=== PATIENT | female | born 1970 | race Caucasian/White ===

== ENCOUNTER 2017-05-28 16:12 | Emergency (ER) | payer OTHER, BC ==
[2017-05-28 16:44] VITALS: BP 118/65
--- NOTE | 2017-05-28 16:51 | EDM.PDOC ---
ED HPI GENERAL MEDICAL PROBLEM - General Chief Complaint: Back Pain or Injury Stated Complaint: INJURED BACK Time Seen by Provider: 05/28/17 16:50 Source of Information: Reports: Patient - History of Present Illness INITIAL COMMENTS - FREE TEXT/NARRATIVE: Patient is here for evaluation for pain to her right middle back. She states that yesterday around 2:50 PM she was at work at [employer] throwing things into the dumpster, she states that she did back up and hit her right middle back on a metal piece that was sticking out of another dumpster. Patient states that she had immediate pain but thought it would get better. She states that when she awoke this morning her pain persisted. As she was at work today pulling carts and lifting things the pain to her right middle back worsened. It is very localized pain and does not radiate. She states that she does have chronic lower back and hip pain, she is under pain management contract and was quick to point this out as she does not want to violate this. Middle Back Pain Score (Numeric/FACES): 7 - Related Data Allergies Allergy/AdvReac Type Severity Reaction Status Date / Time Iodinated Contrast- Oral and AdvReac Shaking Verified 05/28/17 16:45 IV Dye iopamidol [From Isovue-M] AdvReac Shaking Verified 05/28/17 16:45 Home Meds: Home Meds Albuterol Sulfate [Proair Hfa] 2 puff INH BID PRN 04/20/15 [History] Lisinopril/Hydrochlorothiazide [Zestoretic 10-12.5 mg Tablet] 1 each PO DAILY [History] Omeprazole [Prilosec] 1 tab PO DAILY 04/20/15 [History] atorvaSTATin [Lipitor] 1 tab PO DAILY 04/20/15 [History] Acetaminophen with Codeine [Acetamin-Codein 300-30 mg/12.5] 12.5 ml PO Q6H PRN # 120 ml 01/23/16 [Rx] Hydrocodone/Acetaminophen [Hydrocodon-Acetaminophn 10-325] 1 - 2 tab PO Q6H PRN 01/23/16 [History] Ondansetron [Zofran ODT] 4 mg PO Q4H PRN 01/23/16 [History] Amitriptyline [Elavil] 50 mg PO BEDTIME 05/28/17 [History] LORazepam 1 mg PO DAILY 05/28/17 [History] Ranitidine HCl [Ranitidine] 150 mg PO BID 05/28/17 [History] Past Medical History HEENT History: Reports: Impaired Vision Other HEENT History: Glasses Cardiovascular History: Reports: SOB on Exertion Respiratory History: Reports: SOB Gastrointestinal History: Reports: Other (See Below) Other Gastrointestinal History: Precancerous colon Genitourinary History: Reports: Retention, 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: , Other (See Below) Other OB/BYN History: ovarian sx Musculoskeletal History: Reports: Fracture Neurological History: Reports: Concussion - Infectious Disease History Infectious Disease History: Reports: Chicken Pox - Past Surgical History GI Surgical History: Reports: Appendectomy, Cholecystectomy, Hernia, Inguinal Female Surgical History: Reports: Hysterectomy, Tubal Ligation Musculoskeletal Surgical History: Reports: Other (See Below) Social & Family History - Family History Family Medical History: Noncontributory - Tobacco Use Smoking Status *Q: Never Smoker Years of Tobacco use: 1 Used Tobacco, but Quit: Yes Month Tobacco Last Used: 2008 Second Hand Smoke Exposure: No - Caffeine Use Caffeine Use: Reports: Coffee - Alcohol Use Days Per Week of Alcohol Use: 0 Number of Drinks Per Day: 0 Total Drinks Per Week: 0 - Recreational Drug Use Recreational Drug Use: No Drug Use in Last 12 Months: No - Living Situation & Occupation Occupation: Employed ED ROS GENERAL - Review of Systems Review Of Systems: See Below Constitutional: Reports: No Symptoms Respiratory: Reports: No Symptoms Cardiovascular: Reports: No Symptoms Musculoskeletal: Reports: Back Pain, Other (Right middle back pain.) Skin: Reports: No Symptoms Neurological: Reports: No Symptoms ED EXAM,LOWER BACK PAIN/INJURY - Physical Exam Exam: See Below Exam Limited By: No Limitations General Appearance: Alert, WD/WN, No Apparent Distress Respiratory/Chest: No Respiratory Distress, Lungs Clear, Normal Breath Sounds Cardiovascular: Regular Rate, Rhythm, No Murmur, No Rub Back Exam: Other (1"contusion to her right middle back at approximately the level of T12. Localized tenderness to this and mild surrounding tenderness. No tenderness to thoracic or lumbar spinous process. No muscle spasms noted. Patient has limited overall flexibility of her back but this appears chronic and not related to injury.) Neurological: Alert, Normal Mood/Affect, Oriented x 3 Psychiatric: Normal Affect, Normal Mood Skin Exam: Warm, Dry, Intact, Ecchymosis (1 inch area of ecchymosis to her right middle back.) Course - Vital Signs Last Recorded V/S: Last Vital Signs Temp 97.6 F 05/28/17 16:41 Pulse 62 05/28/17 16:41 Resp 18 05/28/17 16:41 BP 118/65 05/28/17 16:41 Pulse Ox 98 05/28/17 16:41 - Orders/Labs/Meds Orders: Active Orders 24 hr Category Date Time Status Ribs 2V w Chest Rt [CR] Stat Exams 05/28/17 17:04 Taken Meds: Medications Discontinued Medications Generic Name Dose Route Start Last Admin Trade Name Rolly PRN Reason Stop Dose Admin Ketorolac Tromethamine 30 mg 05/28/17 16:59 05/28/17 17:03 Toradol IM 05/28/17 17:00 30 mg ONETIME ONE Administration - Re-Assessments/Exams Free Text/Narrative Re-Assessment/Exam: Localized contusion and associated tenderness. With her amount of pain question if possible rib injury. Will get rib x-ray. Toradol injection for pain. 05/28/17 17:[address] Hayden, no rib fracture noted. Contusion of right mid- back. Recommend rest, ice, NSAIDs. She has hydrocodone for breakthrough pain. No lifting/pushing/pulling >20lbs. She is to FU with PCP in 1 week or return to ER if needed. 05/28/17 18:29 Departure - Departure Time of Disposition: 18:11 Disposition: Home, Self-Care 01 Condition: Good Clinical Impression: Contusion Qualifiers: Encounter type: initial encounter Laterality: right - Discharge Information Instructions: Contusion Referrals: Rupal Helms [facility] [employer] [Primary Care Provider] - Forms: ED Department Discharge, ED Return to Work/School Form Additional Instructions: You were evaluated today in the Emergency room for back pain, xray did not demonstrate any fracture. You have a contusion (bruise) to your back. I recommend you rest, ice 15 minutes every few hours as needed for pain. No lifting/pushing/pulling over 20lbs for 1 week. Ibuprofen 800mg 3x daily as needed for pain, you also have your hydrocodone for breakthrough pain. Follow-up with your PCP in 1 week or sooner if needed, you may return to ER if any worsening. - My Orders Last 24 Hours: My Active Orders 05/28/17 17:04 Ribs 2V w Chest Rt [CR] Stat - Assessment/Plan Last 24 Hours: My Active Orders 05/28/17 17:04 Ribs 2V w Chest Rt [CR] Stat
[2017-05-28] MEDS ORDERED: Ketorolac 30 MG/ML SDV IM ONE (16:59)
--- NOTE | 2017-05-29 06:55 | CR ---
Chest and right ribs: Frontal view of the chest was obtained as well as three views of the right ribs. Comparison: Prior chest x-ray of 01/23/16. Heart size and mediastinum are within normal limits. Lungs are clear. Surgical clips are noted within the upper right abdomen from previous cholecystectomy. No discrete right sided rib abnormality is seen. Impression: 1. No discrete right-sided rib abnormality is appreciated. Nothing acute is seen on accompanying chest x-ray. Diagnostic code #2
== END 2017-05-28 18:20 | disposition home or self-care (01) ==
LOC: JD.ED 16:12
DX: S20.221A Contusion of right back wall of thorax, initial encounter (principal); Z91.041 Radiographic dye allergy status; Z79.899 Other long term (current) drug therapy; Z87.891 Personal history of nicotine dependence; W22.8XXA Striking against or struck by other objects, initial encounter
CPT/HCPCS: 71101; 96372; 99283; J1885; 99282

== ENCOUNTER 2017-10-09 14:40 | Emergency (ER) | payer BC, OTHER ==
--- NOTE | 2017-10-09 15:53 | EDM.PDOC ---
<Linda Christie - Last Filed: 10/09/17 15:48> ED HPI GENERAL MEDICAL PROBLEM - General Chief Complaint: Abdominal Pain Stated Complaint: ABD PAIN Time Seen by Provider: 10/09/17 15:30 Source of Information: Reports: Patient History Limitations: Reports: No Limitations - History of Present Illness INITIAL COMMENTS - FREE TEXT/NARRATIVE: 47 yo female presents for worsening abdominal pain over the past 5 days. She states she has chronic abdominal for the past few years with intermittent diarrhea and nausea. She feels her symptoms today are similar but have become much worse than they have been in a long time. She returned from [facility] today after visiting her for the past 10 days. She believes her symptoms started long before her travel and does not associate her loose stool with travel or dietary changes. Her main complaint today is RUQ abdominal pain that is always there and waxes and wanes throughout the day. She believes nothing has made it better, no position improves pain. She took a Zofran this morning for nausea but vomited anyways. Her last bowel movement was last night. She said she has had blood in her stool on occasion, but has had a previous workup for this and colonoscopy with no diagnosis. She has been able to keep fluids down today. She has an appt to see here PCP on 10/16/17 and a GI specialist in [place] on 10/24/17. Onset: Gradual Duration: Chronic (years, but worse over the past 5 days), Getting Worse Location: Reports: Abdomen Quality: Reports: Sharp, Stabbing, Other (with cramping) Severity: Moderate Improves with: Reports: None Worsens with: Reports: None Associated Symptoms: Reports: Nausea/Vomiting, Other (diarrhea) RUQ Pain Score (Numeric/FACES): 5 - Related Data Allergies Allergy/AdvReac Type Severity Reaction Status Date / Time Iodinated Contrast- Oral and AdvReac Shaking Verified 10/09/17 14:52 IV Dye iopamidol [From Isovue-M] AdvReac Shaking Verified 10/09/17 14:52 Home Meds: Home Meds Albuterol Sulfate [Proair Hfa] 2 puff INH BID PRN 04/20/15 [History] Lisinopril/Hydrochlorothiazide [Zestoretic 10-12.5 mg Tablet] 1 each PO DAILY [History] Omeprazole [Prilosec] 1 tab PO DAILY 04/20/15 [History] atorvaSTATin [Lipitor] 1 tab PO DAILY 04/20/15 [History] Hydrocodone/Acetaminophen [Hydrocodon-Acetaminophn 10-325] 1 - 2 tab PO Q6H [History] Ondansetron [Zofran ODT] 4 mg PO Q4H PRN 01/23/16 [History] LORazepam 1 mg PO DAILY 05/28/17 [History] Doxepin HCl [Doxepin] 50 mg PO DAILY 10/09/17 [History] Doxycycline [Doxycycline Monohydrate] 100 mg PO BID 10/09/17 [History] Past Medical History HEENT History: Reports: Impaired Vision Other HEENT History: Glasses Cardiovascular History: Reports: SOB on Exertion Respiratory History: Reports: SOB Gastrointestinal History: Reports: Gastritis, GERD, Other (See Below) Other Gastrointestinal History: Precancerous colon, chronic abdominal pain Genitourinary History: Reports: Retention, 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: , Other (See Below) Other OB/BYN History: ovarian sx Musculoskeletal History: Reports: Fracture Neurological History: Reports: Concussion Psychiatric History: Reports: Anxiety - Infectious Disease History Infectious Disease History: Reports: Chicken Pox Other Infectious Disease History: recent trip to [facility], [place] - Past Surgical History GI Surgical History: Reports: Appendectomy, Cholecystectomy, Colonoscopy, Hernia , Inguinal Female Surgical History: Reports: Hysterectomy, Tubal Ligation Musculoskeletal Surgical History: Reports: Other (See Below) Social & Family History - Family History Family Medical History: Noncontributory - Tobacco Use Smoking Status *Q: Never Smoker Second Hand Smoke Exposure: No - Caffeine Use Caffeine Use: Reports: Coffee - Recreational Drug Use Recreational Drug Use: No - Living Situation & Occupation Occupation: Employed ED ROS GENERAL - Review of Systems Review Of Systems: See Below Constitutional: Reports: Fever (not measured) HEENT: Reports: No Symptoms Respiratory: Reports: No Symptoms Cardiovascular: Reports: No Symptoms Endocrine: Reports: No Symptoms GI/Abdominal: Reports: Abdominal Pain (Right side, RUQ the worst ), Bloody Stool , Diarrhea (with urgency and frequent ), Nausea, Vomiting : Reports: No Symptoms Neurological: Reports: Other (mild lightheadedness ). Denies: Headache, Numbness, Paresthesia, Weakness ED EXAM, GI/ABD - Physical Exam Exam: See Below Exam Limited By: No Limitations General Appearance: Alert, WD/WN, Mild Distress Ears: Normal External Exam, Hearing Grossly Normal Head: Atraumatic, Normocephalic Neck: Normal Inspection, Supple, Full Range of Motion Respiratory/Chest: No Respiratory Distress, Lungs Clear, Normal Breath Sounds, No Accessory Muscle Use Cardiovascular: Normal Peripheral Pulses, Regular Rate, Rhythm, No Edema, No Murmur, No Rub GI/Abdominal Exam: Normal Bowel Sounds, Soft, No Distention, Tender (RUQ with light palpation, minimal guarding of the right side) Extremities: Normal Inspection, Non-Tender, No Pedal Edema Neurological: Alert, Oriented, Normal Cognition, No Motor/Sensory Deficits Psychiatric: Normal Affect, Normal Mood Skin Exam: Warm, Dry, Intact, Normal Color Course - Vital Signs Last Recorded V/S: Last Vital Signs Temp 97.3 F 10/09/17 14:46 Pulse 64 10/09/17 19:10 Resp 17 10/09/17 19:10 BP 98/46 L 10/09/17 19:10 Pulse Ox 95 10/09/17 19:10 - Orders/Labs/Meds Labs: Laboratory Tests 10/09/17 10/09/17 Range/Units 16:16 16:16 WBC 7.81 (3.98-10.04) K/mm3 RBC 4.17 (3.98-5.22) M/mm3 Hgb 12.8 (11.2-15.7) gm/L Hct 36.9 (34.1-44.9) % MCV 88.5 (79.4-94.8) fl MCH 30.7 (25.6-32.2) pg MCHC 34.7 (32.2-35.5) g/dl RDW Std Deviation 39.9 (36.4-46.3) fL Plt Count 308 (182-369) K/mm3 MPV 10.3 (9.4-12.3) fl Neut % (Auto) 55.2 (34.0-71.1) % Lymph % (Auto) 33.0 (19.3-51.7) % Thomas % (Auto) 9.3 (4.7-12.5) % Eos % (Auto) 1.8 (0.7-5.8) Baso % (Auto) 0.4 (0.1-1.2) % Neut # (Auto) 4.31 (1.56-6.13) K/mm3 Lymph # (Auto) 2.58 (1.18-3.74) K/mm3 Thomas # (Auto) 0.73 H (0.24-0.36) K/mm3 Eos # (Auto) 0.14 (0.04-0.36) K/mm3 Baso # (Auto) 0.03 (0.01-0.08) K/mm3 Sodium 144 (136-145) mEq/L Potassium 2.9 L (3.5-5.1) mEq/L Chloride 107 (98-107) mEq/L Carbon Dioxide 26 (21-32) mEq/L Anion Gap 13.9 (5-15) BUN 16 (7-18) mg/dL Creatinine 1.1 H (0.55-1.02) mg/dL Est Cr Clr Drug Dosing 44.93 mL/min Estimated GFR (MDRD) 53 (>60) mL/min BUN/Creatinine Ratio 14.5 (14-18) Glucose 104 (74-106) mg/dL Calcium 9.0 (8.5-10.1) mg/dL Total Bilirubin 0.6 (0.2-1.0) mg/dL AST 22 (15-37) U/L ALT 46 (14-59) U/L Alkaline Phosphatase 76 (46-116) U/L Total Protein 6.7 (6.4-8.2) g/dl Albumin 3.6 (3.4-5.0) g/dl Globulin 3.1 gm/dL Albumin/Globulin Ratio 1.2 (1-2) Lipase 183 (73-393) U/L Meds: Medications Discontinued Medications Generic Name Dose Route Start Last Admin Trade Name Freq PRN Reason Stop Dose Admin Dicyclomine HCl 20 mg 10/09/17 16:29 10/09/17 17:07 Bentyl IM 10/09/17 16:30 20 mg ONETIME ONE Administration Diphenhydramine HCl 50 mg 10/09/17 16:32 10/09/17 17:00 Benadryl IVPUSH 10/09/17 16:33 50 mg ONETIME ONE Administration Hydromorphone HCl 1 mg 10/09/17 16:29 10/09/17 17:03 Dilaudid IVPUSH 10/09/17 16:30 1 mg ONETIME ONE Administration Sodium Chloride 1,000 mls @ 999 mls/hr 10/09/17 16:29 10/09/17 16:57 Normal Saline IV 10/09/17 17:29 999 mls/hr ONETIME ONE Administration Metoclopramide HCl 7.5 mg 10/09/17 16:31 10/09/17 16:58 Reglan IVPUSH 10/09/17 16:32 7.5 mg ONETIME ONE Administration Potassium Chloride 20 meq 10/09/17 19:10 10/09/17 19:12 Klor-Con M20 PO 10/09/17 19:11 20 meq ONETIME STA Administration Sodium Chloride 10 ml 10/09/17 16:29 10/09/17 16:57 Saline Flush FLUSH 10 ml ASDIRECTED PRN Administration Keep Vein Open Departure - Departure Disposition: Home, Self-Care 01 Clinical Impression: Abdominal pain - Discharge Information Instructions: Abdominal Pain, Adult Referrals: Rupal Helms, [employer] [Primary Care Provider] - Forms: ED Department Discharge Additional Instructions: Your given medication the other can affect your ability to drive and operate machinery. Do not drive or operate machinery within 12 hours of taking prescription narcotic pain medication. take you pain medication that you have at home as needed for additional discomfort. Recommend clear fluids the next day. May advance to bland diet as tolerated. Continue with your current plan of care. Follow-up with GI as planned. Follow- up with your PCP as planned. Recommend starting a probiotic if you are not already on one. These are available [id number]. Please return to the ER for symptoms change or worsen. <Haleigh Sheth - Last Filed: 10/11/17 15:50> ED HPI GENERAL MEDICAL PROBLEM - History of Present Illness INITIAL COMMENTS - FREE TEXT/NARRATIVE: I have seen the patient and agree with the HPI as documented by Linda Christie. WENDY. Patient reports to me the vomiting started today. She had 2 episodes of billious emesis today. No fevers or chills. She reports the abdominal pain in the epigastric and RUQ has been worsening over the last 2 months. Patient has seen GI in the past. She was referred to [facility] but has not gone. Patient is currently in a pain contrast from chronic pelvic and hip pain. Last pain medication was earlier today. ED EXAM, GI/ABD - Physical Exam GI/Abdominal Exam: No: Rigid, Rebound Course - Radiology Interpretation Free Text/Narrative:: CT abdomen and pelvis Technique: Multiple axial sections were obtained from above the dome of the diaphragm inferiorly to the pubic symphysis. Intravenous and oral contrast not utilized which diminishes details of the exam. Findings: Visualized lung bases shows nothing acute. Noncontrast appearance of the liver and spleen shows no discrete abnormality. Low-density lesion noted within the upper left kidney measuring about 3.6 cm compatible with a cyst. Small nonobstructing calculi measuring several millimeters are seen within the mid and upper left kidney. No ureteral dilatation or ureteral calculi are seen. Adrenal glands show no nodule. Pancreas is within normal limits. Aorta shows atherosclerotic calcification. No aneurysm is seen. No retroperitoneal adenopathy or mesenteric abnormalities are seen. No pelvic mass or adenopathy is seen. Diverticuli are seen within the sigmoid colon without diverticulitis. No bowel dilatation is seen. No bowel wall thickening is identified. Appendix is not visualized with certainty. Bone window settings were reviewed which appears within normal limits for the patient's age. Impression: 1. Incidental findings. Nothing acute is identified on noncontrast CT study of the abdomen and pelvis. Abdomen: Supine and upright views of the abdomen were obtained. Several air-fluid levels are seen within nondilated small bowel which are felt to be incidental. Surgical clips are seen from prior cholecystectomy. Bony structures appear within normal limits for the patient's age. No free air is identified. Impression: 1. Several air-fluid levels within nondilated bowel believed to be normal variant. 2. Nothing acute is seen. - Re-Assessments/Exams Free Text/Narrative Re-Assessment/Exam: 10/09/17 17:16 Reviewed the xray and the labs with the patient. Discussed CT. She has an allergy to IV and oral contrast. If the few air fluids lines are from a bowel obstruction, which I have a low suspicion for, it would likely only be a partial bowel obstruction in which case the treatment plan of bowel rest would be the same. Informed the patient that the CT would not change the treatment plan. She would like to proceed with the CT anyways. 10/11/17 18:[address] results with the patient. Recommend bowel rest clear fluids and a bland diet as tolerated starting tomorrow. Discharge instructions as documented . 10/11/17 19:29 Patient requested more pain medication after discharge. Offered toradol for pain relief, she declined. Still continue with current plan. Departure - Departure Time of Disposition: 18:47 Condition: Fair
[2017-10-09] MEDS ORDERED: Sodium Chloride 0.9% 1,000 ML IV ONE (16:29)
[2017-10-09] MEDS ORDERED: HYDROmorphone 0.5 MG/0.5 ML SYRINGE IVPUSH ONE (16:29)
[2017-10-09] MEDS ORDERED: Dicyclomine 20 MG/2 ML SDV IM ONE (16:29)
[2017-10-09] MEDS ORDERED: Sodium Chloride 0.9% 10 ML Syringe FLUSH PRN (16:29)
[2017-10-09] MEDS ORDERED: Metoclopramide 10 MG/2 ML SDV IVPUSH ONE (16:31)
[2017-10-09] MEDS ORDERED: diphenhydrAMINE 50 MG/ML SDV IVPUSH ONE (16:32)
--- NOTE | 2017-10-09 18:15 | CT ---
CT abdomen and pelvis Technique: Multiple axial sections were obtained from above the dome of the diaphragm inferiorly to the pubic symphysis. Intravenous and oral contrast not utilized which diminishes details of the exam. Findings: Visualized lung bases shows nothing acute. Noncontrast appearance of the liver and spleen shows no discrete abnormality. Low-density lesion noted within the upper left kidney measuring about 3.6 cm compatible with a cyst. Small nonobstructing calculi measuring several millimeters are seen within the mid and upper left kidney. No ureteral dilatation or ureteral calculi are seen. Adrenal glands show no nodule. Pancreas is within normal limits. Aorta shows atherosclerotic calcification. No aneurysm is seen. No retroperitoneal adenopathy or mesenteric abnormalities are seen. No pelvic mass or adenopathy is seen. Diverticuli are seen within the sigmoid colon without diverticulitis. No bowel dilatation is seen. No bowel wall thickening is identified. Appendix is not visualized with certainty. Bone window settings were reviewed which appears within normal limits for the patient's age. Impression: 1. Incidental findings. Nothing acute is identified on noncontrast CT study of the abdomen and pelvis. Diagnostic code #2
[2017-10-09] MEDS ORDERED: Potassium Chloride 20 MEQ Tab.ER PO STA (19:10)
[2017-10-09 19:45] VITALS: BP 98/46
--- NOTE | 2017-10-10 07:44 | CR ---
Abdomen: Supine and upright views of the abdomen were obtained. Several air-fluid levels are seen within nondilated small bowel which are felt to be incidental. Surgical clips are seen from prior cholecystectomy. Bony structures appear within normal limits for the patient's age. No free air is identified. Impression: 1. Several air-fluid levels within nondilated bowel believed to be normal variant. 2. Nothing acute is seen. Diagnostic code #2
== END 2017-10-09 19:15 | disposition home or self-care (01) ==
LOC: JD.ED 14:40
DX: R10.11 Right upper quadrant pain (principal); Z91.041 Radiographic dye allergy status; Z79.899 Other long term (current) drug therapy
CPT/HCPCS: 36415; 74019; 74176; 80053; 83690; 85025; 96361; 96372; 96374; 96375; 99285; A9270; J0500; J1170; J1200; J2765; J7040; J7050; 99284

== ENCOUNTER 2017-12-18 12:00 | Emergency (ER) | payer BC ==
[2017-12-18 12:12] VITALS: BP 126/88
[2017-12-18] MEDS ORDERED: Sodium Chloride 0.9% 10 ML Syringe FLUSH PRN (12:57)
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
[2017-12-18] MEDS ORDERED: Sodium Chloride 0.9% 1,000 ML IV SCH (13:00)
--- NOTE | 2017-12-18 13:25 | CT ---
Head CT Technique: Multiple axial sections through the brain were obtained. Intravenous contrast was not utilized. Comparison: Prior head CT study of 03/24/15. Findings: Ventricles along with basal cisterns and sulci over convexities are within normal limits for the patient's age. No abnormal parenchymal densities are seen. No evidence of intracranial hemorrhage. No midline shift or mass effect is seen. Bone window settings were reviewed which shows no discrete calvarial abnormality. Visualized sinuses are clear. Impression: 1. Nothing acute is appreciated on noncontrast head CT study. No significant change is seen from prior head CT exam. Diagnostic code #1
--- NOTE | 2017-12-18 13:59 | CR ---
Chest: Portable view of the chest was obtained. Comparison: Previous chest x-ray 01/23/16. Heart size and mediastinum are normal. Lungs are clear. Bony structures are grossly intact. Impression: 1. Nothing acute is seen on portable chest x-ray. Diagnostic code #1
[2017-12-18] MEDS ORDERED: Acetaminophen 325 MG Tab PO ONE (15:10)
== END 2017-12-18 15:40 | disposition home or self-care (01) ==
LOC: JD.ED 12:00
DX: R41.0 Disorientation, unspecified (principal); T42.6X5A Adverse effect of other antiepileptic and sedative-hypnotic drugs, initial encounter; I10 Essential (primary) hypertension; J45.909 Unspecified asthma, uncomplicated; F41.9 Anxiety disorder, unspecified; F32.9 Major depressive disorder, single episode, unspecified; Z79.899 Other long term (current) drug therapy
CPT/HCPCS: 36415; 70450; 71045; 80053; 80306; 81001; 84443; 84484; 85007; 85027; 93005; 96360; 96361; 99285; A9270; G0480; J7040; J7050; 99284

== ENCOUNTER 2018-05-21 11:01 | Emergency (ER) | payer BC ==
[2018-05-21 11:37] VITALS: BP 111/81
[2018-05-21] MEDS ORDERED: Sodium Chloride 0.9% 10 ML Syringe FLUSH PRN (11:59)
[2018-05-21] MEDS ORDERED: HYDROmorphone 1 MG/ML Syringe IVPUSH ONE (12:00)
[2018-05-21] MEDS ORDERED: Ondansetron 4 MG/2 ML SDV IVPUSH ONE (14:23)
--- NOTE | 2018-05-21 14:24 | EDM.PDOC ---
ED HPI GENERAL MEDICAL PROBLEM - General Chief Complaint: Respiratory Problem Stated Complaint: FEVER, CHEST PAIN Time Seen by Provider: 05/21/18 11:39 Source of Information: Reports: Patient, Family History Limitations: Reports: No Limitations - History of Present Illness INITIAL COMMENTS - FREE TEXT/NARRATIVE: The patient presents with left sided chest pain, fever, cough and body aches. The chest pain started about 3 weeks ago. The pain is in the left side. She had no shortness of breath with it until last night. She developed a cough, fever and chills. She saw her doctor for the chest pain and everything was okay. She traveled to [place] recently to pickle pumper her grandson. She just got custody of him. She has no nausea or vomiting. She does have some abdominal pain. She did get a flu shot. Onset: Gradual Duration: Day(s): (Yesterday) Location: Reports: Generalized Quality: Reports: Ache Severity: Moderate Improves with: Reports: None Worsens with: Reports: None Associated Symptoms: Reports: Cough, Fever/Chills, Shortness of Breath. Denies : Chest Pain, Headaches, Nausea/Vomiting Flank Pain Score (Numeric/FACES): 7 - Related Data Allergies Allergy/AdvReac Type Severity Reaction Status Date / Time tramadol Allergy Respiratory Verified 05/21/18 11:30 Distress Iodinated Contrast- Oral and AdvReac Shaking Verified 05/21/18 11:29 IV Dye iopamidol [From Isovue-M] AdvReac Shaking Verified 05/21/18 11:29 Home Meds: Home Meds Albuterol Sulfate [Proair Hfa] 2 puff INH BID PRN 04/20/15 [History] Lisinopril/Hydrochlorothiazide [Zestoretic 10-12.5 mg Tablet] 1 each PO DAILY [History] Omeprazole [Prilosec] 1 tab PO DAILY 04/20/15 [History] atorvaSTATin [Lipitor] 1 tab PO DAILY 04/20/15 [History] Hydrocodone/Acetaminophen [Hydrocodon-Acetaminophn 10-325] 1 - 2 tab PO Q6H [History] Ondansetron [Zofran ODT] 4 mg PO Q4H PRN 01/23/16 [History] Doxepin HCl [Doxepin] 50 mg PO DAILY 10/09/17 [History] Methocarbamol 500 mg PO Q6H PRN 12/18/17 [History] PARoxetine [Paxil CR] 12.5 mg PO DAILY 12/18/17 [History] Phenazopyridine HCl [Pyridium] 100 mg PO TID PRN #9 tablet 02/23/18 [Rx] Oseltamivir [Tamiflu] 75 mg PO BID #10 cap 05/21/18 [Rx] Past Medical History HEENT History: Reports: Impaired Vision Other HEENT History: Glasses Cardiovascular History: Reports: Hypertension, SOB on Exertion Respiratory History: Reports: Asthma, SOB Gastrointestinal History: Reports: Gastritis, GERD, Other (See Below) Other Gastrointestinal History: Precancerous colon, chronic abdominal pain Genitourinary History: Reports: Retention, Urinary, UTI, Recurrent, Other (See Below) Other Genitourinary History: states has a cyst on right kidney states it is usually her left kidney that bothers her but right now it is both of them 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: , Other (See Below) Other HEALTH AND FITNESS PROFESSOR History: ovarian sx Musculoskeletal History: Reports: Fracture Neurological History: Reports: Concussion, Migraines Psychiatric History: Reports: Anxiety, Depression - Infectious Disease History Infectious Disease History: Reports: Chicken Pox Other Infectious Disease History: recent trip to [facility], [place] - Past Surgical History HEENT Surgical History: Reports: Oral Surgery GI Surgical History: Reports: Appendectomy, Cholecystectomy, Colonoscopy, Hernia , Inguinal Female Surgical History: Reports: Hysterectomy, Tubal Ligation Social & Family History - Family History Family Medical History: Noncontributory - Tobacco Use Smoking Status *Q: Never Smoker - Caffeine Use Caffeine Use: Reports: Coffee, Tea - Recreational Drug Use Recreational Drug Use: No - Living Situation & Occupation Occupation: Employed ED ROS GENERAL - Review of Systems Review Of Systems: See Below Constitutional: Reports: Fever, Chills, Malaise, Weakness, Fatigue HEENT: Reports: No Symptoms Respiratory: Reports: Shortness of Breath, Cough Cardiovascular: Reports: Chest Pain Endocrine: Reports: Fatigue GI/Abdominal: Reports: Abdominal Pain. Denies: Diarrhea, Nausea, Vomiting : Reports: No Symptoms Musculoskeletal: Reports: Muscle Pain ED EXAM, GENERAL - Physical Exam Exam: See Below Exam Limited By: No Limitations General Appearance: Alert, No Apparent Distress Ears: Normal External Exam Nose: Normal Inspection Head: Atraumatic, Normocephalic Neck: Normal Inspection Respiratory/Chest: No Respiratory Distress, Lungs Clear, Normal Breath Sounds Cardiovascular: Regular Rate, Rhythm, No Edema, No Murmur GI/Abdominal: Soft, Non-Tender, No Organomegaly, No Mass Back Exam: Normal Inspection Extremities: Normal Inspection EKG INTERPRETATION EKG Date: 05/21/18 Time: 12:25 Rhythm: NSR Rate (Beats/Min): 95 [place]: Normal P-Wave: Present QRS: Normal ST-T: Normal QT: Normal Course - Vital Signs Last Recorded V/S: Last Vital Signs Temp 97.2 F 05/21/18 11:34 Pulse 104 H 05/21/18 11:34 Resp 16 05/21/18 11:34 BP 111/81 05/21/18 11:34 Pulse Ox 95 05/21/18 11:34 - Orders/Labs/Meds Orders: Active Orders 24 hr Category Date Time Status Cardiac Monitoring [RC] . DIRECTED Care 05/21/18 12:00 Active EKG Documentation Completion [RC] STAT Care 05/21/18 12:00 Active Peripheral IV Care [RC] . DIRECTED Care 05/21/18 12:00 Active Chest 2V [CR] Stat Exams 05/21/18 12:00 Taken Sodium Chloride 0.9% [Saline Flush] Med 05/21/18 11:59 Active 10 ml FLUSH ASDIRECTED PRN Peripheral IV Insertion Adult [OM.PC] Stat Oth 05/21/18 11:59 Ordered Medication Orders Sodium Chloride (Saline Flush) 10 ml FLUSH ASDIRECTED PRN PRN Reason: Keep Vein Open Last Admin: 05/21/18 12:20 Dose: 10 ml Labs: Laboratory Tests 05/21/18 05/21/18 05/21/18 Range/Units 11:35 11:35 11:35 WBC 8.97 (3.98-10.04) K/mm3 RBC 4.68 (3.98-5.22) M/mm3 Hgb 14.4 (11.2-15.7) gm/L Hct 41.3 (34.1-44.9) % MCV 88.2 (79.4-94.8) fl MCH 30.8 (25.6-32.2) pg MCHC 34.9 (32.2-35.5) g/dl RDW Std Deviation 40.3 (36.4-46.3) fL Plt Count 288 (182-369) K/mm3 MPV 10.3 (9.4-12.3) fl Neut % (Auto) 86.5 H (34.0-71.1) % Lymph % (Auto) 5.1 L (19.3-51.7) % [place] % (Auto) 7.4 (4.7-12.5) % Eos % (Auto) 0.6 L (0.7-5.8) Baso % (Auto) 0.2 (0.1-1.2) % Neut # (Auto) 7.76 H (1.56-6.13) K/mm3 Lymph # (Auto) 0.46 L (1.18-3.74) K/mm3 [place] # (Auto) 0.66 H (0.24-0.36) K/mm3 Eos # (Auto) 0.05 (0.04-0.36) K/mm3 Baso # (Auto) 0.02 (0.01-0.08) K/mm3 Manual Slide Review Abnormal smear Sodium 142 (136-145) mEq/L Potassium 3.4 L (3.5-5.1) mEq/L Chloride 105 (98-107) mEq/L Carbon Dioxide 23 (21-32) mEq/L Anion Gap 17.4 H (5-15) BUN 21 H (7-18) mg/dL Creatinine 1.0 (0.55-1.02) mg/dL Est Cr Clr Drug Dosing 48.88 mL/min Estimated GFR (MDRD) 59 (>60) mL/min BUN/Creatinine Ratio 21.0 H (14-18) Glucose 102 (74-106) mg/dL Calcium 9.6 (8.5-10.1) mg/dL Total Bilirubin 1.0 (0.2-1.0) mg/dL AST 65 H (15-37) U/L ALT 76 H (14-59) U/L Alkaline Phosphatase 145 H (46-116) U/L Troponin I < 0.017 (0.00-0.056) ng/mL Total Protein 7.7 (6.4-8.2) g/dl Albumin 4.0 (3.4-5.0) g/dl Globulin 3.7 gm/dL Albumin/Globulin Ratio 1.1 (1-2) Monoscreen Negative (NEGATIVE) Meds: Medications Generic Name Dose Route Start Last Admin Trade Name Rolly PRN Reason Stop Dose Admin Sodium Chloride 10 ml 05/21/18 11:59 05/21/18 12:20 Saline Flush FLUSH 10 ml ASDIRECTED PRN Administration Keep Vein Open Discontinued Medications Generic Name Dose Route Start Last Admin Trade Name Rolly PRN Reason Stop Dose Admin Hydromorphone HCl 0.5 mg 05/21/18 12:00 05/21/18 12:19 Dilaudid IVPUSH 05/21/18 12:01 0.5 mg ONETIME ONE Administration - Re-Assessments/Exams Free Text/Narrative Re-Assessment/Exam: 05/21/18 14:25 I ordered an IV saline lock, dilaudid 0.5mg IV, EKG, CXR and labs. Her EKG shows a NSR with no acute changes. Her CBC looks good. Her anion gap was elevated at 17.4. Her AST was elevated at 65. Her ALT was elevated at 76. Her alk phos was elevated. Her troponin was normal. Her mono screen was negative. Her influenza A was positive. Departure - Departure Time of Disposition: 14:30 Disposition: Home, Self-Care 01 Condition: Good Clinical Impression: Influenza A Chest pain Qualifiers: Chest pain type: unspecified Qualified Code(s): R07.9 - Chest pain, unspecified - Discharge Information *PRESCRIPTION DRUG MONITORING PROGRAM REVIEWED*: No *COPY OF PRESCRIPTION DRUG MONITORING REPORT IN PATIENT MAGGIE: No Prescriptions: Oseltamivir [Tamiflu] 75 mg PO BID #10 cap Referrals: Brionna Mak, ENGINEHOUSE BRAKEMAN [Primary Care Provider] - Additional Instructions: Take the tamiflu 2 times per day for 5 days. Take tylenol or motrin for pain or fever. Drink plenty of fluids. Make sure you are washing your hands to avoid spreading the virus. Please return if you are worse. - My Orders Last 24 Hours: My Active Orders 05/21/18 11:59 Sodium Chloride 0.9% [Saline Flush] 10 ml FLUSH ASDIRECTED PRN Peripheral IV Insertion Adult [OM.PC] Stat 05/21/18 12:00 Cardiac Monitoring [RC] . DIRECTED EKG Documentation Completion [RC] STAT Peripheral IV Care [RC] . DIRECTED Chest 2V [CR] Stat - Assessment/Plan Last 24 Hours: My Active Orders 05/21/18 11:59 Sodium Chloride 0.9% [Saline Flush] 10 ml FLUSH ASDIRECTED PRN Peripheral IV Insertion Adult [OM.PC] Stat 05/21/18 12:00 Cardiac Monitoring [RC] . DIRECTED EKG Documentation Completion [RC] STAT Peripheral IV Care [RC] . DIRECTED Chest 2V [CR] Stat
--- NOTE | 2018-05-21 14:43 | CR ---
Chest: Two views of the chest were obtained. Comparison: Previous chest x-ray of 12/18/17. Heart size and mediastinum are normal. Lungs are clear. Bony structures appear within normal limits for the patient's age. Impression: 1. Nothing acute is appreciated on two-view chest x-ray. Diagnostic code #1
== END 2018-05-21 14:44 | disposition home or self-care (01) ==
LOC: JD.ED 11:01
DX: J10.1 Influenza due to other identified influenza virus with other respiratory manifestations (principal); R07.9 Chest pain, unspecified; I10 Essential (primary) hypertension; F41.9 Anxiety disorder, unspecified; F32.9 Major depressive disorder, single episode, unspecified; Z91.041 Radiographic dye allergy status
CPT/HCPCS: 36415; 71046; 80053; 84484; 85025; 86308; 87804; 93005; 96374; 96375; 99284; J1170; J2405; 93010

== ENCOUNTER 2018-09-25 07:52 | Day surgery (SDC) | payer BC ==
[~2018-09-25 07:52] MED LIST: Lactated Ringers 1,000 ML IV SCH; Lidocaine 1%/Sod Bicarbonate in NS 8.4% 1 ML Syringe IDERM PRN; Scopolamine 1.5 MG Transdermal Patch TOP PRN; Sodium Chloride 0.9% 10 ML Syringe FLUSH PRN
[2018-09-25] MEDS ORDERED: Propofol 200 MG/20 ML SDV ONE (09:21)
[2018-09-25] MEDS ORDERED: Midazolam 1 MG/ML 2 ML SDV ONE (09:21)
[2018-09-25] MEDS ORDERED: fentaNYL 100 MCG/2 ML SDV ONE (09:21)
[2018-09-25] MEDS ORDERED: Ondansetron 4 MG/2 ML SDV ONE (09:21)
[2018-09-25] MEDS ORDERED: Lidocaine 1% 6 ML ONE (09:21)
[2018-09-25] MEDS ORDERED: Lidocaine 1% 30 ML SDV ONE (09:29)
[2018-09-25] MEDS ORDERED: Bupivacaine 0.25%/EPINEPHrine 1:200,000 30 ML SDV ONE ×2 (09:29→09:30)
[2018-09-25] MEDS ORDERED: Triamcinolone Acetonide 40 MG/ML 1 ML MDV ONE (09:29)
--- NOTE | 2018-09-25 09:37 | PCM.PREANE ---
Preanesthetic Assessment - Anesthesia/Transfusion/Family Hx Anesthesia History: Prior Anesthesia Reaction Type of Anesthesia Reaction: Excessive Nausea/Vomiting Family History of Anesthesia Reaction: No Transfusion History: No Prior Transfusion(s) Intubation History: Unknown - Review of Systems Pulmonary: No Symptoms (Asthma no inhaler needed for months. JC with CPAP at night. quit smoking in 2008), Shortness of Breath Cardiovascular: No Symptoms (HTN), Palpitations, Dyspnea on Exertion, Orthopnea Gastrointestinal: No Symptoms (GERD) Neurological: No Symptoms (History of lumbar radiculopathy/Lower back pain/ Patient states epidural injections noted for lower extremity pain), Numbness ( Noted in all four extremities) Other: Reports: None, Easy Bleeding, Easy Bruising - Physical Assessment NPO Status Date: 09/24/18 NPO Status Time: 21:00 Pulse: 68 O2 Sat by Pulse Oximetry: 96 Respiratory Rate: 16 Blood Pressure: 108/58 Temperature: 36.6 C Vital Signs: Last Vital Signs Temp 36.6 C 09/25/18 08:00 Pulse 68 09/25/18 08:00 Resp 16 09/25/18 08:00 BP 108/58 L 09/25/18 08:00 Pulse Ox 96 09/25/18 08:00 Height: 1.52 m Weight: 91.172 kg ASA Class: 2 Mental Status: Alert & Oriented x3 Airway Class: Mallampati = 3 Dentition: Reports: Dentures Thyro-Mental Finger Breadths: 3 Mouth Opening Finger Breadths: 3 ROM/Head Extension: Full Lungs: Clear to Auscultation, Normal Respiratory Effort Cardiovascular: Regular Rate, Regular Rhythm, No Murmurs - Lab Values: Laboratory Last Values MRSA (PCR) Negative 09/17/18 17:12 All labs reviewed and noted and within acceptable ranges to proceed with scheduled procedure. - Imaging/EKG Impressions: EKG: SR rate=62 CXR: unremarkable - Allergies Allergies/Adverse Reactions: Allergies Allergy/AdvReac Type Severity Reaction Status Date / Time topiramate [From Topamax] Allergy Confusion Verified 09/25/18 08:19 Iodinated Contrast- Oral and AdvReac Shaking Verified 05/21/18 11:29 IV Dye iopamidol [From Isovue-M] AdvReac Shaking Verified 05/21/18 11:29 - Anesthesia Plan Pre-Op Medication Ordered: None - Acknowledgements Anesthesia Type Planned: MAC Pt an Appropriate Candidate for the Planned Anesthesia: Yes Alternatives and Risks of Anesthesia Discussed w Pt/Guardian: Yes Pt/Guardian Understands and Agrees with Anesthesia Plan: Yes PreAnesthesia Questionnaire HEENT History: Reports: Impaired Vision Other HEENT History: Glasses Cardiovascular History: Reports: Hypertension, SOB on Exertion Respiratory History: Reports: Asthma, SOB Gastrointestinal History: Reports: Gastritis, GERD, Other (See Below) Other Gastrointestinal History: Precancerous colon, chronic abdominal pain Genitourinary History: Reports: Retention, Urinary, UTI, Recurrent, Other (See Below) Other Genitourinary History: states has a cyst on right kidney states it is usually her left kidney that bothers her but right now it is both of them 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: , Other (See Below) Other OB/BYN History: ovarian sx Musculoskeletal History: Reports: Fracture Neurological History: Reports: Concussion, Migraines Psychiatric History: Reports: Anxiety, Depression - Infectious Disease History Infectious Disease History: Reports: Chicken Pox Other Infectious Disease History: recent trip to [facility] - Past Surgical History HEENT Surgical History: Reports: Oral Surgery GI Surgical History: Reports: Appendectomy, Cholecystectomy, Colonoscopy, Hernia , Inguinal Female Surgical History: Reports: Hysterectomy, Tubal Ligation - HOME MEDS Home Medications: Home Meds Albuterol Sulfate [Proair Hfa] 2 puff INH BID PRN 04/20/15 [History] Lisinopril/Hydrochlorothiazide [Zestoretic 10-12.5 mg Tablet] 1 tab PO DAILY [History] Omeprazole [Prilosec] 1 tab PO DAILY 04/20/15 [History] atorvaSTATin [Lipitor] 1 tab PO DAILY 04/20/15 [History] Hydrocodone/Acetaminophen [Hydrocodon-Acetaminophn 10-325] 1 - 2 tab PO Q6H [History] Ondansetron [Zofran ODT] 4 mg PO Q4H PRN 01/23/16 [History] - CURRENT (IN HOUSE) MEDS Current Meds: Current Medications Lactated Ringer's (Ringers, Lactated) 1,000 mls @ 125 mls/hr IV ASDIRECTED NICHELLE Stop: 09/25/18 23:00 Last Admin: 09/25/18 08:25 Dose: 125 mls/hr Lidocaine/Sodium Bicarbonate (Buffered Lidocaine 1% In Ns 8.4%) 0.25 ml IDERM ONETIME PRN PRN Reason: Prior to IV Start Stop: 09/25/18 18:00 Last Admin: 09/25/18 08:25 Dose: 0.25 ml Scopolamine (Transderm-Scop) 1.5 mg TOP ONETIME PRN PRN Reason: Nausea/Vomiting Stop: 09/25/18 18:00 Sodium Chloride (Saline Flush) 10 ml FLUSH ASDIRECTED PRN PRN Reason: Keep Vein Open Stop: 09/25/18 18:00 Discontinued Medications Fentanyl (Sublimaze) Confirm Administered Dose 100 mcg .ROUTE .STK-MED ONE Stop: 09/25/18 09:22 Lidocaine HCl (Xylocaine-Mpf 1%) Confirm Administered Dose 6 mls @ as directed .ROUTE .STK-MED ONE Stop: 09/25/18 09:22 Midazolam HCl (Versed 1 Mg/Ml) Confirm Administered Dose 2 mg .ROUTE .STK-MED ONE Stop: 09/25/18 09:22 Ondansetron HCl (Zofran) Confirm Administered Dose 4 mg .ROUTE .STK-MED ONE Stop: 09/25/18 09:22 Propofol (Diprivan 20 Ml) Confirm Administered Dose 200 mg .ROUTE .STK-MED ONE Stop: 09/25/18 09:22
[2018-09-25] MEDS ORDERED: Ondansetron 4 MG/2 ML SDV IVPUSH PRN (09:56)
[2018-09-25] MEDS ORDERED: diphenhydrAMINE 50 MG/ML SDV IVPUSH PRN (09:56)
[2018-09-25] MEDS ORDERED: HYDROmorphone 0.5 MG/0.5 ML Syringe IVPUSH PRN (09:56)
[2018-09-25] MEDS ORDERED: fentaNYL 100 MCG/2 ML SDV IVPUSH PRN (09:56)
[2018-09-25] MEDS: Bupivacaine 0.25% 10 ML SDV ONE ×2 (10:03→10:12)
--- NOTE | 2018-09-25 10:27 | PCM48HPAN ---
Post Anesthesia Note - EVALUATION WITHIN 48HRS OF ANESTHETIC Vital Signs in Normal Range: Yes Patient Participated in Evaluation: Yes Respiratory Function Stable: Yes Airway Patent: Yes Cardiovascular Function Stable: Yes Hydration Status Stable: Yes Pain Control Satisfactory: Yes Nausea and Vomiting Control Satisfactory: Yes Mental Status Recovered: Yes Pulse Rate: 4 SaO2: 93 Resp Rate: 10 Temperature: 36.6 C Blood Pressure: 88/58
[2018-09-25 10:33] VITALS: BP 119/61
--- NOTE | 2018-09-25 10:53 | PCM.OPNOTE ---
- General Post-Op/Procedure Note Date of Surgery/Procedure: 09/25/18 Operative Procedure(s): right carpal tunnel release with left carpal tunnel injection Pre Op Diagnosis: bilateral median nerve compression neuropathy Post-Op Diagnosis: Same Anesthesia Technique: Local, MAC Primary Surgeon: Billy Scott Anesthesia Provider: Kinga Srinivasan Medical Office Receptionist Assistant: Hanna Becker in mLs: 5 Complications: None Condition: Good
--- NOTE | 2018-09-25 11:26 | OR ---
DATE OF OPERATION: 09/25/2018 SURGEON: Blily Scott MD OPERATION PERFORMED: Right carpal tunnel release with left carpal tunnel injection. PREOPERATIVE DIAGNOSIS: Bilateral median nerve compression neuropathy. POSTOPERATIVE DIAGNOSIS: Bilateral median nerve compression neuropathy. ANESTHESIA: Local MAC. PRIMARY SURGEON: Dr. Billy Scott MD ANESTHESIA PROVIDER: Kinga Srinivasan CRNA SHIP CLEANER: Hanna Becker PA-C. ESTIMATED BLOOD LOSS: Less than 5 mL. COMPLICATIONS: None. CONDITION: Stable. DESCRIPTION OF PROCEDURE: The patient was identified in the preop holding area. Proper site was marked and identified by the surgeon. The patient was taken back to the operating theater where after adequate anesthesia, the patient's right upper extremity was sterilely prepped and draped in the usual sterile fashion. OR time-out was performed. The patient did not receive antibiotics and it is not indicated for soft tissue hand procedure. At this time, the right upper extremity was exsanguinated and an Esmarch was used as a tourniquet on the forearm. At this time, using 1% lidocaine without epinephrine and 0.25% Marcaine without epinephrine, the palmar cutaneous branch of the median nerve was anesthetized and then the incisional site was anesthetized using Sim cardinal line and ulnar border of the fourth digit as reference. Once this had set up, an incision was made. Blunt dissection was taken down to the palmar cutaneous fascia. Palmar cutaneous fascia was incised with a Darke blade. At this time, the transverse carpal ligament was identified. A small rent was made in the transverse carpal ligament with a Darke blade under direct visualization. Resection of the transverse carpal ligament was done distally using tenotomy scissors making sure to stop short of the palmar arch. At this time, attention was turned proximally after it was found to be adequately released. Using the tenotomy scissors keeping the tips ulnar to protect the palmar cutaneous branch of the median nerve, the superficial forearm fascia as well as the transverse carpal ligament were resected proximally. It was found to be adequate release both proximally and distally. At this time, adequate saline was irrigated through the wound. A 4-0 nylon sutures were used closure of the skin. After this was completed under sterile technique, 1 mL of 40 mg Kenalog and 2 mL of 0.25% Marcaine were injected to the left carpal tunnel. The patient was placed in a sterile soft dressing. The patient tolerated both procedures well and sent to PACU in stable condition. HENRIETTA /[id number]
== END 2018-09-25 11:02 | disposition home or self-care (01) ==
LOC: JD.SDS 07:52
PROVIDERS: ATTEND Orthopaedic Surgery
DX: G56.03 Carpal tunnel syndrome, bilateral upper limbs (principal); I10 Essential (primary) hypertension; E78.00 Pure hypercholesterolemia, unspecified; J45.909 Unspecified asthma, uncomplicated; F33.9 Major depressive disorder, recurrent, unspecified; K21.0 Gastro-esophageal reflux disease with esophagitis; G47.33 Obstructive sleep apnea (adult) (pediatric); M54.16 Radiculopathy, lumbar region; E66.01 Morbid (severe) obesity due to excess calories; Z68.38 Body mass index [BMI] 38.0-38.9, adult; Z88.8 Allergy status to other drugs, medicaments and biological substances; Z91.041 Radiographic dye allergy status; Z99.89 Dependence on other enabling machines and devices; Z87.891 Personal history of nicotine dependence; Z79.891 Long term (current) use of opiate analgesic; Z79.899 Other long term (current) drug therapy
CPT/HCPCS: 20605; 64721; 87641; J2001; J2250; J2405; J2704; J3010; J3301; J3490; J7120; 01810

== ENCOUNTER 2019-04-16 17:11 | Emergency (ER) | payer BC ==
[2019-04-16] MEDS ORDERED: Sodium Chloride 0.9% 10 ML Syringe FLUSH PRN (17:36)
[2019-04-16] MEDS ORDERED: HYDROmorphone 1 MG/ML Syringe IVPUSH ONE (17:37)
[2019-04-16] MEDS ORDERED: Ondansetron 4 MG/2 ML SDV IVPUSH ONE (17:37)
[2019-04-16] MEDS ORDERED: Acetaminophen 325 MG Tab PO ONE (17:38)
[2019-04-16] MEDS ORDERED: Sodium Chloride 0.9% 1,000 ML IV SCH (17:45)
[2019-04-16 18:39] VITALS: BP 133/81; PULSE 92
--- NOTE | 2019-04-16 18:43 | EDM.PDOC ---
ED HPI GENERAL MEDICAL PROBLEM - General Chief Complaint: Fever Stated Complaint: FLU LIKE SYMPTOMS Time Seen by Provider: 04/16/19 17:19 Source of Information: Reports: Patient History Limitations: Reports: No Limitations - History of Present Illness INITIAL COMMENTS - FREE TEXT/NARRATIVE: The patient presents with a fever and chills. She had surgery on her left shoulder about 4 weeks ago. She is not progressing as fast as she should. She has limited motion and she has some warmth in her shoulder. She saw her therapist yesterday and Dr Mercedes. They both noticed some warmth in her shoulder and they wanted her to tell her surgeon today when she had a follow up. She saw Gianni and she was not able to tell her. She came home and she started to not feel well. She then felt chilled and had the shakes. She came and had a temp of 103. She also had some nausea and vomiting. She has a slight cough. She has no sore throat or ear pain. She has no chest pain or shortness of breath. She has no abdominal pain, dysuria or diarrhea. She did get the flu shot this year. She also has some body aches. Onset: Gradual Duration: Hour(s): Location: Reports: Generalized Quality: Reports: Ache Severity: Severe Improves with: Reports: None Worsens with: Reports: None Associated Symptoms: Reports: Cough, Fever/Chills. Denies: Chest Pain, Headaches, Nausea/Vomiting, Shortness of Breath Left Shoulder Pain Score (Numeric/FACES): 7 - Related Data Allergies Allergy/AdvReac Type Severity Reaction Status Date / Time Iodinated Contrast Media AdvReac Shaking Verified 05/21/18 11:29 iopamidol [From Isovue-M] AdvReac Shaking Verified 05/21/18 11:29 topiramate [From Topamax] AdvReac Confusion Verified 12/17/18 08:20 Home Meds: Home Meds Albuterol Sulfate [Proair Hfa] 2 puff INH BID PRN 04/20/15 [History] Lisinopril/Hydrochlorothiazide [Zestoretic 10-12.5 mg Tablet] 1 tab PO DAILY [History] Omeprazole [Prilosec] 1 tab PO DAILY 04/20/15 [History] atorvaSTATin [Lipitor] 1 tab PO DAILY 04/20/15 [History] Hydrocodone/Acetaminophen [Hydrocodon-Acetaminophn 10-325] 1 - 2 tab PO Q6H [History] Ondansetron [Zofran ODT] 4 mg PO Q4H PRN 01/23/16 [History] Oseltamivir [Tamiflu] 75 mg PO BID #10 cap 04/16/19 [Rx] Past Medical History HEENT History: Reports: Impaired Vision Other HEENT History: Glasses Cardiovascular History: Reports: Hypertension, SOB on Exertion Respiratory History: Reports: Asthma, SOB Gastrointestinal History: Reports: Gastritis, GERD, Other (See Below) Other Gastrointestinal History: Precancerous colon, chronic abdominal pain Genitourinary History: Reports: Retention, Urinary, UTI, Recurrent, Other (See Below) Other Genitourinary History: states has a cyst on right kidney states it is usually her left kidney that bothers her but right now it is both of them [employer] History: Reports: , Other (See Below) Other [employer] History: ovarian sx Musculoskeletal History: Reports: Fracture Neurological History: Reports: Concussion, Migraines Psychiatric History: Reports: Anxiety, Depression Oncologic (Cancer) History: Reports: Other (See Below) Other Oncologic History: pre-cancer of colon, Dx'd during colonoscopy. - Infectious Disease History Infectious Disease History: Reports: Chicken Pox Other Infectious Disease History: recent trip to [facility] - Past Surgical History HEENT Surgical History: Reports: Oral Surgery GI Surgical History: Reports: Appendectomy, Cholecystectomy, Colonoscopy, Hernia , Inguinal Female Surgical History: Reports: Hysterectomy, Tubal Ligation Social & Family History - Family History Family Medical History: Noncontributory - Tobacco Use Smoking Status *Q: Never Smoker Second Hand Smoke Exposure: No - Caffeine Use Caffeine Use: Reports: Coffee - Recreational Drug Use Recreational Drug Use: No - Living Situation & Occupation Occupation: Employed ED ROS GENERAL - Review of Systems Review Of Systems: See Below Constitutional: Reports: Fever, Chills, Malaise, Weakness, Fatigue HEENT: Reports: No Symptoms Respiratory: Reports: Cough. Denies: Shortness of Breath Cardiovascular: Reports: No Symptoms Endocrine: Reports: No Symptoms GI/Abdominal: Reports: Nausea, Vomiting. Denies: Abdominal Pain : Reports: No Symptoms Musculoskeletal: Reports: No Symptoms Skin: Reports: No Symptoms Neurological: Reports: No Symptoms ED EXAM, SEPSIS - Physical Exam Exam: See Below Exam Limited By: No Limitations General Appearance: Alert, No Apparent Distress Ears: Normal External Exam Nose: Normal Inspection Head: Atraumatic, Normocephalic Neck: Normal Inspection, Supple, Non-Tender Respiratory/Chest: No Respiratory Distress, Lungs Clear, Normal Breath Sounds Cardiovascular: Regular Rate, Rhythm, No Edema, No Murmur GI/Abdominal Exam: Soft, Non-Tender, No Organomegaly, No Mass Back: Normal Inspection Extremities: Other (Pain upon palpation to the left shoulder. He whole body feels warm with a temp of 103.) Neurological: Alert, Oriented, No Motor/Sensory Deficits Course - Vital Signs Last Recorded V/S: Last Vital Signs Temp 100.6 F 04/16/19 18:39 Pulse 92 04/16/19 18:38 Resp 12 04/16/19 18:38 BP 133/81 04/16/19 18:38 Pulse Ox 94 L 04/16/19 18:38 - Orders/Labs/Meds Orders: Active Orders 24 hr Category Date Time Status Cardiac Monitoring [RC] . DIRECTED Care 04/16/19 17:37 Active Peripheral IV Care [RC] . DIRECTED Care 04/16/19 17:37 Active Chest 2V [CR] Stat Exams 04/16/19 17:37 Taken SEDIMENTATION RATE AUTO [HEME] Stat Lab 04/16/19 17:55 Received Sodium Chloride 0.9% [Normal Saline] 1,000 ml Med 04/16/19 17:45 Active IV .BOLUS Sodium Chloride 0.9% [Saline Flush] Med 04/16/19 17:36 Active 10 ml FLUSH ASDIRECTED PRN Peripheral IV Insertion Adult [OM.PC] Stat Oth 04/16/19 17:36 Ordered Medication Orders Sodium Chloride (Normal Saline) 1,000 mls @ 1,000 mls/hr IV .BOLUS NICHELLE Last Admin: 04/16/19 18:27 Dose: 1,000 mls/hr Sodium Chloride (Saline Flush) 10 ml FLUSH ASDIRECTED PRN PRN Reason: Keep Vein Open Last Admin: 04/16/19 17:55 Dose: 10 ml Labs: Laboratory Tests 04/16/19 04/16/19 Range/Units 17:55 17:55 WBC 11.01 H (3.98-10.04) K/mm3 RBC 4.60 (3.98-5.22) M/mm3 Hgb 14.1 (11.2-15.7) gm/dl Hct 41.0 (34.1-44.9) % MCV 89.1 (79.4-94.8) fl MCH 30.7 (25.6-32.2) pg MCHC 34.4 (32.2-35.5) g/dl RDW Std Deviation 40.1 (36.4-46.3) fL Plt Count 297 (182-369) K/mm3 MPV 9.5 (9.4-12.3) fl Neut % (Auto) 80.6 H (34.0-71.1) % Lymph % (Auto) 9.3 L (19.3-51.7) % Cherry % (Auto) 8.8 (4.7-12.5) % Eos % (Auto) 0.6 L (0.7-5.8) Baso % (Auto) 0.3 (0.1-1.2) % Neut # (Auto) 8.88 H (1.56-6.13) K/mm3 Lymph # (Auto) 1.02 L (1.18-3.74) K/mm3 Cherry # (Auto) 0.97 H (0.24-0.36) K/mm3 Eos # (Auto) 0.07 (0.04-0.36) K/mm3 Baso # (Auto) 0.03 (0.01-0.08) K/mm3 Manual Slide Review Normal smear Sodium 137 (136-145) mEq/L Potassium 3.7 (3.5-5.1) mEq/L Chloride 100 (98-107) mEq/L Carbon Dioxide 27 (21-32) mEq/L Anion Gap 13.7 (5-15) BUN 20 H (7-18) mg/dL Creatinine 0.9 (0.55-1.02) mg/dL Est Cr Clr Drug Dosing 53.71 mL/min Estimated GFR (MDRD) > 60 (>60) mL/min BUN/Creatinine Ratio 22.2 H (14-18) Glucose 108 H (74-106) mg/dL Calcium 9.3 (8.5-10.1) mg/dL Total Bilirubin 1.0 (0.2-1.0) mg/dL AST 26 (15-37) U/L ALT 55 (14-59) U/L Alkaline Phosphatase 104 (46-116) U/L C-Reactive Protein 3.0 H* (<1.0) mg/dL Total Protein 7.7 (6.4-8.2) g/dl Albumin 4.0 (3.4-5.0) g/dl Globulin 3.7 gm/dL Albumin/Globulin Ratio 1.1 (1-2) Meds: Medications Generic Name Dose Route Start Last Admin Trade Name Freq PRN Reason Stop Dose Admin Sodium Chloride 1,000 mls @ 1,000 mls/hr 04/16/19 17:45 04/16/19 18:27 Normal Saline IV 1,000 mls/hr .BOLUS NICHELLE Administration Sodium Chloride 10 ml 04/16/19 17:36 04/16/19 17:55 Saline Flush FLUSH 10 ml ASDIRECTED PRN Administration Keep Vein Open Discontinued Medications Generic Name Dose Route Start Last Admin Trade Name Freq PRN Reason Stop Dose Admin Acetaminophen 975 mg 04/16/19 17:38 04/16/19 18:39 Tylenol PO 04/16/19 17:39 975 mg NOW ONE Administration Hydromorphone HCl 1 mg 04/16/19 17:37 04/16/19 18:24 Dilaudid IVPUSH 04/16/19 17:38 1 mg ONETIME ONE Administration Ondansetron HCl 4 mg 04/16/19 17:37 04/16/19 18:22 Zofran IVPUSH 04/16/19 17:38 4 mg ONETIME ONE Administration - Re-Assessments/Exams Free Text/Narrative Re-Assessment/Exam: 04/16/19 18:46 I ordered an IV NS 1L bolus, dilaudid 1mg IV, labs and CXR. 04/16/19 18:47 I also gave zofran 4mg IV and acetaminophen 975mg PO. 04/16/19 19:07 Her CXR looks good. Her WBC was up slightly at 11.01. Her BUN was up slightly at 20. Her CRP was elevated at 3. She feels better. I am waiting on a sed rate. 04/16/19 19:27 I called [facility] in [place] and talked with Dr Ray the orthopedic surgeon zoning assistant and he felt this was less likely her shoulder. He read the note from her visit today and she had good motion and you would not have that with an infection. The fever also did come on rapidly. He wanted her to call Dr Agee's office if she got worse. I feel this is a viral URI. I feel this is the flu. It was negative but I feel this was a false negative and I would like to treat her. I will get her on some tamiflu. Departure - Departure Time of Disposition: 19:30 Disposition: Home, Self-Care 01 Condition: Good Clinical Impression: Influenza, Viral URI - Discharge Information *PRESCRIPTION DRUG MONITORING PROGRAM REVIEWED*: Not Applicable *COPY OF PRESCRIPTION DRUG MONITORING REPORT IN PATIENT MAGGIE: Not Applicable Prescriptions: Oseltamivir [Tamiflu] 75 mg PO BID #10 cap Referrals: Brionna Mak, [employer] PATHOLOGIST [Primary Care Provider] - 1 Week Forms: ED Department Discharge Additional Instructions: Take the tamiflu 2 times per day for 5 days. Drink plenty of fluids. Take motrin or tylenol for pain. Please return if you are worse. Call Dr Agee' s office if you have more shoulder pain. Sepsis Event Note - Evaluation Sepsis Screening Result: No Definite Risk - Focused Exam Vital Signs: Vital Signs Temp Temp Pulse Resp BP Pulse Ox 04/16/19 18:39 100.6 F 04/16/19 18:38 100.6 F 92 12 133/81 94 L 04/16/19 17:16 103 F H 124 H 20 149/78 H 97 Date Exam was Performed: 04/16/19 Time Exam was Performed: 19:27 - My Orders Last 24 Hours: My Active Orders 04/16/19 17:36 Sodium Chloride 0.9% [Saline Flush] 10 ml FLUSH ASDIRECTED PRN Peripheral IV Insertion Adult [OM.PC] Stat 04/16/19 17:37 Cardiac Monitoring [RC] . DIRECTED Peripheral IV Care [RC] . DIRECTED Chest 2V [CR] Stat 04/16/19 17:45 Sodium Chloride 0.9% [Normal Saline] 1,000 ml IV .BOLUS 04/16/19 17:55 SEDIMENTATION RATE AUTO [HEME] Stat - Assessment/Plan Last 24 Hours: My Active Orders 04/16/19 17:36 Sodium Chloride 0.9% [Saline Flush] 10 ml FLUSH ASDIRECTED PRN Peripheral IV Insertion Adult [OM.PC] Stat 04/16/19 17:37 Cardiac Monitoring [RC] . DIRECTED Peripheral IV Care [RC] . DIRECTED Chest 2V [CR] Stat 04/16/19 17:45 Sodium Chloride 0.9% [Normal Saline] 1,000 ml IV .BOLUS 04/16/19 17:55 SEDIMENTATION RATE AUTO [HEME] Stat
[2019-04-16] MEDS ORDERED: diphenhydrAMINE 50 MG/ML SDV IVPUSH ONE (19:57)
--- NOTE | 2019-04-17 06:40 | CR ---
Chest: Two views of the chest were obtained. Comparison: Prior chest x-ray of 05/21/18. Heart size is within normal limits. Tortuous thoracic aorta is seen. Lungs are clear with no acute parenchymal change. Bony structures appear within normal limits for the patient's age. Impression: 1. Nothing acute is seen on two-view chest x-ray. Diagnostic code #1 This report was dictated in [place] Standard Time
== END 2019-04-16 20:34 | disposition home or self-care (01) ==
LOC: JD.ED 17:11 → SUPCPDRO 17:11 → JD.ED 20:34
DX: J11.1 Influenza due to unidentified influenza virus with other respiratory manifestations (principal); I10 Essential (primary) hypertension; K21.9 Gastro-esophageal reflux disease without esophagitis; F41.9 Anxiety disorder, unspecified; F32.9 Major depressive disorder, single episode, unspecified; Z79.899 Other long term (current) drug therapy; Z88.8 Allergy status to other drugs, medicaments and biological substances
CPT/HCPCS: 36415; 71046; 80053; 85025; 85652; 86140; 87804; 96361; 96374; 96375; 99284; A9270; J1170; J1200; J2405; J7030; 99283

== ENCOUNTER 2019-04-17 22:54 | Inpatient (IN) | payer BC ==
[2019-04-17] MEDS ORDERED: Lactated Ringers 1,000 ML IV ONE (23:56)
[2019-04-17] MEDS ORDERED: Ondansetron 4 MG/2 ML SDV IVPUSH ONE (23:57)
[2019-04-17] MEDS ORDERED: HYDROmorphone 0.5 MG/0.5 ML Syringe IVPUSH ONE (23:57)
[2019-04-17] MEDS ORDERED: Ketorolac 30 MG/ML SDV IVPUSH STA (23:57)
--- NOTE | 2019-04-17 23:59 | EDM.PDOC ---
ED HPI GENERAL MEDICAL PROBLEM - General Chief Complaint: Fever Stated Complaint: FEVER Time Seen by Provider: 04/17/19 23:13 Source of Information: Reports: Patient, Family (Daughter), Old Records (ED ) History Limitations: Reports: No Limitations - History of Present Illness INITIAL COMMENTS - FREE TEXT/NARRATIVE: Ms. Pepe is a pleasant 49-year-old woman with a past medical history significant for hypertension, dyslipidemia, possible asthma, gastritis, GERD, and morbid obesity, who was seen in this ED on 04/16/2019, with a complaint at that time of a fever up to 103, nausea, vomiting, slight cough, and body aches. She denied having a sore throat or ear pain. No chest pain or dyspnea. No abdominal pain or urinary symptoms. No watery diarrhea. She was found to have a temperature of 100.6. CBC found her WBC count to be elevated at 11.01, but was otherwise unremarkable. Her CMP was unremarkable. Her CRP was mildly elevated at 3.0. Chest x-ray was unremarkable, and an influenza swab returned negative. Nevertheless, the patient was clinically felt to have influenza, and was prescribed Tamiflu. The patient now returns to the ED, stating that she has had continued fever, up to 104.4, as measured by an electronic oral thermometer, just prior to coming to the ED, along with vomiting, including vomiting some blood, and a headache since this morning. She states that she developed a cough shortly after leaving the ED on 04/16/2019. She denies having sinus congestion, rhinorrhea, or a sore throat. She states that she has been taking the Tamiflu as prescribed, and Tylenol, with her most recent dose at 14:00 this afternoon. She does not take ibuprofen, as it causes her to have stomach cramps. The patient reports that she was in [place] from 03/07/2019 through 03/18/2019. She states that she received a yellow fever vaccine prior to going, and that she was prescribed a malaria prophylaxis - she thinks it was doxycycline - that she took once a day while there. She states that she promptly discontinued it upon returning home, however, because she had to have left shoulder surgery on 03/20/2019. The patient's PCP is Brionna Mak NP. The patient did receive an influenza vaccine this season. - Related Data Allergies Allergy/AdvReac Type Severity Reaction Status Date / Time Iodinated Contrast Media AdvReac Shaking Verified 04/16/19 20:59 iopamidol [From Isovue-M] AdvReac Shaking Verified 04/16/19 20:59 topiramate [From Topamax] AdvReac Confusion Verified 04/16/19 20:59 Home Meds: Home Meds Albuterol Sulfate [Proair Hfa] 2 puff INH BID PRN 04/20/15 [History] Lisinopril/Hydrochlorothiazide [Zestoretic 10-12.5 mg Tablet] 1 tab PO DAILY [History] Omeprazole [Prilosec] 1 tab PO DAILY 04/20/15 [History] atorvaSTATin [Lipitor] 1 tab PO DAILY 04/20/15 [History] Hydrocodone/Acetaminophen [Hydrocodon-Acetaminophn 10-325] 1 - 2 tab PO Q6H [History] Ondansetron [Zofran ODT] 4 mg PO Q4H PRN 01/23/16 [History] Oseltamivir [Tamiflu] 75 mg PO BID #10 cap 04/16/19 [Rx] Past Medical History HEENT History: Reports: Impaired Vision Other HEENT History: wears glasses Cardiovascular History: Reports: High Cholesterol, Hypertension Respiratory History: Reports: Asthma (suspected, not confirmed) Gastrointestinal History: Reports: Colon Polyp, Gastritis, GERD 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: , Other (See Below) Musculoskeletal History: Reports: Fracture (left thumb) Psychiatric History: Reports: Anxiety, Depression Endocrine/Metabolic History: Reports: Obesity/BMI 30+ - Infectious Disease History Infectious Disease History: Reports: Chicken Pox Other Infectious Disease History: recent trip to [facility], [place] - Past Surgical History HEENT Surgical History: Reports: Oral Surgery (dental extractions) GI Surgical History: Reports: Appendectomy, Cholecystectomy (2012), Colonoscopy (x 3 or 4), EGD (x 5 or 10), Hernia, Abdominal (x 2) Female Surgical History: Reports: Hysterectomy (complete), Tubal Ligation Social & Family History - Family History Family Medical History: Noncontributory - Tobacco Use Smoking Status *Q: Former Smoker Years of Tobacco use: 12 Packs/Tins Daily: 0.1 Month/Year Tobacco Last Used: Quit around 1999 Second Hand Smoke Exposure: No - Caffeine Use Caffeine Use: Reports: Coffee - Alcohol Use Alcohol Use History: Yes Alcohol Use Frequency: Rarely - Recreational Drug Use Recreational Drug Use: No - Living Situation & Occupation Living situation: Reports: (), with Family (Grandson) Occupation: Employed ([employer]) ED ROS GENERAL - Review of Systems Review Of Systems: Comprehensive ROS is negative, except as noted in HPI. ED EXAM, GENERAL - Physical Exam Exam: See Below Exam Limited By: No Limitations General Appearance: Alert, WD/WN Eye Exam: Bilateral Eye: EOMI, Normal Inspection Ears: Normal External Exam, Normal Canal, Hearing Grossly Normal, Normal TMs Nose: Normal Inspection, No Blood, Other (Right nasal mucosa edema. Left normal. ) Throat/Mouth: Normal Inspection, Normal Lips, Normal Teeth, Normal Gums, Normal Oropharynx, Normal Voice, No Airway Compromise Head: Atraumatic, Normocephalic Neck: Normal Inspection, Supple, Non-Tender, Full Range of Motion. No: Lymphadenopathy (L), Lymphadenopathy (R) Respiratory/Chest: No Respiratory Distress, Lungs Clear, Normal Breath Sounds, No Accessory Muscle Use. No: Decreased Breath Sounds, Crackles, Rhonchi, Wheezing, Stridor, Prolonged Expiration Cardiovascular: Normal Peripheral Pulses, No Edema, No Gallop, No JVD, No Murmur , No Rub, Tachycardia (regular) Peripheral Pulses: 4+: Radial (L), Radial (R) GI/Abdominal: Normal Bowel Sounds, Soft, Non-Tender, No Organomegaly, No Distention, No Abnormal Bruit, No Mass (Female) Exam: Deferred Rectal (Female) Exam: Deferred Back Exam: Normal Inspection, Full Range of Motion, NT Extremities: Normal Inspection, Normal Range of Motion, No Pedal Edema, Normal Capillary Refill Neurological: Alert, Oriented, CN II-XII Intact, Normal Cognition, Other ( Weakness to the bilateral upper and lower extremities, however, it is felt that her weakness is factitious or hysterical, not metabolic, as her weakness was pulsatile, and she used no accessory muscles to try to overcome a genuine weakness. Additionally, after instructed the patient that it was important that she cooperate with the exam, her lower extremity strength immediately improved.) Psychiatric: Anxious Skin Exam: Warm, Dry, Intact, Normal Color, No Rash Lymphatic: No Adenopathy Course - Vital Signs Last Recorded V/S: Last Vital Signs Temp 37.0 C 04/17/19 23:13 Pulse 126 H 04/17/19 23:13 Resp 22 H 04/17/19 23:13 BP 143/68 H 04/17/19 23:13 Pulse Ox 97 04/18/19 05:35 - Orders/Labs/Meds Orders: Active Orders 24 hr Category Date Time Status Orthostatic Vital Signs [RC] STAT Care 04/17/19 23:54 Active CULTURE AFB AND SMEAR [MREF] Stat Lab 04/18/19 02:36 Ordered CULTURE BLOOD [BC] Stat Lab 04/17/19 23:56 Received CULTURE BLOOD [BC] Stat Lab 04/17/19 23:56 Received CULTURE BLOOD [BC] Stat Lab 04/18/19 03:12 Received LEGIONELLA ANTIGEN [MREF] Stat Lab 04/18/19 05:17 Received MALARIA SMEARS [MREF] Stat Lab 04/18/19 04:45 Received MISC TEST Stat Lab 04/18/19 00:15 Received Sodium Chloride 3% Med 04/18/19 03:45 Active 3 ml NEB STAT Blood Culture x2 Reflex Set [OM.PC] Stat Oth 04/17/19 23:54 Ordered Medication Orders Sodium Chloride (Sodium Chloride 3%) 3 ml NEB STAT NICHELLE Last Admin: 04/18/19 04:04 Dose: 3 ml Labs: Laboratory Tests 04/18/19 04/18/19 04/18/19 Range/Units 00:15 00:15 00:15 WBC 7.26 (3.98-10.04) K/mm3 RBC 4.48 (3.98-5.22) M/mm3 Hgb 13.8 (11.2-15.7) gm/dl Hct 40.0 (34.1-44.9) % MCV 89.3 (79.4-94.8) fl MCH 30.8 (25.6-32.2) pg MCHC 34.5 (32.2-35.5) g/dl RDW Std Deviation 40.0 (36.4-46.3) fL Plt Count 232 (182-369) K/mm3 MPV 9.9 (9.4-12.3) fl Neutrophils % (Manual) 85 H (40-60) % Band Neutrophils % 1 (0-10) % Lymphocytes % (Manual) 9 L (20-40) % Atypical Lymphs % 0 % Monocytes % (Manual) 5 (2-10) % Eosinophils % (Manual) 0 L (0.7-5.8) % Basophils % (Manual) 0 L (0.1-1.2) Platelet Estimate Adequate RBC Morph Comment Normal Sodium 136 (136-145) mEq/L Potassium 3.4 L (3.5-5.1) mEq/L Chloride 100 (98-107) mEq/L Carbon Dioxide 26 (21-32) mEq/L Anion Gap 13.4 (5-15) BUN 14 (7-18) mg/dL Creatinine 0.9 (0.55-1.02) mg/dL Est Cr Clr Drug Dosing 53.71 mL/min Estimated GFR (MDRD) > 60 (>60) mL/min BUN/Creatinine Ratio 15.6 (14-18) Glucose 135 H (74-106) mg/dL Lactic Acid (0.4-2.0) mmol/L Calcium 9.0 (8.5-10.1) mg/dL Magnesium 1.4 L (1.8-2.4) mg/dl Total Bilirubin 1.1 H (0.2-1.0) mg/dL AST 50 H (15-37) U/L ALT 77 H (14-59) U/L Alkaline Phosphatase 120 H (46-116) U/L Total Protein 7.5 (6.4-8.2) g/dl Albumin 3.5 (3.4-5.0) g/dl Globulin 4.0 gm/dL Albumin/Globulin Ratio 0.9 L (1-2) HIV-1 Ab Rapid Screen Negative (NEGATIVE) 04/18/19 Range/Units 00:23 WBC (3.98-10.04) K/mm3 RBC (3.98-5.22) M/mm3 Hgb (11.2-15.7) gm/dl Hct (34.1-44.9) % MCV (79.4-94.8) fl MCH (25.6-32.2) pg MCHC (32.2-35.5) g/dl RDW Std Deviation (36.4-46.3) fL Plt Count (182-369) K/mm3 MPV (9.4-12.3) fl Neutrophils % (Manual) (40-60) % Band Neutrophils % (0-10) % Lymphocytes % (Manual) (20-40) % Atypical Lymphs % % Monocytes % (Manual) (2-10) % Eosinophils % (Manual) (0.7-5.8) % Basophils % (Manual) (0.1-1.2) Platelet Estimate RBC Morph Comment Sodium (136-145) mEq/L Potassium (3.5-5.1) mEq/L Chloride (98-107) mEq/L Carbon Dioxide (21-32) mEq/L Anion Gap (5-15) BUN (7-18) mg/dL Creatinine (0.55-1.02) mg/dL Est Cr Clr Drug Dosing mL/min Estimated GFR (MDRD) (>60) mL/min BUN/Creatinine Ratio (14-18) Glucose (74-106) mg/dL Lactic Acid 1.3 (0.4-2.0) mmol/L Calcium (8.5-10.1) mg/dL Magnesium (1.8-2.4) mg/dl Total Bilirubin (0.2-1.0) mg/dL AST (15-37) U/L ALT (14-59) U/L Alkaline Phosphatase (46-116) U/L Total Protein (6.4-8.2) g/dl Albumin (3.4-5.0) g/dl Globulin gm/dL Albumin/Globulin Ratio (1-2) HIV-1 Ab Rapid Screen (NEGATIVE) Meds: Medications Generic Name Dose Route Start Last Admin Trade Name Freq PRN Reason Stop Dose Admin Sodium Chloride 3 ml 04/18/19 03:45 04/18/19 04:04 Sodium Chloride 3% NEB 3 ml STAT NICHELLE Administration Discontinued Medications Generic Name Dose Route Start Last Admin Trade Name Freq PRN Reason Stop Dose Admin Amoxicillin/Clavulanate Potassium 1 tab 04/18/19 01:28 04/18/19 01:57 Augmentin 875 Mg/125 Mg PO 04/18/19 01:29 1 tab ONETIME STA Administration Azithromycin 500 mg 04/18/19 01:30 04/18/19 01:57 Zithromax PO 04/18/19 01:31 500 mg ONETIME STA Administration Hydromorphone HCl 0.5 mg 04/17/19 23:57 04/18/19 00:22 Dilaudid IVPUSH 04/17/19 23:58 0.5 mg ONETIME ONE Administration Hydromorphone HCl 0.5 mg 04/18/19 05:09 04/18/19 05:21 Dilaudid IVPUSH 04/18/19 05:10 0.5 mg ONETIME ONE Administration Lactated Ringer's 1,000 mls @ 999 mls/hr 04/17/19 23:56 04/18/19 00:22 Ringers, Lactated IV 04/18/19 00:56 999 mls/hr .BOLUS ONE Administration Magnesium Sulfate 2 gm/ Premix 50 mls @ 50 mls/hr 04/18/19 01:28 04/18/19 01: 55 IV 04/18/19 02:27 50 mls/hr ONETIME ONE Administration Ketorolac Tromethamine 30 mg 04/17/19 23:57 04/18/19 00:22 Toradol IVPUSH 04/17/19 23:58 30 mg ONETIME STA Administration Ondansetron HCl 4 mg 04/17/19 23:57 04/18/19 00:21 Zofran IVPUSH 04/17/19 23:58 4 mg ONETIME ONE Administration Ondansetron HCl 4 mg 04/18/19 05:09 04/18/19 05:17 Zofran IVPUSH 04/18/19 05:10 4 mg ONETIME ONE Administration Sodium Chloride 4 ml 04/18/19 05:15 04/18/19 05:34 Sodium Chloride 3% NEB 04/18/19 05:16 4 ml Q6HRRT ONE Administration - Re-Assessments/Exams Free Text/Narrative Re-Assessment/Exam: 04/17/19 23:[address] Hutton's evaluation from yesterday, that the patient is likely suffering from influenza. She had a temperature of 100.6 when seen in the ED yesterday, and claims to have had a temperature of 104.4 just prior to coming to the ED tonight, however, she is found to be completely afebrile here in the ED. She has not been taking ibuprofen, because it gives her stomach cramps, and her last Tylenol was at 14:00 this afternoon. This suggests that her home thermometer is not functioning properly, but also tells me that she has not been as aggressive with the treatment of her symptoms as she could have been. She has had a cough, vomiting, including some blood that likely represents a Nikole-Helton tear, and a headache. Clearly, she does not feel very well, however, at the same time, there is a great deal of drama involved. The patient was minimally cooperative with the neurologic exam, not even being able to extend her leg against gravity until I explained to her that it is important that she cooperate with the neurologic exam, because I do not want to have to perform unnecessary tests, such as a lumbar puncture, simply because she does not feel well enough to cooperate with the exam. The patient's cooperation improved after that. While the patient's workup yesterday was largely unremarkable, I have ordered a repeat evaluation, including blood work, a chest x-ray, a lactic acid level, 2 sets of blood cultures, orthostatics, and a CT scan of her head, just to make sure that we are not missing anything. In the meantime, the patient will receive IV fluid, some IV Dilaudid and Toradol to treat her headache and body aches, and some IV Zofran to treat her nausea. 04/18/19 01:20 CT of the head without contrast is read by [facility] as "No hydrocephalus, acute intracranial hemorrhage, or mass effect." 2-view chest radiograph reviewed. The cardiac silhouette is within normal limits. No pulmonary vascular congestion. No pleural effusions. There is a middle lobe infiltrate, not seen on the chest x-ray from 04/16/2019. No pneumothorax. Formal read per the Radiologist pending. The patient's CBC is completely normal. Her CMP is remarkable for a potassium slightly depressed at 3.4, and a blood glucose mildly elevated at 135. Her total bilirubin is slightly elevated at 1.1. Her AST/ALT are mildly elevated at 50/77. Her alkaline phosphatase is mildly elevated at 120, with the remainder of her CMP being unremarkable. Her magnesium level is depressed at 1.4. Her lactic acid level is within normal limits at 1.3. Orthostatics are still pending. Since the patient reports that she was in [place] from 03/07/2019 through 2018, I have given some consideration as to whether or not the patient might be suffering from either yellow fever or malaria. She states that she was vaccinated for yellow fever, and the onset of her symptoms is much longer than one would expect with yellow fever. Additionally, from her CBC yesterday and today, she has neither leukopenia nor neutropenia, which one would expect with yellow fever. With respect to malaria, however, 90% of the malaria in [facility] is due to Plasmodium falciparum. The patient states that she took her antimalarial medication - she believes it was doxycycline - once a day, but that she stopped it immediately upon returning home on 03/18/2019. This is a problem, since she should have kept taking it for 4 weeks after returning home. When one looks at the symptoms associated with P. falciparum malaria, the patient has most of those symptoms, including fever, chills, diaphoresis, cough, tachypnea, tachycardia, nausea, vomiting, some abdominal pain, headache, malaise, fatigue, and anorexia. She has not had any diarrhea, arthralgias, or myalgias, and her fever does not appear to come in paroxysms, nevertheless, I believe there is ample evidence to suspect malaria. 04/18/19 02:41 We attempted to reach the Infectious Disease specialist at [facility], however, he is apparently not available. Case then discussed with Dr. Sean Lucas, an Infectious Disease specialist at . He agrees that the patient could have malaria, and that the diagnosis needs to be made immediately. He noted that the patient could have severe malaria based on a number of criteria, including the degree of parasitemia alone. It is for this reason that the diagnosis needs to be made as quickly as possible. He recommended that we perform a malaria smear right away, even if the ammunition assembly ii laborer is not familiar with the technique. He recommended that if another alignment technician is familiar with the technique, that they be called in. If the patient is found to have malaria, she will need to be transferred to their facility right away, as there are currently no medications in the [facility] that can treat malaria. The needed medication would need to be acquired via the [facility], which would be best managed through an ID specialist. In addition to the malaria smear, he recommended that we also evaluate for typhoid fever by acquiring a 3rd set of blood cultures, because Salmonella bacteremia is usually very low. He also recommended that we check for HIV, and check a Legionella antigen. He recommended that we evaluate for TB by checking 3 AFB smear samples. Lastly, he recommended that we evaluate for Cryptococcal pneumonia with a Cryptococcus antigen. Dr. Lucas recommended that the patient be admitted to the hospital and kept until the blood culture results have returned, typically a couple of days, because there is no other way to rule out typhoid fever other than by blood culture. He recommended that we switch the patient to Rocephin and azithromycin, as opposed to Augmentin and azithromycin. He recommended that we not start the patient on a fluoroquinolone, as fluoroquinolones can treat TB, making diagnosis more difficult. All of these orders were entered, and I discussed the malaria smear and 3 AFB smears with the laboratory cureman. Our lab order set, however, does not include Cryptococcus antigen, therefore that will have to be put off until the morning. 04/18/19 04:18 Notified by the ammunition assembly ii laborer that they are unable to interpret the malaria smear here, that it is a send-out to [place]. I asked the alignment technician to prepare the smear anyway, and we will work on getting it to [place] as soon as possible. Further, she indicated that the 3 AFB smears are intended to be obtained once each morning for 3 mornings, not all at the same time. She was able to find a code for a Cryptococcal AG, and will order that for me. 04/18/19 04:25 The above situation was discussed with Crissy ROSALES. She will see if we can have the smear transported to [place] by the police or an ambulance. 04/18/19 05:02 The malaria smear has been picked up and is currently being transported to [place] by a [facility] the [facility] [employer]. It will be taken to [facility], where Crissy ROSALES has ascertained that someone proficient in interpreting malaria smears will be present when the sample arrives. 04/18/19 05:09 I updated the patient on the situation. The patient states that she has received one hypertonic saline neb, and expects to receive a second, but has not yet been able to produce a sputum sample for the AFB smear. She states that she still has a severe headache, and feels nauseated. I will order some additional Dilaudid and Zofran. 04/18/19 08:20 Notified that the lab technicians at [facility] reviewed the patient's malaria slide, and did not see any parasites, however, the side has to be reviewed by a Pathologist, which may not occur until this afternoon. I will therefore contact the Hospitalist to admit the patient. 04/18/19 08:[address] Jefferson here in the ED. She accepted the patient for admission to the hospital. Departure - Departure Time of Disposition: 08:50 Disposition: Admitted As Inpatient 65 Condition: Good Clinical Impression: Right middle lobe pneumonia, Nausea and vomiting, Headache, Hypomagnesemia - Discharge Information *PRESCRIPTION DRUG MONITORING PROGRAM REVIEWED*: Not Applicable *COPY OF PRESCRIPTION DRUG MONITORING REPORT IN PATIENT MAGGIE: Not Applicable Referrals: Brionna Mak NP [Ordering Only Provider] - Forms: ED Department Discharge Sepsis Event Note - Evaluation Sepsis Screening Result: Possible Sepsis Risk - Focused Exam Vital Signs: Vital Signs Temp Pulse Resp BP Pulse Ox Pulse Ox 04/18/19 05:35 97 04/18/19 04:05 94 L 04/17/19 23:13 37.0 C 126 H 22 H 143/68 H 94 L Date Exam was Performed: 04/18/19 Time Exam was Performed: 08:49 - My Orders Last 24 Hours: My Active Orders 04/17/19 23:54 Orthostatic Vital Signs [RC] STAT Blood Culture x2 Reflex Set [OM.PC] Stat 04/17/19 23:56 CULTURE BLOOD [BC] Stat CULTURE BLOOD [BC] Stat 04/18/19 00:15 MISC TEST Stat 04/18/19 02:36 CULTURE AFB AND SMEAR [MREF] Stat 04/18/19 03:12 CULTURE BLOOD [BC] Stat 04/18/19 03:45 Sodium Chloride 3% 3 ml NEB STAT 04/18/19 04:45 MALARIA SMEARS [MREF] Stat 04/18/19 05:17 LEGIONELLA ANTIGEN [MREF] Stat - Assessment/Plan Last 24 Hours: My Active Orders 04/17/19 23:54 Orthostatic Vital Signs [RC] STAT Blood Culture x2 Reflex Set [OM.PC] Stat 04/17/19 23:56 CULTURE BLOOD [BC] Stat CULTURE BLOOD [BC] Stat 04/18/19 00:15 MISC TEST Stat 04/18/19 02:36 CULTURE AFB AND SMEAR [MREF] Stat 04/18/19 03:12 CULTURE BLOOD [BC] Stat 04/18/19 03:45 Sodium Chloride 3% 3 ml NEB STAT 04/18/19 04:45 MALARIA SMEARS [MREF] Stat 04/18/19 05:17 LEGIONELLA ANTIGEN [MREF] Stat
[2019-04-18] MEDS ORDERED: Amoxicillin/Clavulanate K 875-125 MG Tab PO STA (01:28)
[2019-04-18] MEDS ORDERED: Magnesium Sulfate/Water 2 GM in Premix Bag 1 BAG IV ONE (01:28)
[2019-04-18] MEDS ORDERED: Azithromycin 250 MG Tab PO STA (01:30)
[2019-04-18] MEDS ORDERED: Sodium Chloride 3% Inhalation Soln 4 ML Neb NEB SCH (03:45)
[2019-04-18] MEDS ORDERED: HYDROmorphone 0.5 MG/0.5 ML Syringe IVPUSH ONE (05:09)
[2019-04-18] MEDS ORDERED: Ondansetron 4 MG/2 ML SDV IVPUSH ONE (05:09)
[2019-04-18] MEDS ORDERED: Sodium Chloride 3% Inhalation Soln 4 ML Neb NEB ONE (05:15)
--- NOTE | 2019-04-18 07:50 | CT ---
Head CT Technique: Multiple axial sections through the brain were obtained. Intravenous contrast was not utilized. Comparison: Previous head CT study of 12/18/17. Findings: Ventricles along with basal cisterns and sulci over the convexities appear within normal limits for the patient's age. No abnormal parenchymal densities are seen. No evidence of intracranial hemorrhage. No midline shift or mass effect is seen. Bone window settings were reviewed which show no acute calvarial abnormality. Visualized mastoid sinuses and paranasal sinuses are clear. Impression: 1. Nothing acute is seen on noncontrast head CT study. 2. No appreciable change is seen from previous exam. Diagnostic code #1 This report was dictated in [place] Standard Time I agree with preliminary report from [facility], finalized on 04/18/19, 2:13 AM Central Time
--- NOTE | 2019-04-18 07:50 | CR ---
Chest: Two views of the chest were obtained. Comparison: Previous chest x-ray of 04/16/19. Focal density is noted within the right middle lobe. Lungs otherwise are clear. Heart size and mediastinum are normal. Bony structures are unremarkable for the patient's age. Surgical clips are seen within the upper abdomen. Impression: 1. Right middle lobe density most likely representing pneumonia. Diagnostic code #3 This report was dictated in [place] Standard Time
[2019-04-18] MEDS ORDERED: Acetaminophen/Butalbital/Caffeine 325-50-40 MG Tab PO PRN (11:34)
[2019-04-18] MEDS: Ondansetron 4 MG Tab.DIS PO PRN ×2 (11:49→17:51)
--- NOTE | 2019-04-18 12:42 | PCM.HP.2 ---
H&P History of Present Illness - General Date of Service: 04/18/19 ( ) Admit Problem/Dx: Admission Diagnosis/Problem Admission Diagnosis/Problem Pneumonia - History of Present Illness Initial Comments - Free Text/Narative: This is a 49-year-old woman with a past medical history of hypertension, dyslipidemia, possible asthma, gastritis, GERD, and morbid obesity complaining of continued fever, up to 104.4, as measured by an electronic oral thermometer , just prior to coming to the ED, along with vomiting, including vomiting some blood, and a headache since this morning. She states that she developed a cough shortly after leaving the ED on 04/16/2019. She denies having sinus congestion, rhinorrhea, or a sore throat. Of note she was seen in this ED on 04/16/2019, with a complaint at that time of a fever up to 103, nausea, vomiting, slight cough, and body aches. She denied having a sore throat or ear pain. No chest pain or dyspnea. No abdominal pain or urinary symptoms. No watery diarrhea. She was found to have a temperature of 100.6. CBC found her WBC count to be elevated at 11.01, but was otherwise unremarkable. Her CMP was unremarkable. Her CRP was mildly elevated at 3.0. Chest x-ray was unremarkable, and an influenza swab returned negative. Nevertheless, the patient was clinically felt to have influenza, and was prescribed Tamiflu. She states that she has been taking the Tamiflu as prescribed, and Tylenol, with her most recent dose at 14:00 this afternoon. She does not take ibuprofen, as it causes her to have stomach cramps. - Related Data Allergies/Adverse Reactions: Allergies Allergy/AdvReac Type Severity Reaction Status Date / Time Iodinated Contrast Media AdvReac Shaking Verified 04/18/19 11:46 iopamidol [From Isovue-M] AdvReac Shaking Verified 04/18/19 11:46 topiramate [From Topamax] AdvReac Confusion Verified 04/18/19 11:46 Home Medications: Home Meds Albuterol Sulfate [Proair Hfa] 2 puff INH BID PRN 04/20/15 [History] Lisinopril/Hydrochlorothiazide [Zestoretic 10-12.5 mg Tablet] 1 tab PO DAILY [History] Omeprazole [Prilosec] 1 tab PO DAILY 04/20/15 [History] atorvaSTATin [Lipitor] 1 tab PO DAILY 04/20/15 [History] Hydrocodone/Acetaminophen [Hydrocodon-Acetaminophn 10-325] 1 - 2 tab PO Q6H PRN 01/23/16 [History] Ondansetron [Zofran ODT] 4 mg PO Q4H PRN 01/23/16 [History] Oseltamivir [Tamiflu] 75 mg PO BID #10 cap 04/16/19 [Rx] Past Medical History HEENT History: Reports: Impaired Vision Other HEENT History: wears glasses Cardiovascular History: Reports: High Cholesterol, Hypertension Respiratory History: Reports: Asthma, Sleep Apnea Gastrointestinal History: Reports: Colon Polyp, Gastritis, GERD Other Gastrointestinal History: Precancerous colon, chronic abdominal pain Genitourinary History: Reports: Retention, Urinary, UTI, Recurrent, Other (See Below) Other Genitourinary History: states has a cyst on right kidney states it is usually her left kidney that bothers her but right now it is both of them 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 - Infectious Disease History Infectious Disease History: Reports: Chicken Pox Other Infectious Disease History: [facility] - Past Surgical History HEENT Surgical History: Reports: Oral Surgery GI Surgical History: Reports: Appendectomy, Cholecystectomy, Colonoscopy, EGD, Hernia, Abdominal Female Surgical History: Reports: Hysterectomy, Tubal Ligation Social & Family History - Family History Family Medical History: Noncontributory - Tobacco Use Smoking Status *Q: Former Smoker Years of Tobacco use: 12 Packs/Tins Daily: 0.1 Used Tobacco, but Quit: Yes Month/Year Tobacco Last Used: 1998 Second Hand Smoke Exposure: No - Caffeine Use Caffeine Use: Reports: Coffee - Recreational Drug Use Recreational Drug Use: No - Living Situation & Occupation Living situation: Reports: (), with Family (Grandson) Occupation: Employed ([employer]) H&P Review of Systems - Review of Systems: Review Of Systems: See Below General: Reports: Fever, Chills, Malaise, Diaphoresis. Denies: Weakness, Fatigue, Night Sweats, Decreased Appetite, Weight Loss HEENT: Denies: Post Nasal Drip, Sinus Congestion, Sore Throat, Vertigo, Visual Changes Pulmonary: Reports: Cough. Denies: Shortness of Breath, Wheezing, Pleuritic Chest Pain, Sputum Cardiovascular: Denies: Chest Pain, Palpitations, Dyspnea on Exertion, Orthopnea , PND, Edema, Lightheadedness, Syncope, Claudication Gastrointestinal: Reports: Nausea, Vomiting. Denies: Abdominal Pain, Anorexia, Black Stool, Bloody Stool, Constipation, Diarrhea, Decreased Appetite, Difficulty Swallowing, Distension, Flatus, Hematemesis, Hematochezia, Melena Genitourinary: Denies: Dysuria, Frequency, Burning, Pain, Urgency, Incontinence , Hematuria, Retention, Discharge Musculoskeletal: Denies: Joint Pain, Joint Swelling, Muscle Pain, Muscle Stiffness Skin: Denies: Cyanosis, Jaundice, Mottled, Pallor, Diaphoresis Psychiatric: Denies: Confusion, Depression, Mood Lability, Anxiety, Agitation Neurological: Reports: Headache. Denies: Confusion, Dizziness, Numbness Exam - Exam Exam: See Below - Vital Signs Vital Signs: Last Vital Signs Temp 98.6 F 04/17/19 23:13 Pulse 126 H 04/17/19 23:13 Resp 22 H 04/17/19 23:13 BP 143/68 H 04/17/19 23:13 Pulse Ox 97 04/18/19 05:35 Weight: 87.18 kg - Exam Physical Exam Comments:: General Appearance: Alert, WD/WN Eye Exam: Bilateral Eye: EOMI, Normal Inspection Ears: Normal External Exam, Normal Canal, Hearing Grossly Normal, Normal TMs Nose: Normal Inspection, No Blood, Other (Right nasal mucosa edema. Left normal. ) Throat/Mouth: Normal Inspection, Normal Lips, Normal Teeth, Normal Gums, Normal Oropharynx, Normal Voice, No Airway Compromise Head: Atraumatic, Normocephalic Neck: Normal Inspection, Supple, Non-Tender, Full Range of Motion. No: Lymphadenopathy (L), Lymphadenopathy (R) Respiratory/Chest: No Respiratory Distress, Lungs Clear, Normal Breath Sounds, No Accessory Muscle Use. No: Decreased Breath Sounds, Crackles, Rhonchi, Wheezing, Stridor, Prolonged Expiration Cardiovascular: Normal Peripheral Pulses, No Edema, No Gallop, No JVD, No Murmur , No Rub, Tachycardia (regular) Peripheral Pulses: 4+: Radial (L), Radial (R) GI/Abdominal: Normal Bowel Sounds, Soft, Non-Tender, No Organomegaly, No Distention, No Abnormal Bruit, No Mass Back Exam: Normal Inspection, Full Range of Motion, NT Extremities: Normal Inspection, Normal Range of Motion, No Pedal Edema, Normal Capillary Refill Neurological: Alert, Oriented, CN II-XII Intact, Normal Cognition, Other ( Weakness to the bilateral upper and lower extremities, however, it is felt that her weakness is factitious or hysterical, not metabolic, as her weakness was pulsatile, and she used no accessory muscles to try to overcome a genuine weakness. Additionally, after instructed the patient that it was important that she cooperate with the exam, her lower extremity strength immediately improved.) Psychiatric: Anxious Skin Exam: Warm, Dry, Intact, Normal Color, No Rash Lymphatic: No Adenopathy - Patient Data Result Diagrams: 04/18/19 00:15 04/18/19 00:15 Sepsis Event Note - Evaluation Sepsis Screening Result: Possible Sepsis Risk - Focused Exam Vital Signs: Vital Signs Pulse Ox 04/18/19 05:35 97 04/18/19 04:05 94 L Date Exam was Performed: 04/18/19 Time Exam was Performed: 17:51 - Problem List (1) Headache SNOMED Code(s): 61548229 ICD Code: R51 - HEADACHE Status: Acute Current Visit: Yes (2) Hypomagnesemia SNOMED Code(s): 544653354 ICD Code: E83.42 - HYPOMAGNESEMIA Status: Acute Current Visit: Yes (3) Nausea and vomiting SNOMED Code(s): 76384305 ICD Code: R11.2 - NAUSEA WITH VOMITING, UNSPECIFIED Status: Acute Current Visit: Yes (4) Right middle lobe pneumonia SNOMED Code(s): 645153477 ICD Code: J18.9 - PNEUMONIA, UNSPECIFIED ORGANISM Status: Acute Current Visit: Yes (5) Abdominal pain SNOMED Code(s): 77628034 ICD Code: R10.9 - UNSPECIFIED ABDOMINAL PAIN Status: Acute Current Visit : No (6) Tachycardia SNOMED Code(s): 7574098 ICD Code: R00.0 - TACHYCARDIA, UNSPECIFIED Status: Acute Current Visit: Yes (7) Fever SNOMED Code(s): 352827250 ICD Code: R50.9 - FEVER, UNSPECIFIED Status: Acute Current Visit: Yes (8) Hypertension SNOMED Code(s): 55510135 ICD Code: I10 - ESSENTIAL (PRIMARY) HYPERTENSION Status: Acute Current Visit: Yes (9) Dyslipidemia SNOMED Code(s): 928029628 ICD Code: E78.5 - HYPERLIPIDEMIA, UNSPECIFIED Status: Acute Current Visit : Yes (10) GERD (gastroesophageal reflux disease) SNOMED Code(s): 575135957 ICD Code: K21.9 - GASTRO-ESOPHAGEAL REFLUX DISEASE WITHOUT ESOPHAGITIS Status: Acute Current Visit: Yes Problem List Initiated/Reviewed/Updated: Yes Assessment/Plan Comment:: Right middle lobe pneumonia Tachycardia Fever Headache Nausea and vomiting Tachycardia Hypomagnesemia CT of the head was negative CXR with middle lobe infiltrate, not seen on the chest x-ray from 04/16/2019. Neutrophil predominance without leukocytosis Low magnesium likely from vomiting Lactic acid is negative Was in [place] from 03/07/2019 through 03/18/2019 + vaccinated for yellow fever -- > unlikely due to history of illness Concern for malaria due to patient not completing prophylaxis after returning from her trip-- > case discussed with ID who recommended smear be evaluated RADHA -- > Smear was sent to [facility] to confirm presence of parasites. ID also recommended r/o typhoid and blood cultures, HIV as well as crypto pneumonia and Tb pneumonia-- > also recommending admission until negative studies + change coverage to azithro + ceftriaxone - F/u results - Culture if febrile - Continue ATB regimen Hypertension BP on admission 143/68 Unknown home medications PLAN - Reconcile home meds once available Dyslipidemia No acute issues PLAN - Reconcile home meds once available PROPHYLAXIS DVT- Lovenox GI- not indicated CODE STATUS: FULL CODE DISPOSITION: Patient will be admitted to complete work up of febrile illness. - Mortality Measure Prognosis:: Good
[2019-04-18] MEDS ORDERED: Morphine 2 MG/ML Syringe IVPUSH PRN (14:17)
[2019-04-18] MEDS ORDERED: Ondansetron 4 MG/2 ML SDV IV PRN (14:17)
[2019-04-18] MEDS ORDERED: Ondansetron 4 MG Tab.DIS PO PRN (14:17)
[2019-04-18] MEDS: Ampicillin/Sulbactam Na 3 GM in Sodium Chloride 0.9% 100 ML IV SCH ×2 (15:55→22:17)
[2019-04-18] MEDS: Lactated Ringers 1,000 ML IV SCH ×2 (16:40→22:18)
[2019-04-18] MEDS: Acetaminophen 325 MG Tab PO PRN (17:41)
[2019-04-18] MEDS: Ketorolac 30 MG/ML SDV IV PRN (18:57)
[2019-04-18] MEDS: Azithromycin 500 MG in Sodium Chloride 0.9% 250 ML IV SCH (22:17)
[2019-04-19] MEDS: Ketorolac 30 MG/ML SDV IV PRN ×2 (02:33→10:55)
[2019-04-19] MEDS: Ampicillin/Sulbactam Na 3 GM in Sodium Chloride 0.9% 100 ML IV SCH ×4 (05:10→21:28)
[2019-04-19] MEDS: Lactated Ringers 1,000 ML IV SCH ×2 (05:10→10:14)
[2019-04-19] MEDS: Oseltamivir 75 MG Cap PO SCH ×2 (08:20→20:17)
[2019-04-19] MEDS: Acetaminophen 325 MG Tab PO PRN (08:20)
[2019-04-19] MEDS: Lisinopril 10 MG Tab PO SCH (08:21)
[2019-04-19] MEDS: Ondansetron 4 MG Tab.DIS PO PRN (08:21)
[2019-04-19] MEDS: Hydrochlorothiazide 12.5 MG Cap PO SCH (08:24)
[2019-04-19] MEDS: Simvastatin 20 MG Tab PO SCH (08:24)
[2019-04-19] MEDS: Enoxaparin 40 MG/0.4 ML Syringe SUBCUT SCH (08:25)
[2019-04-19] MEDS: Sodium Chloride 0.9% Inhalation Soln 3 ML Neb INH PRN ×2 (08:30→09:51)
--- NOTE | 2019-04-19 12:28 | PCM.PN ---
- General Info Date of Service: 04/19/19 Subjective Update: Feeling ok Slept ok Last BM was 2 days ago - Patient Data Vitals - Most Recent: Last Vital Signs Temp 98.2 F 04/19/19 08:23 Pulse 85 04/19/19 08:23 Resp 16 04/19/19 08:23 BP 120/66 04/19/19 08:23 Pulse Ox 97 04/19/19 09:51 Weight - Most Recent: 88.995 kg - Exam General: Alert, Oriented, Cooperative, No Acute Distress HEENT: Pupils Equal, Pupils Reactive, Mucous Membr. Moist/[place] Neck: Supple, Trachea Midline, No JVD, No Thyromegaly, +2 Carotid Pulse wo Bruit. No: Lymphadenopathy Lungs: Normal Respiratory Effort, Crackles. No: Rales, Rhonchi, Rub, Wheezing Cardiovascular: Regular Rate, Regular Rhythm. No: Murmurs, Gallops, Rubs GI/Abdominal Exam: Normal Bowel Sounds, Soft, Non-Tender, No Distention Back Exam: Normal Inspection Extremities: Normal Inspection Sepsis Event Note - Evaluation Sepsis Screening Result: No Definite Risk - Focused Exam Vital Signs: Vital Signs Temp Pulse Resp BP Pulse Ox Pulse Ox 04/19/19 09:51 97 04/19/19 08:51 95 04/19/19 08:23 98.2 F 85 16 120/66 97 04/19/19 08:21 120/66 04/19/19 02:39 99.3 F 80 12 121/73 95 Date Exam was Performed: 04/19/19 Time Exam was Performed: 12:21 - Problem List & Annotations (1) Headache SNOMED Code(s): 13092546 Code(s): R51 - HEADACHE Status: Acute Current Visit: Yes (2) Hypomagnesemia SNOMED Code(s): 157935848 Code(s): E83.42 - HYPOMAGNESEMIA Status: Acute Current Visit: Yes (3) Nausea and vomiting SNOMED Code(s): 35005231 Code(s): R11.2 - NAUSEA WITH VOMITING, UNSPECIFIED Status: Acute Current Visit: Yes (4) Right middle lobe pneumonia SNOMED Code(s): 078993923 Code(s): J18.9 - PNEUMONIA, UNSPECIFIED ORGANISM Status: Acute Current Visit: Yes (5) Abdominal pain SNOMED Code(s): 74505937 Code(s): R10.9 - UNSPECIFIED ABDOMINAL PAIN Status: Acute Current Visit: No (6) Tachycardia SNOMED Code(s): 2136540 Code(s): R00.0 - TACHYCARDIA, UNSPECIFIED Status: Acute Current Visit: Yes (7) Fever SNOMED Code(s): 389709575 Code(s): R50.9 - FEVER, UNSPECIFIED Status: Acute Current Visit: Yes (8) Hypertension SNOMED Code(s): 06649699 Code(s): I10 - ESSENTIAL (PRIMARY) HYPERTENSION Status: Acute Current Visit: Yes (9) Dyslipidemia SNOMED Code(s): 469724213 Code(s): E78.5 - HYPERLIPIDEMIA, UNSPECIFIED Status: Acute Current Visit : Yes (10) GERD (gastroesophageal reflux disease) SNOMED Code(s): 622040890 Code(s): K21.9 - GASTRO-ESOPHAGEAL REFLUX DISEASE WITHOUT ESOPHAGITIS Status: Acute Current Visit: Yes (11) Leukopenia SNOMED Code(s): 78605899, 962627162 Code(s): D72.819 - DECREASED WHITE BLOOD CELL COUNT, UNSPECIFIED Status: Acute Current Visit: Yes (12) Hypophosphatemia SNOMED Code(s): 4180715 Code(s): E83.39 - OTHER DISORDERS OF PHOSPHORUS METABOLISM Status: Acute Current Visit: Yes - Problem List Review Problem List Initiated/Reviewed/Updated: Yes - Plan Plan:: Right middle lobe pneumonia Tachycardia Fever Headache Nausea and vomiting Tachycardia Hypophosphatemia Leukocytopenia Thrombocytopenia CT of the head was negative CXR with middle lobe infiltrate, not seen on the chest x-ray from 04/16/2019. Low magnesium likely from vomiting Lactic acid is negative Was in [place] from 03/07/2019 through 03/18/2019 + vaccinated for yellow fever -- > unlikely due to history of illness Concern for malaria due to patient not completing prophylaxis after returning from her trip-- > case discussed with ID who recommended smear be evaluated RADHA -- > Smear was sent to [facility] to confirm presence of parasites. ID also recommended r/o typhoid and blood cultures, HIV as well as crypto pneumonia and Tb pneumonia-- > also recommending admission until negative studies + change coverage to azithro + ceftriaxone Negative: Mycoplasma, malaria smear, HIV, legionella, blood cultures x 1 day PLAN - F/u results - Culture if febrile - Continue ATB regimen Hypertension BP trend 99-134/49-84 Unknown home medications PLAN - Reconcile home meds once available Dyslipidemia No acute issues PLAN - Reconcile home meds once available Hypomagnesemia, resolved PROPHYLAXIS DVT- Lovenox GI- not indicated CODE STATUS: FULL CODE DISPOSITION: Patient admitted to complete work up of febrile illness, so far work-up has been negative, pending more results. Will send out for mosquito borne illness
[2019-04-19] MEDS: Acetaminophen/Butalbital/Caffeine 325-50-40 MG Tab PO PRN ×2 (14:25→20:17)
[2019-04-19] MEDS ORDERED: Sodium Chloride 0.9% 10 ML Syringe FLUSH PRN (17:15)
[2019-04-19] MEDS: Azithromycin 500 MG in Sodium Chloride 0.9% 250 ML IV SCH (22:32)
[2019-04-20] MEDS: Ampicillin/Sulbactam Na 3 GM in Sodium Chloride 0.9% 100 ML IV SCH ×4 (03:44→21:00)
[2019-04-20] MEDS: guaiFENesin 100 MG/5 ML Soln 10 ML UD Cup PO PRN ×3 (04:06→14:15)
[2019-04-20] MEDS: Acetaminophen/Butalbital/Caffeine 325-50-40 MG Tab PO PRN ×2 (05:36→15:59)
[2019-04-20] MEDS: Lisinopril 10 MG Tab PO SCH (08:19)
[2019-04-20] MEDS: Simvastatin 20 MG Tab PO SCH (08:21)
[2019-04-20] MEDS: Oseltamivir 75 MG Cap PO SCH ×2 (08:21→20:51)
[2019-04-20] MEDS: Hydrochlorothiazide 12.5 MG Cap PO SCH (08:21)
[2019-04-20] MEDS: Enoxaparin 40 MG/0.4 ML Syringe SUBCUT SCH (08:22)
[2019-04-20] MEDS ORDERED: Potassium Chloride 20 MEQ Tab.ER PO ONE (08:41)
[2019-04-20] MEDS: Benzonatate 100 MG Cap PO PRN ×2 (10:17→20:51)
--- NOTE | 2019-04-20 12:41 | PCM.PN ---
- General Info Date of Service: 04/20/19 Admission Dx/Problem (Free Text): Admission Diagnosis/Problem Admission Diagnosis/Problem Pneumonia Subjective Update: Slept poorly secondary to cough. Nursing reports multiple loose bowel movements. Functional Status: Reports: Pain Controlled - Review of Systems General: Reports: No Symptoms HEENT: Reports: No Symptoms Pulmonary: Reports: Cough. Denies: Shortness of Breath Cardiovascular: Reports: No Symptoms Gastrointestinal: Reports: No Symptoms Musculoskeletal: Reports: No Symptoms - Patient Data Vitals - Most Recent: Last Vital Signs Temp 97.5 F 04/20/19 08:22 Pulse 71 04/20/19 08:22 Resp 16 04/20/19 08:22 BP 115/72 04/20/19 08:22 Pulse Ox 98 04/20/19 08:22 Weight - Most Recent: 189 lb 14.4 oz I&O - Last 24 Hours: Intake & Output 04/19/19 04/20/19 04/20/19 22:59 06:59 14:59 Intake Total 2720 1250 Output Total 1500 1475 Balance 1220 -225 Lab Results Last 24 Hours: Laboratory Results - last 24 hr 04/20/19 04/20/19 Range/Units 05:45 05:45 WBC 3.35 L (3.98-10.04) K/mm3 RBC 3.86 L (3.98-5.22) M/mm3 Hgb 11.8 (11.2-15.7) gm/dl Hct 34.5 (34.1-44.9) % MCV 89.4 (79.4-94.8) fl MCH 30.6 (25.6-32.2) pg MCHC 34.2 (32.2-35.5) g/dl RDW Std Deviation 38.7 (36.4-46.3) fL Plt Count 209 (182-369) K/mm3 MPV 9.6 (9.4-12.3) fl Neut % (Auto) 54.3 (34.0-71.1) % Lymph % (Auto) 28.1 (19.3-51.7) % [place] % (Auto) 13.1 H (4.7-12.5) % Eos % (Auto) 3.3 (0.7-5.8) Baso % (Auto) 0.6 (0.1-1.2) % Neut # (Auto) 1.82 (1.56-6.13) K/mm3 Lymph # (Auto) 0.94 L (1.18-3.74) K/mm3 [place] # (Auto) 0.44 H (0.24-0.36) K/mm3 Eos # (Auto) 0.11 (0.04-0.36) K/mm3 Baso # (Auto) 0.02 (0.01-0.08) K/mm3 Sodium 141 (136-145) mEq/L Potassium 3.4 L (3.5-5.1) mEq/L Chloride 103 (98-107) mEq/L Carbon Dioxide 27 (21-32) mEq/L Anion Gap 14.4 (5-15) BUN 9 (7-18) mg/dL Creatinine 0.8 (0.55-1.02) mg/dL Est Cr Clr Drug Dosing 60.43 mL/min Estimated GFR (MDRD) > 60 (>60) mL/min BUN/Creatinine Ratio 11.3 L (14-18) Glucose 90 (74-106) mg/dL Calcium 9.0 (8.5-10.1) mg/dL Phosphorus 2.7 (2.6-4.7) mg/dL Magnesium 1.9 (1.8-2.4) mg/dl Total Bilirubin 0.6 (0.2-1.0) mg/dL AST 41 H (15-37) U/L ALT 51 (14-59) U/L Alkaline Phosphatase 109 (46-116) U/L Total Protein 6.6 (6.4-8.2) g/dl Albumin 3.0 L (3.4-5.0) g/dl Globulin 3.6 gm/dL Albumin/Globulin Ratio 0.8 L (1-2) [place] Results Last 24 Hours: Microbiology 04/18/19 03:12 Aerobic Blood Culture - Preliminary Blood - Venous NO GROWTH AFTER 2 DAYS Anaerobic Blood Culture - Preliminary NO GROWTH AFTER 2 DAYS 04/18/19 00:15 Aerobic Blood Culture - Preliminary Blood - Venous NO GROWTH AFTER 2 DAYS Anaerobic Blood Culture - Preliminary NO GROWTH AFTER 2 DAYS 04/18/19 00:23 Aerobic Blood Culture - Preliminary Blood - Venous - Lab Draw NO GROWTH AFTER 2 DAYS Anaerobic Blood Culture - Preliminary NO GROWTH AFTER 2 DAYS Med Orders - Current: Current Medications Acetaminophen (Tylenol) 650 mg PO Q4H PRN PRN Reason: Fever Last Admin: 04/19/19 08:20 Dose: 650 mg Acetaminophen/Butalbital/Caffeine (Fioricet 325-50-40 Mg) 2 tab PO Q6H PRN PRN Reason: Headache Last Admin: 04/20/19 05:36 Dose: 2 tab Benzonatate (Tessalon Perles) 100 mg PO QID PRN PRN Reason: Cough Last Admin: 04/20/19 10:17 Dose: 100 mg Enoxaparin Sodium (Lovenox) [address] [facility] Last Admin: 04/20/19 08:22 Dose: 40 mg Guaifenesin (Robitussin) 200 mg PO Q4H PRN PRN Reason: Cough Last Admin: 04/20/19 10:17 Dose: 200 mg Guaifenesin/Codeine Phosphate (Robitussin Ac) 5 ml PO Q4H PRN PRN Reason: Cough Hydrochlorothiazide (Hydrochlorothiazide) 12.[address] [facility] Last Admin: 04/20/19 08:21 Dose: 12.5 mg Ampicillin Sodium/Sulbactam (Sodium 3 gm/ Sodium Chloride) 100 mls @ 200 mls/ hr IV Q6H [facility] Last Admin: 04/20/19 10:17 Dose: 200 mls/hr Azithromycin 500 mg/ Sodium (Chloride) 250 mls @ 250 mls/hr IV Q24H [facility] Last Admin: 04/19/19 22:32 Dose: 250 mls/hr Ketorolac Tromethamine (Toradol) 30 mg IV Q8H PRN PRN Reason: Pain (moderate 4-6) Last Admin: 04/19/19 10:55 Dose: 30 mg Lisinopril (Prinivil) [address] [facility] Last Admin: 04/20/19 08:19 Dose: 10 mg Ondansetron HCl (Zofran) 4 mg IV Q6H PRN PRN Reason: Nausea/Vomiting Ondansetron HCl (Zofran Odt) 4 mg PO Q6H PRN PRN Reason: nausea, able to take PO Oseltamivir Phosphate (Tamiflu) [address] [facility] Last Admin: 04/20/19 08:21 Dose: 75 mg Simvastatin (Zocor) [address] [facility] Last Admin: 04/20/19 08:21 Dose: 20 mg Sodium Chloride (Sodium Chloride 0.9%) 3 ml INH ASDIRECTED PRN PRN Reason: SPUTUM INDUCTION Last Admin: 04/19/19 09:51 Dose: 3 ml Sodium Chloride (Saline Flush) 10 ml FLUSH ASDIRECTED PRN PRN Reason: Keep Vein Open Discontinued Medications Acetaminophen/Butalbital/Caffeine (Fioricet 325-50-40 Mg) 1 tab PO Q6H PRN PRN Reason: Pain Last Admin: 04/18/19 11:49 Dose: 1 tab Amoxicillin/Clavulanate Potassium (Augmentin 875 Mg/125 Mg) 1 tab PO ONETIME STA Stop: 04/18/19 01:29 Last Admin: 04/18/19 01:57 Dose: 1 tab Azithromycin (Zithromax) 500 mg PO ONETIME STA Stop: 04/18/19 01:31 Last Admin: 04/18/19 01:57 Dose: 500 mg Hydromorphone HCl (Dilaudid) 0.5 mg IVPUSH ONETIME ONE Stop: 04/17/19 23:58 Last Admin: 04/18/19 00:22 Dose: 0.5 mg Hydromorphone HCl (Dilaudid) 0.5 mg IVPUSH ONETIME ONE Stop: 04/18/19 05:10 Last Admin: 04/18/19 05:21 Dose: 0.5 mg Lactated Ringer's (Ringers, Lactated) 1,000 mls @ 999 mls/hr IV .BOLUS ONE Stop: 04/18/19 00:56 Last Admin: 04/18/19 00:22 Dose: 999 mls/hr Magnesium Sulfate 2 gm/ Premix 50 mls @ 50 mls/hr IV ONETIME ONE Stop: 04/18/19 02:27 Last Admin: 04/18/19 01:55 Dose: 50 mls/hr Lactated Ringer's (Ringers, Lactated) 1,000 mls @ 200 mls/hr IV ASDIRECTED NICHELLE Last Admin: 04/19/19 10:14 Dose: 200 mls/hr Ketorolac Tromethamine (Toradol) 30 mg IVPUSH ONETIME STA Stop: 04/17/19 23:58 Last Admin: 04/18/19 00:22 Dose: 30 mg Morphine Sulfate (Morphine) 1 mg IVPUSH Q2H PRN PRN Reason: Pain (severe 7-10) Stop: 04/19/19 14:23 Ondansetron HCl (Zofran) 4 mg IVPUSH ONETIME ONE Stop: 04/17/19 23:58 Last Admin: 04/18/19 00:21 Dose: 4 mg Ondansetron HCl (Zofran) 4 mg IVPUSH ONETIME ONE Stop: 04/18/19 05:10 Last Admin: 04/18/19 05:17 Dose: 4 mg Ondansetron HCl (Zofran Odt) 4 mg PO Q6H PRN PRN Reason: Nausea/Vomiting Last Admin: 04/19/19 08:21 Dose: 4 mg Potassium Chloride (Klor-Con M20) 20 meq PO ONETIME ONE Stop: 04/20/19 08:42 Last Admin: 04/20/19 10:17 Dose: 20 meq Sodium Chloride (Sodium Chloride 3%) 3 ml NEB STAT NICHELLE Last Admin: 04/18/19 04:04 Dose: 3 ml Sodium Chloride (Sodium Chloride 3%) 4 ml NEB Q6HRRT ONE Stop: 04/18/19 05:16 Last Admin: 04/18/19 05:34 Dose: 4 ml - Exam Quality Assessment: No: Supplemental Oxygen General: Alert, Oriented HEENT: Pupils Equal, Pupils Reactive, EOMI, Mucous Membr. Moist/[place] Neck: Supple Lungs: Clear to Auscultation, Normal Respiratory Effort Cardiovascular: Regular Rate, Regular Rhythm GI/Abdominal Exam: Normal Bowel Sounds, Soft, Non-Tender Extremities: Normal Inspection, No Pedal Edema Sepsis Event Note - Evaluation Sepsis Screening Result: No Definite Risk - Focused Exam Vital Signs: Vital Signs Temp Pulse Resp BP BP Pulse Ox 04/20/19 08:22 97.5 F 71 16 115/72 98 04/20/19 08:19 115/72 04/20/19 03:43 99.0 F 74 15 130/89 95 Date Exam was Performed: 04/20/19 Time Exam was Performed: 12:38 - Problem List Review Problem List Initiated/Reviewed/Updated: Yes - My Orders Last 24 Hours: My Active Orders 04/20/19 08:41 Benzonatate [Tessalon Perles] 100 mg PO QID PRN 04/20/19 11:48 Codeine/guaiFENesin [Robitussin AC] 5 ml PO Q4H PRN - Plan Plan:: Right middle lobe pneumonia Tachycardia Fever Headache Nausea and vomiting Tachycardia Hypophosphatemia Leukocytopenia Thrombocytopenia CT of the head was negative CXR with middle lobe infiltrate, not seen on the chest x-ray from 04/16/2019. Low magnesium likely from vomiting Lactic acid is negative Was in [place] from 03/07/2019 through 03/18/2019 + vaccinated for yellow fever -- > unlikely due to history of illness Concern for malaria due to patient not completing prophylaxis after returning from her trip-- > case discussed with ID who recommended smear be evaluated RADHA -- > Smear was sent to [facility] to confirm presence of parasites. ID also recommended r/o typhoid and blood cultures, HIV as well as crypto pneumonia and Tb pneumonia-- > also recommending admission until negative studies + change coverage to azithro + ceftriaxone Negative: Mycoplasma, malaria smear, HIV, legionella, blood cultures x 1 day PLAN - F/u results -discharge home pending results from above. - Culture if febrile -3 sputum for AFB sent. Waiting results. Hypertension BP trend 99-134/49-84 Unknown home medications PLAN - Reconcile home meds once available Dyslipidemia No acute issues PLAN - Reconcile home meds once available Hypomagnesemia, resolved PROPHYLAXIS DVT- Lovenox GI- not indicated CODE STATUS: FULL CODE DISPOSITION: Discharge likely in 2 days pending results.
[2019-04-20] MEDS: Ketorolac 30 MG/ML SDV IV PRN (12:56)
[2019-04-20] MEDS: Codeine/guaiFENesin 100-10 MG/5 ML Syrup 5 ML Cup PO PRN (19:31)
[2019-04-20] MEDS: Azithromycin 500 MG in Sodium Chloride 0.9% 250 ML IV SCH (22:30)
[2019-04-21] MEDS: Codeine/guaiFENesin 100-10 MG/5 ML Syrup 5 ML Cup PO PRN ×4 (00:30→21:10)
[2019-04-21] MEDS: Ampicillin/Sulbactam Na 3 GM in Sodium Chloride 0.9% 100 ML IV SCH ×2 (04:17→09:17)
[2019-04-21] MEDS: Acetaminophen/Butalbital/Caffeine 325-50-40 MG Tab PO PRN (06:23)
[2019-04-21] MEDS: Simvastatin 20 MG Tab PO SCH (09:11)
[2019-04-21] MEDS: Lisinopril 10 MG Tab PO SCH (09:12)
[2019-04-21] MEDS: Oseltamivir 75 MG Cap PO SCH ×2 (09:13→21:05)
[2019-04-21] MEDS: Hydrochlorothiazide 12.5 MG Cap PO SCH (09:14)
[2019-04-21] MEDS: Enoxaparin 40 MG/0.4 ML Syringe SUBCUT SCH (09:15)
[2019-04-21] MEDS: Benzonatate 100 MG Cap PO PRN ×2 (09:30→21:10)
--- NOTE | 2019-04-21 09:30 | PCM.PN ---
- General Info Date of Service: 04/21/19 Admission Dx/Problem (Free Text): Admission Diagnosis/Problem Admission Diagnosis/Problem Pneumonia Subjective Update: Afebrile, sleeping well. No complaints. She continues to have a dry hacking cough. Functional Status: Reports: Pain Controlled - Review of Systems General: Reports: No Symptoms HEENT: Reports: No Symptoms Pulmonary: Reports: Cough. Denies: Shortness of Breath Cardiovascular: Reports: No Symptoms Gastrointestinal: Reports: No Symptoms - Patient Data Vitals - Most Recent: Last Vital Signs Temp 98.1 F 04/21/19 04:20 Pulse 75 04/21/19 04:20 Resp 14 04/21/19 04:20 BP 138/78 04/21/19 09:12 Pulse Ox 95 04/21/19 04:20 Weight - Most Recent: 190 lb 3.2 oz I&O - Last 24 Hours: Intake & Output 04/20/19 04/21/19 04/21/19 22:59 06:59 14:59 Intake Total 1360 700 Output Total 5 1050 Balance 1355 -350 [place] Results Last 24 Hours: Microbiology 04/18/19 03:12 Aerobic Blood Culture - Preliminary Blood - Venous NO GROWTH AFTER 3 DAYS Anaerobic Blood Culture - Preliminary NO GROWTH AFTER 3 DAYS 04/18/19 00:15 Aerobic Blood Culture - Preliminary Blood - Venous NO GROWTH AFTER 3 DAYS Anaerobic Blood Culture - Preliminary NO GROWTH AFTER 3 DAYS 04/18/19 00:23 Aerobic Blood Culture - Preliminary Blood - Venous - Lab Draw NO GROWTH AFTER 3 DAYS Anaerobic Blood Culture - Preliminary NO GROWTH AFTER 3 DAYS Med Orders - Current: Current Medications Acetaminophen (Tylenol) 650 mg PO Q4H PRN PRN Reason: Fever Last Admin: 04/19/19 08:20 Dose: 650 mg Acetaminophen/Butalbital/Caffeine (Fioricet 325-50-40 Mg) 2 tab PO Q6H PRN PRN Reason: Headache Last Admin: 04/21/19 06:23 Dose: 2 tab Benzonatate (Tessalon Perles) 100 mg PO QID PRN PRN Reason: Cough Last Admin: 04/20/19 20:51 Dose: 100 mg Enoxaparin Sodium (Lovenox) 40 mg SUBCUT DAILY [facility] Last Admin: 04/21/19 09:15 Dose: 40 mg Guaifenesin (Robitussin) 200 mg PO Q4H PRN PRN Reason: Cough Last Admin: 04/20/19 14:15 Dose: 200 mg Guaifenesin/Codeine Phosphate (Robitussin Ac) 5 ml PO Q4H PRN PRN Reason: Cough Last Admin: 04/21/19 06:23 Dose: 5 ml Hydrochlorothiazide (Hydrochlorothiazide) 12.5 mg PO DAILY [facility] Last Admin: 04/21/19 09:14 Dose: 12.5 mg Ampicillin Sodium/Sulbactam (Sodium 3 gm/ Sodium Chloride) 100 mls @ 200 mls/ hr IV Q6H [facility] Last Admin: 04/21/19 09:17 Dose: 200 mls/hr Azithromycin 500 mg/ Sodium (Chloride) 250 mls @ 250 mls/hr IV Q24H [facility] Last Admin: 04/20/19 22:30 Dose: 250 mls/hr Ketorolac Tromethamine (Toradol) 30 mg IV Q8H PRN PRN Reason: Pain (moderate 4-6) Last Admin: 04/20/19 12:56 Dose: 30 mg Lisinopril (Prinivil) 10 mg PO DAILY [facility] Last Admin: 04/21/19 09:12 Dose: 10 mg Ondansetron HCl (Zofran) 4 mg IV Q6H PRN PRN Reason: Nausea/Vomiting Ondansetron HCl (Zofran Odt) 4 mg PO Q6H PRN PRN Reason: nausea, able to take PO Oseltamivir Phosphate (Tamiflu) 75 mg PO BID [facility] Last Admin: 04/21/19 09:13 Dose: 75 mg Simvastatin (Zocor) 20 mg PO DAILY [facility] Last Admin: 04/21/19 09:11 Dose: 20 mg Sodium Chloride (Sodium Chloride 0.9%) 3 ml INH ASDIRECTED PRN PRN Reason: SPUTUM INDUCTION Last Admin: 04/19/19 09:51 Dose: 3 ml Sodium Chloride (Saline Flush) 10 ml FLUSH ASDIRECTED PRN PRN Reason: Keep Vein Open Discontinued Medications Acetaminophen/Butalbital/Caffeine (Fioricet 325-50-40 Mg) 1 tab PO Q6H PRN PRN Reason: Pain Last Admin: 04/18/19 11:49 Dose: 1 tab Amoxicillin/Clavulanate Potassium (Augmentin 875 Mg/125 Mg) 1 tab PO ONETIME STA Stop: 04/18/19 01:29 Last Admin: 04/18/19 01:57 Dose: 1 tab Azithromycin (Zithromax) 500 mg PO ONETIME STA Stop: 04/18/19 01:31 Last Admin: 04/18/19 01:57 Dose: 500 mg Hydromorphone HCl (Dilaudid) 0.5 mg IVPUSH ONETIME ONE Stop: 04/17/19 23:58 Last Admin: 04/18/19 00:22 Dose: 0.5 mg Hydromorphone HCl (Dilaudid) 0.5 mg IVPUSH ONETIME ONE Stop: 04/18/19 05:10 Last Admin: 04/18/19 05:21 Dose: 0.5 mg Lactated Ringer's (Ringers, Lactated) 1,000 mls @ 999 mls/hr IV .BOLUS ONE Stop: 04/18/19 00:56 Last Admin: 04/18/19 00:22 Dose: 999 mls/hr Magnesium Sulfate 2 gm/ Premix 50 mls @ 50 mls/hr IV ONETIME ONE Stop: 04/18/19 02:27 Last Admin: 04/18/19 01:55 Dose: 50 mls/hr Lactated Ringer's (Ringers, Lactated) 1,000 mls @ 200 mls/hr IV ASDIRECTED [facility] Last Admin: 04/19/19 10:14 Dose: 200 mls/hr Ketorolac Tromethamine (Toradol) 30 mg IVPUSH ONETIME STA Stop: 04/17/19 23:58 Last Admin: 04/18/19 00:22 Dose: 30 mg Morphine Sulfate (Morphine) 1 mg IVPUSH Q2H PRN PRN Reason: Pain (severe 7-10) Stop: 04/19/19 14:23 Ondansetron HCl (Zofran) 4 mg IVPUSH ONETIME ONE Stop: 04/17/19 23:58 Last Admin: 04/18/19 00:21 Dose: 4 mg Ondansetron HCl (Zofran) 4 mg IVPUSH ONETIME ONE Stop: 04/18/19 05:10 Last Admin: 04/18/19 05:17 Dose: 4 mg Ondansetron HCl (Zofran Odt) 4 mg PO Q6H PRN PRN Reason: Nausea/Vomiting Last Admin: 04/19/19 08:21 Dose: 4 mg Potassium Chloride (Klor-Con M20) 20 meq PO ONETIME ONE Stop: 04/20/19 08:42 Last Admin: 04/20/19 10:17 Dose: 20 meq Sodium Chloride (Sodium Chloride 3%) 3 ml NEB STAT [facility] Last Admin: 04/18/19 04:04 Dose: 3 ml Sodium Chloride (Sodium Chloride 3%) 4 ml NEB Q6HRRT ONE Stop: 04/18/19 05:16 Last Admin: 04/18/19 05:34 Dose: 4 ml - Exam Quality Assessment: No: Supplemental Oxygen General: Alert, Oriented HEENT: Pupils Equal, EOMI, Mucous Membr. Moist/[place] Neck: Supple Lungs: Clear to Auscultation, Normal Respiratory Effort Cardiovascular: Regular Rate, Regular Rhythm GI/Abdominal Exam: Normal Bowel Sounds, Soft, Non-Tender, No Organomegaly, No Distention, No Abnormal Bruit, No Mass Extremities: Normal Inspection, Normal Range of Motion, Non-Tender, No Pedal Edema, Normal Capillary Refill Skin: Warm, Dry, Intact Psy/Mental Status: Alert, Normal Affect, Normal Mood Sepsis Event Note - Evaluation Sepsis Screening Result: No Definite Risk - Focused Exam Vital Signs: Vital Signs Temp Pulse Resp BP Pulse Ox 04/21/19 09:12 138/78 04/21/19 04:20 98.1 F 75 14 105/56 L 95 Date Exam was Performed: 04/21/19 Time Exam was Performed: 15:12 - Problem List Review Problem List Initiated/Reviewed/Updated: Yes - My Orders Last 24 Hours: My Active Orders 04/20/19 08:41 Benzonatate [Tessalon Perles] 100 mg PO QID PRN 04/20/19 11:48 Codeine/guaiFENesin [Robitussin AC] 5 ml PO Q4H PRN 04/21/19 09:19 BASIC METABOLIC PANEL,BMP [CHEM] Routine - Plan Plan:: Right middle lobe pneumonia Tachycardia Fever Headache Nausea and vomiting Tachycardia Hypophosphatemia Leukocytopenia Thrombocytopenia CT of the head was negative CXR with middle lobe infiltrate, not seen on the chest x-ray from 04/16/2019. Low magnesium likely from vomiting Lactic acid is negative Was in [place] from 03/07/2019 through 03/18/2019 + vaccinated for yellow fever -- > unlikely due to history of illness Concern for malaria due to patient not completing prophylaxis after returning from her trip-- > case discussed with ID who recommended smear be evaluated RADHA -- > Smear was sent to [facility] to confirm presence of parasites. ID also recommended r/o typhoid and blood cultures, HIV as well as crypto pneumonia and Tb pneumonia-- > also recommending admission until negative studies + change coverage to azithro + ceftriaxone Negative: Mycoplasma, malaria smear, HIV, legionella, blood cultures x 1 day PLAN - F/u results -discharge home pending results from above. - Culture if febrile -3 sputum for AFB sent. Waiting results. Hypernatremia Patient has had a increase in her sodium to 148. No good reason. Will repeat tomorrow. Encourage p.o. intake. Hypertension BP trend 99-134/49-84 Unknown home medications PLAN - Reconcile home meds once available Dyslipidemia No acute issues PLAN - Reconcile home meds once available Hypomagnesemia, resolved PROPHYLAXIS DVT- Lovenox GI- not indicated CODE STATUS: FULL CODE DISPOSITION: Discharge likely in 2 days pending results.
[2019-04-21] MEDS: Amoxicillin/Clavulanate K 875-125 MG Tab PO SCH (17:45)
[2019-04-21] MEDS ORDERED: Azithromycin 250 MG Tab PO SCH (22:00)
[2019-04-22] MEDS: Acetaminophen/Butalbital/Caffeine 325-50-40 MG Tab PO PRN (02:30)
[2019-04-22] MEDS: Amoxicillin/Clavulanate K 875-125 MG Tab PO SCH (06:16)
[2019-04-22] MEDS: Hydrochlorothiazide 12.5 MG Cap PO SCH (08:16)
[2019-04-22] MEDS: Oseltamivir 75 MG Cap PO SCH (08:16)
[2019-04-22] MEDS: Lisinopril 10 MG Tab PO SCH (08:17)
[2019-04-22] MEDS: Simvastatin 20 MG Tab PO SCH (08:17)
[2019-04-22] MEDS: Enoxaparin 40 MG/0.4 ML Syringe SUBCUT SCH (08:17)
[2019-04-22 08:18] VITALS: BP 112/64
--- NOTE | 2019-04-22 09:48 | PCM.DCSUM1 ---
Discharge Summary - Hospital Course HPI Initial Comments: This is a 49-year-old woman with a past medical history of hypertension, dyslipidemia, possible asthma, gastritis, GERD, and morbid obesity complaining of continued fever, up to 104.4, as measured by an electronic oral thermometer , just prior to coming to the ED, along with vomiting, including vomiting some blood, and a headache since this morning. She states that she developed a cough shortly after leaving the ED on 04/16/2019. She denies having sinus congestion, rhinorrhea, or a sore throat. Of note she was seen in this ED on 04/16/2019, with a complaint at that time of a fever up to 103, nausea, vomiting, slight cough, and body aches. She denied having a sore throat or ear pain. No chest pain or dyspnea. No abdominal pain or urinary symptoms. No watery diarrhea. She was found to have a temperature of 100.6. CBC found her WBC count to be elevated at 11.01, but was otherwise unremarkable. Her CMP was unremarkable. Her CRP was mildly elevated at 3.0. Chest x-ray was unremarkable, and an influenza swab returned negative. Nevertheless, the patient was clinically felt to have influenza, and was prescribed Tamiflu. She states that she has been taking the Tamiflu as prescribed, and Tylenol, with her most recent dose at 14:00 this afternoon. She does not take ibuprofen, as it causes her to have stomach cramps. Diagnosis: Stroke: No - Discharge Data Discharge Date: 04/22/19 Discharge Disposition: Home, Self-Care 01 Condition: Good - Referral to Home Health Primary Care Physician: PCP None - Patient Summary/Data Labs Pending at D/C: Cryptococcal antibodies, AFP cultures, Zika, dengue, QuantiFERON Hospital Course: Right middle lobe pneumonia Tachycardia Fever Headache Nausea and vomiting Tachycardia Hypophosphatemia Leukocytopenia Thrombocytopenia CT of the head was negative CXR with middle lobe infiltrate, not seen on the chest x-ray from 04/16/2019. Low magnesium likely from vomiting Lactic acid is negative Was in [place] from 03/07/2019 through 03/18/2019 + vaccinated for yellow fever -- > unlikely due to history of illness Concern for malaria due to patient not completing prophylaxis after returning from her trip-- > case discussed with ID who recommended smear be evaluated RADHA -- > Smear was sent to [facility] to confirm presence of parasites. ID also recommended r/o typhoid and blood cultures, HIV as well as crypto pneumonia and Tb pneumonia-- > also recommending admission until negative studies + change coverage to azithro + ceftriaxone Negative: Mycoplasma, malaria smear, HIV, legionella, pneumococcal antigen, blood cultures x 4 days PLAN - F/u results -as outpatient -3 sputum for AFB smears negative, culture still pending. Hypertension BP trend 99-134/49-84 Dyslipidemia No acute issues Hypomagnesemia, resolved PROPHYLAXIS DVT- Lovenox GI- not indicated CODE STATUS: FULL CODE - Patient Instructions Diet: Usual Diet as Tolerated Activity: As Tolerated Driving: May Drive Today Showering/Bathing: May Shower Other/Special Instructions: Self isoloate yourself to avoid possible spread of airborne disease to another person. This means you should decrease exposure to respiratory secretions to those around you. Follow up with with your PCP next week. You will get a phone call about your outstanding labs when they are resulted. Finish prescribe antibiotics. - Discharge Plan *PRESCRIPTION DRUG MONITORING PROGRAM REVIEWED*: Not Applicable *COPY OF PRESCRIPTION DRUG MONITORING REPORT IN PATIENT MAGGIE: Not Applicable Prescriptions/Med Rec: Amoxicillin/Clavulanate K [Augmentin 875-125 MG] 1 tab PO Q12H #7 tablet Codeine/guaiFENesin [Robitussin AC] 5 ml PO Q4H PRN #120 ml PRN Reason: Cough Home Medications: Home Meds Albuterol Sulfate [Proair Hfa] 2 puff INH BID PRN 04/20/15 [History] Lisinopril/Hydrochlorothiazide [Zestoretic 10-12.5 mg Tablet] 1 tab PO DAILY [History] Omeprazole [Prilosec] 1 tab PO DAILY 04/20/15 [History] atorvaSTATin [Lipitor] 1 tab PO DAILY 04/20/15 [History] Hydrocodone/Acetaminophen [Hydrocodon-Acetaminophn 10-325] 1 - 2 tab PO Q6H PRN 01/23/16 [History] Ondansetron [Zofran ODT] 4 mg PO Q4H PRN 01/23/16 [History] Amoxicillin/Clavulanate K [Augmentin 875-125 MG] 1 tab PO Q12H #7 tablet [Rx] Codeine/guaiFENesin [Robitussin AC] 5 ml PO Q4H PRN #120 ml 04/22/19 [Rx] Patient Handouts: Fever, Adult, Sepsis, Adult, Community-Acquired Pneumonia, Adult, [id number] Referrals: Brionna Mak, DIGITIZER [Ordering Only Provider] - 04/29/19 10:30 am (You will be seeing as Brionna is out of the clinic.) - Discharge Summary/Plan Comment DC Time >30 min.: Yes Discharge Summary/Plan Comment: Self-isolation until all labs return. Finish antibiotics. Follow-up with primary care provider next week. - General Info Date of Service: 04/22/19 Admission Dx/Problem (Free Text: Admission Diagnosis/Problem Admission Diagnosis/Problem Pneumonia Subjective Update: Patient is doing well without any complaints. She denies any fever or chills. Functional Status: Reports: Pain Controlled - Review of Systems General: Reports: No Symptoms HEENT: Reports: No Symptoms Pulmonary: Reports: No Symptoms Cardiovascular: Reports: No Symptoms Gastrointestinal: Reports: No Symptoms Musculoskeletal: Reports: No Symptoms Neurological: Reports: No Symptoms - Patient Data Vitals - Most Recent: Last Vital Signs Temp 98.1 F 04/22/19 02:32 Pulse 71 04/22/19 02:32 Resp 16 04/22/19 02:32 BP 112/64 04/22/19 08:17 Pulse Ox 94 L 04/22/19 02:32 Weight - Most Recent: 189 lb 14.4 oz I&O - Last 24 hours: Intake & Output 04/21/19 04/22/19 04/22/19 22:59 06:59 14:59 Intake Total 900 450 Output Total 1200 400 Balance -300 50 Lab Results - Last 24 hrs: Laboratory Results - last 24 hr 04/18/19 04/19/19 04/21/19 Range/Units 03:12 08:41 09:20 WBC (3.98-10.04) K/mm3 RBC (3.98-5.22) M/mm3 Hgb (11.2-15.7) gm/dl Hct (34.1-44.9) % MCV (79.4-94.8) fl MCH (25.6-32.2) pg MCHC (32.2-35.5) g/dl RDW Std Deviation (36.4-46.3) fL Plt Count (182-369) K/mm3 MPV (9.4-12.3) fl Neut % (Auto) (34.0-71.1) % Lymph % (Auto) (19.3-51.7) % [place] % (Auto) (4.7-12.5) % Eos % (Auto) (0.7-5.8) Baso % (Auto) (0.1-1.2) % Neut # (Auto) (1.56-6.13) K/mm3 Lymph # (Auto) (1.18-3.74) K/mm3 [place] # (Auto) (0.24-0.36) K/mm3 Eos # (Auto) (0.04-0.36) K/mm3 Baso # (Auto) (0.01-0.08) K/mm3 Manual Slide Review Sodium 148 H (136-145) mEq/L Potassium 3.7 (3.5-5.1) mEq/L Chloride 109 H (98-107) mEq/L Carbon Dioxide 26 (21-32) mEq/L Anion Gap 16.7 H (5-15) BUN 11 (7-18) mg/dL Creatinine 0.7 (0.55-1.02) mg/dL Est Cr Clr Drug Dosing 69.06 mL/min Estimated GFR (MDRD) > 60 (>60) mL/min BUN/Creatinine Ratio 15.7 (14-18) Glucose 83 (74-106) mg/dL Calcium 8.9 (8.5-10.1) mg/dL Magnesium (1.8-2.4) mg/dl Total Bilirubin (0.2-1.0) mg/dL AST (15-37) U/L ALT (14-59) U/L Alkaline Phosphatase (46-116) U/L Total Protein (6.4-8.2) g/dl Albumin (3.4-5.0) g/dl Globulin gm/dL Albumin/Globulin Ratio (1-2) Procalcitonin 0.56 H (<0.10) ng/mL Adenovirus (PCR) Not detected (Not Detected) B. pertussis DNA (PCR) Not detected (Not Detected) B.parapertussis DNA PCR Not detected (Not Detected) C. pneumoniae DNA (PCR) Not detected (Not Detected) Coronavirus (PCR) Not detected (Not Detected) Human Metapneumovir PCR Not detected (Not Detected) Influenza A (RT-PCR) Not detected (Not Detected) Influenza B (RT-PCR) Not detected (Not Detected) M. pneumoniae (PCR) Not detected (Not Detected) Parainfluen 1,2,3,4 PCR Not detected (Not Detected) RSV (PCR) Not detected (Not Detected) Entero/Rhino (PCR) Not detected (Not Detected) 04/22/19 04/22/19 Range/Units 05:09 05:09 WBC 6.27 (3.98-10.04) K/mm3 RBC 4.04 (3.98-5.22) M/mm3 Hgb 12.3 (11.2-15.7) gm/dl Hct 36.1 (34.1-44.9) % MCV 89.4 (79.4-94.8) fl MCH 30.4 (25.6-32.2) pg MCHC 34.1 (32.2-35.5) g/dl RDW Std Deviation 38.8 (36.4-46.3) fL Plt Count 310 D (182-369) K/mm3 MPV 9.8 (9.4-12.3) fl Neut % (Auto) 43.3 (34.0-71.1) % Lymph % (Auto) 37.2 (19.3-51.7) % [place] % (Auto) 9.1 (4.7-12.5) % Eos % (Auto) 5.1 (0.7-5.8) Baso % (Auto) 1.8 H (0.1-1.2) % Neut # (Auto) 2.72 (1.56-6.13) K/mm3 Lymph # (Auto) 2.33 (1.18-3.74) K/mm3 [place] # (Auto) 0.57 H (0.24-0.36) K/mm3 Eos # (Auto) 0.32 (0.04-0.36) K/mm3 Baso # (Auto) 0.11 H (0.01-0.08) K/mm3 Manual Slide Review Normal smear Sodium 140 (136-145) mEq/L Potassium 3.6 (3.5-5.1) mEq/L Chloride 103 (98-107) mEq/L Carbon Dioxide 28 (21-32) mEq/L Anion Gap 12.6 (5-15) BUN 15 (7-18) mg/dL Creatinine 0.8 (0.55-1.02) mg/dL Est Cr Clr Drug Dosing 60.43 mL/min Estimated GFR (MDRD) > 60 (>60) mL/min BUN/Creatinine Ratio 18.8 H (14-18) Glucose 87 (74-106) mg/dL Calcium 9.6 (8.5-10.1) mg/dL Magnesium 2.1 (1.8-2.4) mg/dl Total Bilirubin 0.3 (0.2-1.0) mg/dL AST 70 H (15-37) U/L ALT 71 H (14-59) U/L Alkaline Phosphatase 112 (46-116) U/L Total Protein 6.7 (6.4-8.2) g/dl Albumin 3.1 L (3.4-5.0) g/dl Globulin 3.6 gm/dL Albumin/Globulin Ratio 0.9 L (1-2) Procalcitonin (<0.10) ng/mL Adenovirus (PCR) (Not Detected) B. pertussis DNA (PCR) (Not Detected) B.parapertussis DNA PCR (Not Detected) C. pneumoniae DNA (PCR) (Not Detected) Coronavirus (PCR) (Not Detected) Human Metapneumovir PCR (Not Detected) Influenza A (RT-PCR) (Not Detected) Influenza B (RT-PCR) (Not Detected) M. pneumoniae (PCR) (Not Detected) Parainfluen 1,2,3,4 PCR (Not Detected) RSV (PCR) (Not Detected) Entero/Rhino (PCR) (Not Detected) AMANDA Results - Last 24 hrs: Microbiology 04/18/19 03:12 Aerobic Blood Culture - Preliminary Blood - Venous NO GROWTH AFTER 4 DAYS Anaerobic Blood Culture - Preliminary NO GROWTH AFTER 4 DAYS 04/18/19 00:15 Aerobic Blood Culture - Preliminary Blood - Venous NO GROWTH AFTER 4 DAYS Anaerobic Blood Culture - Preliminary NO GROWTH AFTER 4 DAYS 04/18/19 00:23 Aerobic Blood Culture - Preliminary Blood - Venous - Lab Draw NO GROWTH AFTER 4 DAYS Anaerobic Blood Culture - Preliminary NO GROWTH AFTER 4 DAYS 04/18/19 05:17 Streptococcus pneumoniae Antigen (M - Final Urine Med Orders - Current: Current Medications Acetaminophen (Tylenol) 650 mg PO Q4H PRN PRN Reason: Fever Last Admin: 04/19/19 08:20 Dose: 650 mg Acetaminophen/Butalbital/Caffeine (Fioricet 325-50-40 Mg) 2 tab PO Q6H PRN PRN Reason: Headache Last Admin: 04/22/19 02:30 Dose: 2 tab Amoxicillin/Clavulanate Potassium (Augmentin 875 Mg/125 Mg) 1 tab PO Q12H [facility] Last Admin: 04/22/19 06:16 Dose: 1 tab Azithromycin (Zithromax) 500 mg PO Q24H [facility] Last Admin: 04/21/19 21:05 Dose: 500 mg Benzonatate (Tessalon Perles) 100 mg PO QID PRN PRN Reason: Cough Last Admin: 04/21/19 21:10 Dose: 100 mg Enoxaparin Sodium (Lovenox) 40 mg SUBCUT DAILY [facility] Last Admin: 04/22/19 08:17 Dose: 40 mg Guaifenesin (Robitussin) 200 mg PO Q4H PRN PRN Reason: Cough Last Admin: 04/20/19 14:15 Dose: 200 mg Guaifenesin/Codeine Phosphate (Robitussin Ac) 5 ml PO Q4H PRN PRN Reason: Cough Last Admin: 04/21/19 21:10 Dose: 5 ml Hydrochlorothiazide (Hydrochlorothiazide) 12.5 mg PO DAILY [facility] Last Admin: 04/22/19 08:16 Dose: 12.5 mg Ketorolac Tromethamine (Toradol) 30 mg IV Q8H PRN PRN Reason: Pain (moderate 4-6) Stop: 04/23/19 14:18 Last Admin: 04/20/19 12:56 Dose: 30 mg Lisinopril (Prinivil) 10 mg PO DAILY [facility] Last Admin: 04/22/19 08:17 Dose: 10 mg Ondansetron HCl (Zofran) 4 mg IV Q6H PRN PRN Reason: Nausea/Vomiting Ondansetron HCl (Zofran Odt) 4 mg PO Q6H PRN PRN Reason: nausea, able to take PO Oseltamivir Phosphate (Tamiflu) 75 mg PO BID [facility] Last Admin: 04/22/19 08:16 Dose: 75 mg Simvastatin (Zocor) 20 mg PO DAILY [facility] Last Admin: 04/22/19 08:17 Dose: 20 mg Sodium Chloride (Sodium Chloride 0.9%) 3 ml INH ASDIRECTED PRN PRN Reason: SPUTUM INDUCTION Last Admin: 04/19/19 09:51 Dose: 3 ml Sodium Chloride (Saline Flush) 10 ml FLUSH ASDIRECTED PRN PRN Reason: Keep Vein Open Discontinued Medications Acetaminophen/Butalbital/Caffeine (Fioricet 325-50-40 Mg) 1 tab PO Q6H PRN PRN Reason: Pain Last Admin: 04/18/19 11:49 Dose: 1 tab Amoxicillin/Clavulanate Potassium (Augmentin 875 Mg/125 Mg) 1 tab PO ONETIME STA Stop: 04/18/19 01:29 Last Admin: 04/18/19 01:57 Dose: 1 tab Azithromycin (Zithromax) 500 mg PO ONETIME STA Stop: 04/18/19 01:31 Last Admin: 04/18/19 01:57 Dose: 500 mg Hydromorphone HCl (Dilaudid) 0.5 mg IVPUSH ONETIME ONE Stop: 04/17/19 23:58 Last Admin: 04/18/19 00:22 Dose: 0.5 mg Hydromorphone HCl (Dilaudid) 0.5 mg IVPUSH ONETIME ONE Stop: 04/18/19 05:10 Last Admin: 04/18/19 05:21 Dose: 0.5 mg Lactated Ringer's (Ringers, Lactated) 1,000 mls @ 999 mls/hr IV .BOLUS ONE Stop: 04/18/19 00:56 Last Admin: 04/18/19 00:22 Dose: 999 mls/hr Magnesium Sulfate 2 gm/ Premix 50 mls @ 50 mls/hr IV ONETIME ONE Stop: 04/18/19 02:27 Last Admin: 04/18/19 01:55 Dose: 50 mls/hr Lactated Ringer's (Ringers, Lactated) 1,000 mls @ 200 mls/hr IV ASDIRECTED [facility] Last Admin: 04/19/19 10:14 Dose: 200 mls/hr Ampicillin Sodium/Sulbactam (Sodium 3 gm/ Sodium Chloride) 100 mls @ 200 mls/ hr IV Q6H [facility] Last Admin: 04/21/19 09:17 Dose: 200 mls/hr Azithromycin 500 mg/ Sodium (Chloride) 250 mls @ 250 mls/hr IV Q24H [facility] Last Admin: 04/20/19 22:30 Dose: 250 mls/hr Ketorolac Tromethamine (Toradol) 30 mg IVPUSH ONETIME STA Stop: 04/17/19 23:58 Last Admin: 04/18/19 00:22 Dose: 30 mg Morphine Sulfate (Morphine) 1 mg IVPUSH Q2H PRN PRN Reason: Pain (severe 7-10) Stop: 04/19/19 14:23 Ondansetron HCl (Zofran) 4 mg IVPUSH ONETIME ONE Stop: 04/17/19 23:58 Last Admin: 04/18/19 00:21 Dose: 4 mg Ondansetron HCl (Zofran) 4 mg IVPUSH ONETIME ONE Stop: 04/18/19 05:10 Last Admin: 04/18/19 05:17 Dose: 4 mg Ondansetron HCl (Zofran Odt) 4 mg PO Q6H PRN PRN Reason: Nausea/Vomiting Last Admin: 04/19/19 08:21 Dose: 4 mg Potassium Chloride (Klor-Con M20) 20 meq PO ONETIME ONE Stop: 04/20/19 08:42 Last Admin: 04/20/19 10:17 Dose: 20 meq Sodium Chloride (Sodium Chloride 3%) 3 ml NEB STAT [facility]HEL[facility] Last Admin: 04/18/19 04:04 Dose: 3 ml Sodium Chloride (Sodium Chloride 3%) 4 ml NEB Q6HRRT ONE Stop: 04/18/19 05:16 Last Admin: 04/18/19 05:34 Dose: 4 ml - Exam General: Reports: Alert, Oriented HEENT: Reports: Pupils Equal, EOMI, Mucous Membr. Moist/[place] Neck: Reports: Supple Lungs: Reports: Clear to Auscultation, Normal Respiratory Effort Cardiovascular: Reports: Regular Rate, Regular Rhythm GI/Abdominal Exam: Normal Bowel Sounds, Soft, Non-Tender, No Organomegaly, No Distention, No Abnormal Bruit, No Mass, Pelvis Stable Skin: Reports: Warm, Dry, Intact Psy/Mental Status: Reports: Alert, Normal Affect, Normal Mood
[2019-04-22 11:25] VITALS: PULSE 66
== END 2019-04-22 12:35 | disposition home or self-care (01) | DRG 139 ==
LOC: JD.ED 22:54 → JD.MS 04-18 10:24
PROVIDERS: ADMIT Internal Medicine; ATTEND Internal Medicine
DX: J18.1 Lobar pneumonia, unspecified organism (principal); E83.39 Other disorders of phosphorus metabolism; D69.6 Thrombocytopenia, unspecified; D72.819 Decreased white blood cell count, unspecified; E78.5 Hyperlipidemia, unspecified; R51 Headache; R10.9 Unspecified abdominal pain; I10 Essential (primary) hypertension; E87.0 Hyperosmolality and hypernatremia; E83.42 Hypomagnesemia; K21.9 Gastro-esophageal reflux disease without esophagitis; E78.00 Pure hypercholesterolemia, unspecified; F41.9 Anxiety disorder, unspecified; F32.9 Major depressive disorder, single episode, unspecified; E66.9 Obesity, unspecified; Z90.49 Acquired absence of other specified parts of digestive tract; Z91.041 Radiographic dye allergy status; Z79.899 Other long term (current) drug therapy; Z87.891 Personal history of nicotine dependence; Z68.35 Body mass index [BMI] 35.0-35.9, adult
CPT/HCPCS: 36415; 70450; 70450-26; 71046; 71046-26; 80048; 80053; 83605; 83735; 84100; 84145; 85007; 85025; 85027; 86480; 86738; 87040; 87207; 87486; 87556; 87581; 87632; 87798; 87899; 94640; 94760; 96361; 96365; 96375; 96376; 99284; 99285-25; A9270-GY; G0433; J0295; J0456; J1170; J1650; J1885; J2405; J3475; J7050; J7120

== ENCOUNTER 2019-04-29 12:58 | Emergency (ER) | payer BC ==
[2019-04-29 13:24] VITALS: BP 125/85; PULSE 96
--- NOTE | 2019-04-29 13:24 | EDM.PDOC ---
ED HPI GENERAL MEDICAL PROBLEM - General Chief Complaint: Respiratory Problem Stated Complaint: POSSIBLE BLOOD CLOT SENT BY DR DE LEON Time Seen by Provider: 04/29/19 13:24 Source of Information: Reports: Patient History Limitations: Reports: No Limitations - History of Present Illness INITIAL COMMENTS - FREE TEXT/NARRATIVE: 49-year-old female presents to the ED and Dr. Michael request. He was seen for first postop hospitalization visit after being in hospital for 5 days with pneumonia. She was treated initially with Tamiflu as was suspected that she had influenza but returned to the hospital with 104.1 temperature on April 17. She was identified to have a left-sided pneumonia at that time and was admitted to hospital until the evening of April 22. Continues to have a paroxysmal cough often to the point of emesis. Bringing up large quantities of sputum. A chest x-ray was reportedly done at the clinic this morning and results reported to be clear. She is on her last day of Augmentin antibiotic therapy. However she was complaining of pain in the popliteal fossa or right leg with mild swelling. Dimer was minimally elevated at 0.65 most likely from recent infective process. She was sent to the ED therefore for further evaluation to rule out PE. In the past she had a atypical reaction to contrast dye many years ago with right-sided hemiparesis and paresthesias that lasted about 2 hours after contrast greater than 10 years ago. She will have a Doppler ultrasound of her right lower extremity carried out therefore. She will receive medications prophylactically to prevent any reactions with dexamethasone and Benadryl IV prior to an angiogram Onset: Gradual Onset Date: 04/26/19 (Pain pressure in the popliteal fossa right leg 3 days. Of note she has been laying around a good deal over the last 10 days post development of fever and pneumonia. Spent 5 of those days in hospital.) Duration: Day(s): Location: Reports: Chest (Paroxysmal cough and still dyspnea on minimal exertion.), Lower Extremity, Right Quality: Reports: Ache (Pain pressure in the popliteal fossa for right leg 3 days for no good reason.), Throbbing (In the right leg) Severity: Moderate Improves with: Reports: None Worsens with: Reports: Movement (It is worsened by walking.) Context: Denies: Activity, Exercise, Lifting, Sick Contact, Trauma, Other Associated Symptoms: Reports: Cough, cough w sputum, Loss of Appetite, Malaise, Shortness of Breath, Weakness. 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) (Kidneys to take cough syrup with minimal effect.) Right Upper Leg Pain Score (Numeric/FACES): 4 - Related Data Allergies Allergy/AdvReac Type Severity Reaction Status Date / Time Iodinated Contrast Media AdvReac Shaking Verified 04/29/19 13:25 iopamidol [From Isovue-M] AdvReac Shaking Verified 04/29/19 13:25 topiramate [From Topamax] AdvReac Confusion Verified 04/29/19 13:25 Home Meds: Home Meds Albuterol Sulfate [Proair Hfa] 2 puff INH BID PRN 04/20/15 [History] Lisinopril/Hydrochlorothiazide [Zestoretic 10-12.5 mg Tablet] 1 tab PO DAILY [History] Omeprazole [Prilosec] 1 tab PO DAILY 04/20/15 [History] atorvaSTATin [Lipitor] 1 tab PO DAILY 04/20/15 [History] Hydrocodone/Acetaminophen [Hydrocodon-Acetaminophn 10-325] 1 - 2 tab PO Q6H PRN 01/23/16 [History] Ondansetron [Zofran ODT] 4 mg PO Q4H PRN 01/23/16 [History] Amoxicillin/Clavulanate K [Augmentin 875-125 MG] 1 tab PO Q12H #7 tablet [Rx] Codeine/guaiFENesin [Robitussin AC] 5 ml PO Q4H PRN #120 ml 04/22/19 [Rx] HYDROcodone/Chlorphen Polis [Hydrocodone-Chlorpheniram] 5 ml PO Q12H PRN #60 ml 04/29/19 [Rx] Past Medical History HEENT History: Reports: Impaired Vision Other HEENT History: wears glasses Cardiovascular History: Reports: High Cholesterol, Hypertension Respiratory History: Reports: Asthma, Sleep Apnea Gastrointestinal History: Reports: Colon Polyp, Gastritis, GERD Other Gastrointestinal History: Precancerous colon, chronic abdominal pain Genitourinary History: Reports: Retention, Urinary, UTI, Recurrent, Other (See Below) Other Genitourinary History: states has a cyst on right kidney states it is usually her left kidney that bothers her but right now it is both of them 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 - Infectious Disease History Infectious Disease History: Reports: Chicken Pox Other Infectious Disease History: recent trip to [facility], [facility] - Past Surgical History HEENT Surgical History: Reports: Oral Surgery GI Surgical History: Reports: Appendectomy, Cholecystectomy, Colonoscopy, EGD, Hernia, Abdominal Female Surgical History: Reports: Hysterectomy, Tubal Ligation Social & Family History - Family History Family Medical History: Noncontributory - Caffeine Use Caffeine Use: Reports: Coffee - Living Situation & Occupation Living situation: Reports: (), with Family (Grandson) Occupation: Employed ([employer]) ED ROS GENERAL - Review of Systems Review Of Systems: See Below Constitutional: Reports: Malaise (Liver has dissipated.), Weakness, Fatigue, Decreased Appetite. Denies: Fever, Chills HEENT: Reports: No Symptoms Respiratory: Reports: Shortness of Breath, Wheezing, Cough, Sputum. Denies: Hemoptysis Cardiovascular: Reports: Chest Pain, Dyspnea on Exertion (Occurs with coughing at times.), Lightheadedness. Denies: Blood Pressure Problem (Upper chest pain from coughing so much.), Claudication, Edema, Orthopnea, Palpitations Endocrine: Reports: Fatigue GI/Abdominal: Reports: Decreased Appetite. Denies: Diarrhea : Reports: Incontinence (Stress-induced her cough induced.) Musculoskeletal: Reports: Back Pain, Joint Pain Skin: Reports: No Symptoms (Knees hips low back at times) Neurological: Reports: No Symptoms Psychiatric: Reports: No Symptoms ED EXAM, GENERAL - Physical Exam Exam: See Below Exam Limited By: No Limitations General Appearance: Alert, WD/WN, Other (Dyspneic at rest. Temperature is 36.2 pulse is 96. Respiratory 16-20/m with sats of 100% on room air. BP 125/85.) Eye Exam: Bilateral Eye: Normal Inspection, PERRL Ears: Normal TMs Throat/Mouth: Normal Inspection, Normal Lips, Normal Teeth, Normal Oropharynx Head: Atraumatic, Normocephalic Neck: Normal Inspection, Supple, Non-Tender, Full Range of Motion. No: Lymphadenopathy (L), Lymphadenopathy (R) Respiratory/Chest: Lungs Clear (Mild tachypnea), Normal Breath Sounds, No Accessory Muscle Use, Chest Non-Tender, Respiratory Distress Cardiovascular: Normal Peripheral Pulses, Regular Rate, Rhythm, No Edema, No Gallop, No Murmur, No Rub Peripheral Pulses: 2+: Posterior Tibial (L), Posterior Tibial (R), Dorsalis Pedis (L), Dorsalis Pedis (R) GI/Abdominal: Normal Bowel Sounds, Soft, Non-Tender, No Organomegaly, No Abnormal Bruit, No Mass, Pelvis Stable, Other (Mildly obese.) Extremities: Normal Inspection, Normal Range of Motion, Non-Tender, Other (He does have some tenderness the popliteal fossa for right leg. Mild tenderness at the insertion of the medial hamstring musculature and mild tenderness on insertion of the medial gastroc muscle. There is very minimal edema in the lower extremity right at the ankle. Pain is slightly worse with dorsiflexion of the foot. No pain on palpation of the gastrocnemius muscles or the soleus or in the midline of the right lower leg. ) Neurological: Alert, Oriented, CN II-XII Intact, Normal Cognition Psychiatric: Normal Affect, Normal Mood Skin Exam: Warm, Dry, Intact, Normal Color, No Rash Lymphatic: Other (Continues to have a paroxysmal productive sounding cough) Course - Vital Signs Last Recorded V/S: Last Vital Signs Temp 36.2 C 04/29/19 13:21 Pulse 96 04/29/19 13:21 Resp 16 04/29/19 13:21 BP 125/85 04/29/19 13:21 Pulse Ox 100 04/29/19 13:21 - Orders/Labs/Meds Orders: Active Orders 24 hr Category Date Time Status Chest PE [Ang Chest] [CT] Stat Exams 04/29/19 14:10 Taken VL Duplex Lwr Ext Veins Ltd Rt [US] Stat Exams 04/29/19 13:33 Taken Dextrose 5%-0.9% NaCl [Dextrose 5%-Normal Saline] 1,000 Med 04/29/19 13:45 Active ml IV ASDIRECTED Sodium Chloride 0.9% [Normal Saline] 100 ml Med 04/29/19 13:45 Active IV ASDIRECTED Medication Orders Dextrose/Sodium Chloride (Dextrose 5%-Normal Saline) 1,000 mls @ 150 mls/hr IV ASDIRECTED NICHELLE Last Admin: 04/29/19 14:04 Dose: 150 mls/hr Sodium Chloride (Normal Saline) 100 mls @ 60 mls/hr IV ASDIRECTED NICHELLE Last Admin: 04/29/19 14:50 Dose: 60 mls/hr Meds: Medications Generic Name Dose Route Start Last Admin Trade Name Freq PRN Reason Stop Dose Admin Dextrose/Sodium Chloride 1,000 mls @ 150 mls/hr 04/29/19 13:45 04/29/19 14:04 Dextrose 5%-Normal Saline IV 150 mls/hr ASDIRECTED NICHELLE Administration Sodium Chloride 100 mls @ 60 mls/hr 04/29/19 13:45 04/29/19 14:50 Normal Saline IV 60 mls/hr ASDIRECTED NICHELLE Administration Discontinued Medications Generic Name Dose Route Start Last Admin Trade Name Freq PRN Reason Stop Dose Admin Dexamethasone 10 mg 04/29/19 13:32 04/29/19 14:01 Dexamethasone IVPUSH 04/29/19 13:33 10 mg ONETIME ONE Administration Diphenhydramine HCl 25 mg 04/29/19 13:33 04/29/19 13:59 Benadryl IVPUSH 04/29/19 13:34 25 mg ONETIME ONE Administration Iopamidol 100 ml 04/29/19 13:44 04/29/19 14:50 Isovue-370 (76%) IVPUSH 04/29/19 13:45 100 ml ONETIME ONE Administration Sodium Chloride 10 ml 04/29/19 13:44 04/29/19 14:50 Saline Flush FLUSH 04/29/19 13:45 10 ml ONETIME ONE Administration - Radiology Interpretation Free Text/Narrative:: 49-year-old female presents to the ED at the instructions of her doctor Dr. Rodrigues. She presents the clinic today for her first postop hospitalization review after being hospice for 5 days April 17 with pneumonia left lung. She reports she still coughing paroxysmal and still bringing up a large amount of sputum. Almost emesis after coughing so hard. Chest x-ray this morning apparently showed resolution of the pneumonia. She complained of pain in the popliteal fossa for right foot and ankle. She's been laid up on the couch or in bed for the last 10 days. Concern for PE existed. A d-dimer was found to be minimally elevated at 0.65. Limits of normal for this patient is 0.50. Examiner ablation of her leg on my assessment is very minimally suspect for a DVT. There is some pain on insertion of the medial gastrocnemius and hamstring muscles. Lungs are clear to auscultation percussion without any adventitial sounds. Patient had an atypical reaction to CT contrast in the past about 10 years ago. She said she developed right-sided numbness tingling and weakness for about 2 hours. Is very tremulous for a period of time as well. Therefore she will receive prophylactic medication dexamethasone 10 mg IV and Benadryl 25 mg IV before any contrast is given. In the meantime a Doppler ultrasound will be done on her right lower extremity. 2 pulmonary grams will be delayed for a good 35- 45 minutes. - Re-Assessments/Exams Free Text/Narrative Re-Assessment/Exam: 04/29/19 14:41: Duplex ultrasound of the right lower extremity reveals no DVT. The deep right veins are unremarkable, femoral, femoral, proximal profunda femoral and popliteal veins are patent without any thrombus. Normal Doppler waveforms normal compressibility and augmentation response. The right superficial veins are unremarkable final femoral junction is patent without thrombus. Soft tissues also appear unremarkable. 04/29/19 14:56 CT pulmonary angiogram has been completed there is no evidence of pulmonary embolism. Left lung is also completely cleared appears that her pneumonia has completely resolved. Cardiac silhouette is within normal limits.. There is a moderate hiatal hernia evident. Visualized portions of the liver are normal other than mild fatty infiltration. Gallbladder is absent. There is a large cyst in the superior pole of the left kidney. Pancreas appears normal. 04/29/19 15:00 reviewed the findings with the patient. She has done her antibiotics and she has collection chambers to collect her stools at home since had diarrhea since being placed on Augmentin. I'm going to give her a prescription for pen tests cough syrup 5 mils every 12 hours. 4 severe paroxysmal cough since she is nearly finished the Phenergan with codeine but is only taking 5 mils which is likely not going to help her cough much. She will follow with Dr. De Leon if any further problems occur Departure - Departure Time of Disposition: 15:01 Disposition: Home, Self-Care 01 Condition: Fair Clinical Impression: Paroxysmal cough, Left leg pain - Discharge Information *PRESCRIPTION DRUG MONITORING PROGRAM REVIEWED*: Not Applicable *COPY OF PRESCRIPTION DRUG MONITORING REPORT IN PATIENT MAGGIE: Not Applicable Prescriptions: HYDROcodone/Chlorphen Polis [Hydrocodone-Chlorpheniram] 5 ml PO Q12H PRN #60 ml PRN Reason: Cough relief Referrals: Juve De Leon MD [Primary Care Provider] - Forms: ED Department Discharge Additional Instructions: Evaluation the emergent today in regards to pain in the popliteal fossa of your right knee which means behind her knee. This is most likely due to tendinitis involving the medial hamstring muscle insertion sites and gastroc anemias muscle insertion site on the inside of the joint. The capsule itself does not appear to be clinically enlarged to suggest a Dee's cyst. Her ultrasound of the entire right lower chimney was performed in the ED and no deep venous clots were identified nor any superficial vein clots identified. Pulmonary angiogram was completed with intravenous medications Benadryl 25 mg and dexamethasone 10 mg IV to prevent any recurrent allergic response to the contrast media as your expression adverse event on last CT scan with IV contrast several years ago. Rule out CT pulmonary angiogram to be done of your chest which proved to be negative for any blood clots in the lungs. It also showed that there is no further evidence of pneumonia involving the left lung field. He do have a hiatal hernia which means your stomach lives part-time up in your lower chest make shoe much more prone to burping, belching and heartburn. Cause pain in the pit of the stomach as well. This will be noted after a larger meal and you should avoid soda pop or airated beverages that have extra gas in them. At this time. No further treatment is required. As you indicated to diarrhea is to be checked for Clostridium difficile infection after being on antibiotic therapy and then sewn sent home with collection chambers to get this done. Follow-up with if any further problems occur. Due to your continued severe paroxysmal cough I have written a prescription for methadone cough syrup called plantaris. 5 mils is to be taken about an hour before bedtime and in the morning if needed for severe cough relief. The last 6-12 hours. Sepsis Event Note - Focused Exam Vital Signs: Vital Signs Temp Pulse Resp BP Pulse Ox 04/29/19 13:21 36.2 C 96 16 125/85 100 Date Exam was Performed: 04/29/19 Time Exam was Performed: 14:51 - My Orders Last 24 Hours: My Active Orders 04/29/19 13:33 VL Duplex Lwr Ext Veins Ltd Rt [US] Stat 04/29/19 13:45 Dextrose 5%-0.9% NaCl [Dextrose 5%-Normal Saline] 1,000 ml IV ASDIRECTED Sodium Chloride 0.9% [Normal Saline] 100 ml IV ASDIRECTED 04/29/19 14:10 Chest PE [Ang Chest] [CT] Stat - Assessment/Plan Last 24 Hours: My Active Orders 04/29/19 13:33 VL Duplex Lwr Ext Veins Ltd Rt [US] Stat 04/29/19 13:45 Dextrose 5%-0.9% NaCl [Dextrose 5%-Normal Saline] 1,000 ml IV ASDIRECTED Sodium Chloride 0.9% [Normal Saline] 100 ml IV ASDIRECTED 04/29/19 14:10 Chest PE [Ang Chest] [CT] Stat
[2019-04-29] MEDS ORDERED: Dexamethasone 10 MG/ML SDV IVPUSH ONE (13:32)
[2019-04-29] MEDS ORDERED: diphenhydrAMINE 50 MG/ML SDV IVPUSH ONE (13:33)
[2019-04-29] MEDS ORDERED: Iopamidol 755 Mg/ML 100 ML Bottle IVPUSH ONE (13:44)
[2019-04-29] MEDS ORDERED: Sodium Chloride 0.9% 10 ML Syringe FLUSH ONE (13:44)
[2019-04-29] MEDS ORDERED: Dextrose 5%-0.9% NaCl 1,000 ML IV SCH (13:45)
[2019-04-29] MEDS ORDERED: Sodium Chloride 0.9% 100 ML IV SCH (13:45)
--- NOTE | 2019-05-01 07:02 | US ---
Right lower extremity deep venous ultrasound: Duplex and color Doppler imaging was obtained of the right common femoral, proximal greater saphenous, superficial femoral, popliteal, posterior tibial and peroneal veins. Left common femoral vein was also evaluated. Findings: Normal phasic flow, augmentation and compression are seen. Impression: 1. No evidence of deep venous thrombosis within the right lower extremity or within the left common femoral vein. Diagnostic code #1 This report was dictated in [place] Standard Time I agree with preliminary report from [facility], finalized on 04/29/19, 3:30 PM Central Time
--- NOTE | 2019-05-01 08:31 | CT ---
CT chest Technique: Multiple axial sections were obtained from above the lung apices inferiorly through the lung bases. Intravenous contrast was utilized. Study has been performed as a pulmonary angiogram protocol. Comparison: No prior chest CT, prior chest x-ray of 04/18/19. Findings: No findings of pulmonary embolism. Aorta shows no aneurysm. No mediastinal mass or hilar adenopathy is seen. No pericardial thickening is seen. Small hiatal hernia is noted. Surgical clips are seen from previous cholecystectomy. Low density lesion compatible with cyst is partially visualized within the upper left kidney measuring 4.0 cm in size. No axillary adenopathy is seen. Lungs show no acute parenchymal change. No pleural effusions or pneumothorax is seen. Bone window settings were reviewed which show mild scattered degenerative change. Impression: 1. No findings of pulmonary embolism. 2. Other findings which are believed to be incidental as noted above. Diagnostic code #2 This report was dictated in [place] Standard Time I agree with preliminary report from [facility], finalized on 04/29/19, 3:51 PM Central Time
== END 2019-04-29 15:31 | disposition home or self-care (01) ==
LOC: JD.ED 12:58
DX: M79.605 Pain in left leg (principal); R05 Cough; I10 Essential (primary) hypertension; E78.00 Pure hypercholesterolemia, unspecified; J45.909 Unspecified asthma, uncomplicated; K21.9 Gastro-esophageal reflux disease without esophagitis; F41.9 Anxiety disorder, unspecified; F32.9 Major depressive disorder, single episode, unspecified; E66.9 Obesity, unspecified; Z68.36 Body mass index [BMI] 36.0-36.9, adult; Z91.041 Radiographic dye allergy status; Z88.8 Allergy status to other drugs, medicaments and biological substances; Z79.899 Other long term (current) drug therapy
CPT/HCPCS: 71275; 93971; 96361; 96374; 96375; 99283; J1100; J1200; J7042; J7050; Q9967

== ENCOUNTER 2019-06-13 11:13 | Emergency (ER) | payer BC ==
[2019-06-13 11:34] VITALS: BP 139/90; PULSE 83
[2019-06-13] MEDS ORDERED: Ondansetron 4 MG/2 ML SDV IVPUSH ONE (12:07)
[2019-06-13] MEDS ORDERED: Tamsulosin 0.4 MG Cap.ER PO STA (12:07)
[2019-06-13] MEDS ORDERED: HYDROmorphone 1 MG/ML Syringe IVPUSH STA (12:07)
--- NOTE | 2019-06-13 12:13 | EDM.PDOC ---
ED HPI GENERAL MEDICAL PROBLEM - General Chief Complaint: Flank Pain Stated Complaint: FLANK PAIN/VOMITING Time Seen by Provider: 06/13/19 11:30 Source of Information: Reports: Patient, Old Records (outpt CT report done this AM), RN Notes Reviewed History Limitations: Reports: No Limitations - History of Present Illness INITIAL COMMENTS - FREE TEXT/NARRATIVE: Patient is a 49-year-old female who presents to the ED for ongoing left-sided flank pain due to a kidney stone. The patient was diagnosed with a 3.4 mm obstructing stone at the left UVJ earlier this morning. The CT was done in this facility but ordered by Brionna Mak on outpatient basis. Patient states that she feels the need to void, but has not been able to pass much urine. She is quite nauseous at this time, did vomit this morning a little bit earlier. Pain in her left flank was around an 8 out of 10, and states she did get prescriptions from the provider, but has not been able to pick them up yet. Patient's not having any fevers or chills, or dysuria at this time. Left Flank Pain Score (Numeric/FACES): 8 - Related Data Allergies Allergy/AdvReac Type Severity Reaction Status Date / Time Iodinated Contrast Media AdvReac Shaking Verified 06/13/19 11:26 iopamidol [From Isovue-M] AdvReac Shaking Verified 06/13/19 11:26 topiramate [From Topamax] AdvReac Confusion Verified 06/13/19 11:26 Home Meds: Home Meds Albuterol Sulfate [Proair Hfa] 2 puff INH BID PRN 04/20/15 [History] Lisinopril/Hydrochlorothiazide [Zestoretic 10-12.5 mg Tablet] 1 tab PO DAILY [History] Omeprazole [Prilosec] 1 tab PO DAILY 04/20/15 [History] atorvaSTATin [Lipitor] 1 tab PO DAILY 04/20/15 [History] Hydrocodone/Acetaminophen [Hydrocodon-Acetaminophn 10-325] 1 - 2 tab PO Q6H PRN 01/23/16 [History] Ondansetron [Zofran ODT] 4 mg PO Q4H PRN 01/23/16 [History] Amoxicillin/Clavulanate K [Augmentin 875-125 MG] 1 tab PO Q12H #7 tablet [Rx] Codeine/guaiFENesin [Robitussin AC] 5 ml PO Q4H PRN #120 ml 04/22/19 [Rx] HYDROcodone/Chlorphen Polis [Hydrocodone-Chlorpheniram] 5 ml PO Q12H PRN #60 ml 04/29/19 [Rx] cephALEXin [Cephalexin] 500 mg PO BID #10 capsule 06/13/19 [Rx] Past Medical History HEENT History: Reports: Impaired Vision Other HEENT History: wears glasses Cardiovascular History: Reports: High Cholesterol, Hypertension Respiratory History: Reports: Asthma, Sleep Apnea Gastrointestinal History: Reports: Colon Polyp, Gastritis, GERD Other Gastrointestinal History: Precancerous colon, chronic abdominal pain Genitourinary History: Reports: Renal Calculus, Retention, Urinary, UTI, Recurrent, Other (See Below) Other Genitourinary History: states has a cyst on right kidney states it is usually her left kidney that bothers her but right now it is both of them 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 - Infectious Disease History Infectious Disease History: Reports: Chicken Pox Other Infectious Disease History: recent trip to [facility], [facility] - Past Surgical History HEENT Surgical History: Reports: Oral Surgery GI Surgical History: Reports: Appendectomy, Cholecystectomy, Colonoscopy, EGD, Hernia, Abdominal Female Surgical History: Reports: Hysterectomy, Tubal Ligation Social & Family History - Family History Family Medical History: Noncontributory - Tobacco Use Smoking Status *Q: Never Smoker - Caffeine Use Caffeine Use: Reports: None - Recreational Drug Use Recreational Drug Use: No - Living Situation & Occupation Living situation: Reports: (), with Family (Grandson) Occupation: Employed ([employer]) ED ROS GENERAL - Review of Systems Review Of Systems: See Below Constitutional: Denies: Fever, Chills Respiratory: Denies: Shortness of Breath GI/Abdominal: Reports: Nausea, Vomiting (1 episode this AM). Denies: Constipation, Diarrhea : Reports: Flank Pain (Left), Urinary Retention (states she feels the need, but cannot urinate) ED EXAM, RENAL/ - Physical Exam Exam: See Below Exam Limited By: No Limitations General Appearance: Alert, WD/WN, Mild Distress (pt appears to be in mild amount of pain, she is curled up in a ball at bedside) Throat/Mouth: Normal Inspection, Normal Lips Head: Atraumatic, Normocephalic Neck: Normal Inspection Respiratory/Chest: No Respiratory Distress, Lungs Clear, Normal Breath Sounds, No Accessory Muscle Use, Chest Non-Tender Cardiovascular: Normal Peripheral Pulses GI/Abdominal: Normal Bowel Sounds, Soft, Non-Tender, No Distention, No Mass Back Exam: Normal Inspection, Full Range of Motion. No: CVA Tenderness (L), CVA Tenderness (R) Extremities: Normal Inspection, Normal Capillary Refill Neurological: Alert, Oriented, Normal Cognition, No Motor/Sensory Deficits Psychiatric: Normal Affect, Normal Mood Skin Exam: Warm, Dry, Intact, Normal Color, No Rash Course - Vital Signs Last Recorded V/S: Last Vital Signs Temp 97.1 F 06/13/19 11:29 Pulse 83 06/13/19 11:29 Resp 14 06/13/19 11:29 BP 139/90 06/13/19 11:29 Pulse Ox 100 06/13/19 11:29 - Orders/Labs/Meds Orders: Active Orders 24 hr Category Date Time Status Bladder Scan [RC] ASDIRECTED Care 06/13/19 11:36 Active Strain Urine [RC] ASDIRECTED Care 06/13/19 12:07 Ordered CULTURE URINE [RM] Routine Lab 06/13/19 15:41 Ordered Sodium Chloride 0.9% [Normal Saline] 1,000 ml Med 06/13/19 12:15 Ordered IV ASDIRECTED Medication Orders Sodium Chloride (Normal Saline) 1,000 mls @ 999 mls/hr IV ASDIRECTED NICHELLE Last Admin: 06/13/19 12:24 Dose: 999 mls/hr Labs: Laboratory Tests 06/13/19 Range/Units 14:45 Urine Color Yellow (Yellow) Urine Appearance Clear (Clear) Urine pH 6.5 (5.0-8.0) Ur Specific [place] 1.020 (1.005-1.030) Urine Protein 1+ H (Negative) Urine Glucose (UA) Negative (Negative) Urine Ketones Negative (Negative) Urine Occult Blood 3+ H (Negative) Urine Nitrite Negative (Negative) Urine Bilirubin Negative (Negative) Urine Urobilinogen 0.2 (0.2-1.0) Ur Leukocyte Esterase 1+ H (Negative) Urine RBC 30-40 H (0-5) /hpf Urine WBC 5-10 H (0-5) /hpf Ur Squamous Epith Cells 5-10 H (0-5) /hpf Urine Bacteria Few (FEW) /hpf Urine Mucus Few (FEW) /hpf Meds: Medications Generic Name Dose Route Start Last Admin Trade Name Freq PRN Reason Stop Dose Admin Sodium Chloride 1,000 mls @ 999 mls/hr 06/13/19 12:15 06/13/19 12:24 Normal Saline IV 999 mls/hr ASDIRECTED NICHELLE Administration Discontinued Medications Generic Name Dose Route Start Last Admin Trade Name Freq PRN Reason Stop Dose Admin Hydromorphone HCl 1 mg 06/13/19 12:07 06/13/19 12:24 Dilaudid IVPUSH 06/13/19 12:08 1 mg ONETIME STA Administration Hydromorphone HCl 0.5 mg 06/13/19 13:31 06/13/19 14:00 Dilaudid IVPUSH 06/13/19 13:32 0.5 mg ONETIME ONE Administration Sodium Chloride 1,000 mls @ 999 mls/hr 06/13/19 13:31 06/13/19 14:00 Normal Saline IV 06/13/19 14:31 999 mls/hr ONETIME ONE Administration Metoclopramide HCl 10 mg 06/13/19 13:02 06/13/19 13:18 Reglan IVPUSH 06/13/19 13:03 10 mg ONETIME ONE Administration Ondansetron HCl 4 mg 06/13/19 12:07 06/13/19 12:24 Zofran IVPUSH 06/13/19 12:08 4 mg ONETIME ONE Administration Tamsulosin HCl 0.4 mg 06/13/19 12:07 06/13/19 12:28 Flomax PO 06/13/19 12:08 0.4 mg ONETIME STA Administration - Re-Assessments/Exams Free Text/Narrative Re-Assessment/Exam: 02/14/20 12:15 Patient presents to the ED for ongoing issues due to a kidney stone diagnosis morning. I did look at the CT report and there is a 3.4 mm stone noted at the left UVJ, that appears to be obstructing at this time. 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 A 3.4 mm stone should have no problem passing with fluids, patient will get some IV fluids, pain meds, some antinausea medication, and a dose of Flomax at today's visit 06/13/19 13:05 Nursing staff reports to me that the patient did vomit again. I did order 10 mg Reglan for management. 06/13/19 15:25 Was reassessed at bedside, she has been able to provide us with a urine at this time. Will check to make sure there is no infection present, patient is reporting pain relief from the medications given. 06/13/19 15:44 Urine is back, and is suggestive of a UTI at this time. Patient will be placed on Keflex 500 mg twice daily for 5 days and the urine will be sent for culture. Departure - Departure Time of Disposition: 15:44 Disposition: Home, Self-Care 01 Condition: Fair Clinical Impression: Kidney stone on left side UTI (urinary tract infection) Qualifiers: Urinary tract infection type: acute cystitis Hematuria presence: with hematuria Qualified Code(s): N30.01 - Acute cystitis with hematuria - Discharge Information *PRESCRIPTION DRUG MONITORING PROGRAM REVIEWED*: No *COPY OF PRESCRIPTION DRUG MONITORING REPORT IN PATIENT MAGGIE: No Prescriptions: cephALEXin [Cephalexin] 500 mg PO BID #10 capsule Instructions: Low-Purine Eating Plan, Urinary Tract Infection, Adult, Easy-to- Read Forms: ED Department Discharge Additional Instructions: You have been evaluated in the ED for your urinary symptoms. Your urinalysis was consistent with an acute urinary tract infection. Your urine was sent for culture, and you will be notified if you should need a change in your antibiotic. This may take up to 48 hours to result. You may take AZO for urinary pain relief. This is available over the counter, and can be attained at any retail store like [employer] or any pharmacy. Please be aware that this medication will make your urine turn orange. You have been given a prescription for Cephalexin, 500 mg 1 tablet 2 times a day for 5 days. This has been electronically sent to the [facility] pharmacy located near [facility]. Please increase your oral fluid intake and try to stay adequately hydrated. Please take all other previous medications as prescribed by your provider this morning for symptomatic relief of your kidney stone. You will be sent home with a strainer, and please use a strainer every time you go to the bathroom until you pass the stone. If you have not passed a stone in a day or 2, you may need to be seen through urology for removal. Please return to the ED if your symptoms change or worsen. Sepsis Event Note - Evaluation Sepsis Screening Result: No Definite Risk - Focused Exam Vital Signs: Vital Signs Temp Pulse Resp BP Pulse Ox 06/13/19 11:29 97.1 F 83 14 139/90 100 Date Exam was Performed: 06/13/19 Time Exam was Performed: 15:44 - My Orders Last 24 Hours: My Active Orders 06/13/19 11:36 Bladder Scan [RC] ASDIRECTED 06/13/19 12:07 Strain Urine [RC] ASDIRECTED 06/13/19 12:15 Sodium Chloride 0.9% [Normal Saline] 1,000 ml IV ASDIRECTED 06/13/19 15:41 CULTURE URINE [RM] Routine - Assessment/Plan Last 24 Hours: My Active Orders 06/13/19 11:36 Bladder Scan [RC] ASDIRECTED 06/13/19 12:07 Strain Urine [RC] ASDIRECTED 06/13/19 12:15 Sodium Chloride 0.9% [Normal Saline] 1,000 ml IV ASDIRECTED 06/13/19 15:41 CULTURE URINE [RM] Routine
[2019-06-13] MEDS ORDERED: Sodium Chloride 0.9% 1,000 ML IV SCH (12:15)
[2019-06-13] MEDS ORDERED: Metoclopramide 10 MG/2 ML SDV IVPUSH ONE (13:02)
[2019-06-13] MEDS ORDERED: Sodium Chloride 0.9% 1,000 ML IV ONE (13:31)
[2019-06-13] MEDS ORDERED: HYDROmorphone 0.5 MG/0.5 ML Syringe IVPUSH ONE (13:31)
== END 2019-06-13 15:55 | disposition home or self-care (01) ==
LOC: JD.ED 11:13
DX: N20.0 Calculus of kidney (principal); N30.01 Acute cystitis with hematuria; E78.00 Pure hypercholesterolemia, unspecified; I10 Essential (primary) hypertension; J45.909 Unspecified asthma, uncomplicated; K21.9 Gastro-esophageal reflux disease without esophagitis; E66.9 Obesity, unspecified; Z68.38 Body mass index [BMI] 38.0-38.9, adult; Z87.442 Personal history of urinary calculi; Z87.440 Personal history of urinary (tract) infections; Z88.8 Allergy status to other drugs, medicaments and biological substances; Z91.041 Radiographic dye allergy status; Z79.899 Other long term (current) drug therapy
CPT/HCPCS: 51798; 81001; 87086; 87088; 87186; 96361; 96374; 96375; 96376; 99284; A9270; J1170; J2405; J2765; J7030

== ENCOUNTER 2019-10-08 08:56 | Day surgery (SDC) | payer BC ==
[~2019-10-08 08:56] MED LIST changes: -Scopolamine 1.5 MG Transdermal Patch TOP PRN
[2019-10-08] MEDS ORDERED: Scopolamine 1.5 MG Transdermal Patch TOP SCH (09:00)
[2019-10-08] MEDS ORDERED: Propofol 200 MG/20 ML SDV ONE ×2 (09:03→10:54)
[2019-10-08] MEDS ORDERED: fentaNYL 100 MCG/2 ML SDV ONE (09:03)
[2019-10-08] MEDS ORDERED: Midazolam 1 MG/ML 2 ML SDV ONE (09:04)
--- NOTE | 2019-10-08 09:11 | PCM.PREANE ---
Preanesthetic Assessment - Procedure Proposed Procedure: EGD and Colonoscopy - Anesthesia/Transfusion/Family Hx Anesthesia History: Prior Anesthesia Without Reaction Family History of Anesthesia Reaction: No Transfusion History: No Prior Transfusion(s) Intubation History: Unknown - Review of Systems General: No Symptoms Pulmonary: No Symptoms Cardiovascular: Dyspnea on Exertion Gastrointestinal: Abdominal Pain (hunger) Neurological: Numbness (Feet and fingers) Other: Reports: Easy Bleeding, Easy Bruising, Liver Problems (Fatty liver), Neck Pain ("pintched nerve") - Physical Assessment NPO Status Date: 10/07/19 NPO Status Time: 00:00 Height: 1.52 m Weight: 91.9 kg ASA Class: 3 Mental Status: Alert & Oriented x3 Airway Class: Mallampati = 3 Dentition: Reports: Dentures Thyro-Mental Finger Breadths: 2 Mouth Opening Finger Breadths: 2 ROM/Head Extension: Full Lungs: Clear to Auscultation, Normal Respiratory Effort Cardiovascular: Regular Rate, Regular Rhythm - Lab Values: Laboratory Last Values SARS Virus RNA (PCR) Negative (NEGATIVE) 10/06/19 14:30 - Allergies Allergies/Adverse Reactions: Allergies Allergy/AdvReac Type Severity Reaction Status Date / Time lisinopril Allergy Cough Verified 10/07/19 13:15 Iodinated Contrast Media AdvReac Shaking Verified 10/07/19 13:15 iopamidol [From Isovue-M] AdvReac Shaking Verified 10/07/19 13:15 topiramate [From Topamax] AdvReac Confusion Verified 10/07/19 13:15 - Blood Blood Available: No Product(s) Available: None - Anesthesia Plan Pre-Op Medication Ordered: None - Acknowledgements Anesthesia Type Planned: MAC Pt an Appropriate Candidate for the Planned Anesthesia: Yes Alternatives and Risks of Anesthesia Discussed w Pt/Guardian: Yes Pt/Guardian Understands and Agrees with Anesthesia Plan: Yes PreAnesthesia Questionnaire HEENT History: Reports: Impaired Vision Other HEENT History: wears glasses Cardiovascular History: Reports: High Cholesterol, Hypertension Respiratory History: Reports: Asthma, Sleep Apnea, SOB Gastrointestinal History: Reports: Colon Polyp, Gastritis, GERD Other Gastrointestinal History: Precancerous colon, chronic abdominal pain Genitourinary History: Reports: Renal Calculus, Retention, Urinary, UTI, Recurrent, Other (See Below) Other Genitourinary History: states has a cyst on right kidney states it is usually her left kidney that bothers her but right now it is both of them 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: , Other (See Below) Other OB/BYN History: ovarian sx Musculoskeletal History: Reports: Fracture Neurological History: Reports: Concussion, Other (See Below) Other Neuro History: ulnar neuropathy Psychiatric History: Reports: Anxiety, Depression Endocrine/Metabolic History: Reports: Obesity/BMI 30+ Other Endocrine/Metabolic History: just checks blood sugars because patient states her blood sugar gets low Hematologic History: Reports: None Immunologic History: Reports: None Oncologic (Cancer) History: Reports: Other (See Below) Other Oncologic History: pre-cancer of colon, Dx'd during colonoscopy. Dermatologic History: Reports: None - Infectious Disease History Infectious Disease History: Reports: None Other Infectious Disease History: recent trip to [facility], [place] - Past Surgical History Head Surgeries/Procedures: Reports: None HEENT Surgical History: Reports: Oral Surgery Respiratory Surgical History: Reports: None GI Surgical History: Reports: Appendectomy, Cholecystectomy, Colonoscopy, EGD, Hernia, Abdominal Other GI Surgeries/Procedures: scar tissure removed from stomach Female Surgical History: Reports: Hysterectomy, Tubal Ligation Neurological Surgical History: Reports: None Musculoskeletal Surgical History: Reports: Other (See Below) Other Musculoskeletal Surgeries/Procedures:: knee scope - SUBSTANCE USE Recreational Drug Use History: No - HOME MEDS Home Medications: Home Meds atorvaSTATin [Lipitor] 1 tab PO DAILY 04/20/15 [History] Hydrocodone/Acetaminophen [Hydrocodone-Acetamin 10-325 mg] 1 - 2 tab PO Q6H PRN 01/23/16 [History] Ondansetron [Zofran ODT] 4 mg PO Q4H PRN 01/23/16 [History] Albuterol Sulfate [Proventil Hfa] 2 puff INH Q6H PRN 10/07/19 [History] DULoxetine [Cymbalta] 30 mg PO DAILY 10/07/19 [History] Esomeprazole Magnesium [Nexium] 40 mg PO DAILY 10/07/19 [History] Fluticasone/Vilanterol [Breo Ellipta 200-25 MCG Inhalation Kit] 1 puff INH DAILY 10/07/19 [History] Montelukast [Singulair] 10 mg PO DAILY 10/07/19 [History] Sucralfate [Carafate] 1 gm PO TID 10/07/19 [History] amLODIPine [Norvasc] 5 mg PO DAILY 10/07/19 [History] hydroCHLOROthiazide [Hydrochlorothiazide] 25 mg PO DAILY 10/07/19 [History] methocarbamoL [Robaxin] 500 mg PO Q6H PRN 10/07/19 [History] - CURRENT (IN HOUSE) MEDS Current Meds: Current Medications Lactated Ringer's (Ringers, Lactated) 1,000 mls @ 125 mls/hr IV ASDIRECTED NICHELLE Stop: 10/08/19 23:00 Lidocaine/Sodium Bicarbonate (Buffered Lidocaine 1% In Ns 8.4%) 0.25 ml IDERM ONETIME PRN PRN Reason: Prior to IV Start Stop: 10/08/19 18:00 Scopolamine (Transderm-Scop) 1.5 mg TOP ONETIME NICHELLE Stop: 10/08/19 23:00 Sodium Chloride (Saline Flush) 10 ml FLUSH ASDIRECTED PRN PRN Reason: Keep Vein Open Stop: 10/08/19 18:00
[2019-10-08] MEDS ORDERED: Ondansetron 4 MG/2 ML SDV ONE (10:14)
--- NOTE | 2019-10-08 11:16 | PCM48HPAN ---
Post Anesthesia Note - EVALUATION WITHIN 48HRS OF ANESTHETIC Vital Signs in Normal Range: Yes Patient Participated in Evaluation: Yes Respiratory Function Stable: Yes Airway Patent: Yes Cardiovascular Function Stable: Yes Hydration Status Stable: Yes Pain Control Satisfactory: Yes Nausea and Vomiting Control Satisfactory: Yes Mental Status Recovered: Yes Vital Signs: Last Vital Signs Temp 36.3 C 10/08/19 09:00 Pulse 79 10/08/19 09:00 Resp 16 10/08/19 09:00 BP 125/65 10/08/19 09:00 Pulse Ox 94 L 10/08/19 09:00
--- NOTE | 2019-10-08 11:18 | PCM.OPNOTE ---
- General Post-Op/Procedure Note Date of Surgery/Procedure: 10/08/19 Operative Procedure(s): EGD and colonoscopy Findings: 1. Gastritis 2. Duodenitis 3. Gastric polyps 4. Irregular GE junction, suspicous for Pavon's esophagus 5. Poor colonoscopy prep 6. Diverticulosis Pre Op Diagnosis: Abdominal pain, nausea, vomiting, diarrhea Post-Op Diagnosis: same Anesthesia Technique: MAC Primary Surgeon: Gail Manzano Anesthesia Provider: Karen Madden Pathology: 1. Duodenal biopsies 2. Gastric antrum for H. Pylori 3. Gastric polyp biopsy 4. GE junction Fluid Replacement, Intraop: 900 Output, Urine Amount: 0 EBL in mLs: 0 Complications: none apparent Condition: Good
--- NOTE | 2019-10-08 11:19 | PCM.PRNOTE ---
- Free Text/Narrative Note: operative Report Date of Procedure: October 08, 2019 Pre Op Diagnosis: Upper abdominal pain, nausea, vomiting, diarrhea Post-Op Diagnosis: Same Operative Procedures: 1. EGD with biopsy 2. Colonoscopy to the ascending colon Primary Surgeon: Gail Manzano MD Anesthesia Provider: Karen Madden CRNA Anesthesia Technique: MAC IV Fluid Replacement, Intraop: 900cc crystalloid Output, Urine Amount: 0cc EBL in mLs: 0cc Findings: 1. Gastritis 2. Duodenitis 3. Gastric polyps 4. Irregular GE junction, suspicous for Pavon's esophagus 5. Poor colonoscopy prep 6. Diverticulosis Specimens: 1. Duodenal biopsies 2. Gastric antrum for H. Pylori 3. Gastric polyp biopsy 4. GE junction Drain/Tubes: None Indication: The patient is an 49-year-old lady who presented to the clinic for evaluation. The patient reported symptoms of upper abdominal pain, nausea, vomiting, and diarrhea. The patient was consented for a diagnostic EGD and colonoscopy. Risks of bleeding, and perforation were discussed, and the patient agreed to the risks and wished to proceed. Description of the procedure: The patient was taken back to the endoscopy suite, and placed in the left lateral decubitus position. A bite block was placed. The patient was sedated with MAC anesthesia. The Olympus video endoscope was inserted into the oropharynx and guided under direct vision into the esophagus, stomach, and duodenum. There were findings of duodenitis in the bulb. Biopsies were taken with a cold biopsy forceps. The gastric antrum was inspected and cold biopsy forceps were used to take tissue samples for H. pylori. There was erythema consistent with gastritis in this area. The patient also had polypoid erythematous tissue in this area. This was biopsied using a cold biopsy forceps. The scope was withdrawn to the stomach and retroflexed. There was no increased fluid, food or secretions in the upper gastrointestinal tract. No erosions or ulcers were noted. The scope was withdrawn to the esophagus. Short segment Barretts esophagus changes were noted, measuring 1 to 2 cm. Biopsies were taken in 4 quadrants using a cold biopsy forceps. The endoscope was then withdrawn Next, anorectal examination was performed. No lesions, masses or hemorrhoids were noted externally or on palpation. The scope was placed into the rectum and advanced with difficulty to the ascending colon. Despite multiple attempts, the cecum could not be reach. The patient was changed to supine position, had application of external abdominal pressure, and withdrawal with reinsertion of the scope. None of these maneuvers were successful. There was moderate tortuosity of the colon. The ileocecal valve was visualized. At this point, the scope was slowly withdrawn, paying attention to the mucosa. The patient had poor bowel prep, 75% of the mucosa was visible. Scattered diverticulosis was noted. In the rectum, scope was retroflexed and some hemorrhoidal tissue was noted. The scope was placed back in the lumen and excess air was aspirated. The scope was removed. The patient tolerated the procedure very well. Complications: None apparent Condition: The patient was transported to PACU in stable condition. Gail Manzano MD General Surgery
[2019-10-08 11:44] VITALS: BP 120/62; PULSE 72
== END 2019-10-08 12:42 | disposition home or self-care (01) ==
LOC: JD.SDS 08:56
PROVIDERS: ATTEND Surgery
DX: K57.30 Diverticulosis of large intestine without perforation or abscess without bleeding (principal); K29.70 Gastritis, unspecified, without bleeding; K29.80 Duodenitis without bleeding; K31.7 Polyp of stomach and duodenum; K22.8 Other specified diseases of esophagus; K64.9 Unspecified hemorrhoids; Z11.59 Encounter for screening for other viral diseases; K21.9 Gastro-esophageal reflux disease without esophagitis; I10 Essential (primary) hypertension; E66.9 Obesity, unspecified; Z90.49 Acquired absence of other specified parts of digestive tract; Z86.010 Personal history of colon polyps; Z79.899 Other long term (current) drug therapy; Z91.041 Radiographic dye allergy status; Z88.8 Allergy status to other drugs, medicaments and biological substances; Z87.891 Personal history of nicotine dependence; Z68.39 Body mass index [BMI] 39.0-39.9, adult
CPT/HCPCS: 43239; 45378; 87635; A9270; J2250; J2405; J2704; J3010; J7120; U0002

== ENCOUNTER 2020-03-31 07:23 | Day surgery (SDC) | payer BC ==
--- NOTE | 2020-03-31 08:24 | PCM.PREANE ---
Preanesthetic Assessment - Procedure Proposed Procedure: egd and colonoscopy - Anesthesia/Transfusion/Family Hx Type of Anesthesia Reaction: Excessive Nausea/Vomiting Family History of Anesthesia Reaction: No Transfusion History: No Prior Transfusion(s) Intubation History: Unknown - Review of Systems General: No Symptoms Pulmonary: No Symptoms Cardiovascular: No Symptoms Gastrointestinal: Abdominal Pain (going on a long time- a few years), Diarrhea, Nausea, Vomiting Neurological: No Symptoms Other: Reports: Depression, Anxiety - Physical Assessment NPO Status Date: 03/30/20 NPO Status Time: 23:00 Vital Signs: Last Vital Signs Temp 97.4 F 03/31/20 07:25 Pulse 82 03/31/20 07:25 Resp 16 03/31/20 07:25 BP 141/73 H 03/31/20 07:59 Pulse Ox 95 03/31/20 07:25 Height: 5 ft Weight: 94.347 kg ASA Class: 2 Mental Status: Alert & Oriented x3 Airway Class: Mallampati = 2 Dentition: Reports: Dentures (top and bottom) Thyro-Mental Finger Breadths: 3 Mouth Opening Finger Breadths: 3 ROM/Head Extension: Full Lungs: Clear to Auscultation, Normal Respiratory Effort Cardiovascular: Regular Rate, Regular Rhythm - Allergies Allergies/Adverse Reactions: Allergies Allergy/AdvReac Type Severity Reaction Status Date / Time lisinopril Allergy Cough Verified 03/30/20 09:37 Iodinated Contrast Media AdvReac Shaking Verified 03/30/20 09:37 iopamidol [From Isovue-M] AdvReac Shaking Verified 03/30/20 09:37 topiramate [From Topamax] AdvReac Confusion Verified 03/30/20 09:37 - Blood Blood Available: No - Acknowledgements Anesthesia Type Planned: MAC Pt an Appropriate Candidate for the Planned Anesthesia: Yes Alternatives and Risks of Anesthesia Discussed w Pt/Guardian: Yes Pt/Guardian Understands and Agrees with Anesthesia Plan: Yes PreAnesthesia Questionnaire HEENT History: Reports: Impaired Vision Other HEENT History: wears glasses Cardiovascular History: Reports: Angina, High Cholesterol, Hypertension Respiratory History: Reports: Asthma, Sleep Apnea, SOB Gastrointestinal History: Reports: Colon Polyp, Gastritis, GERD Other Gastrointestinal History: Precancerous colon, chronic abdominal pain, esophagitis, colon polyp, diagnostic laparoscopy Genitourinary History: Reports: Renal Calculus, Retention, Urinary, UTI, Recurrent, Other (See Below) HOTEL MAID History: Reports: , Other (See Below) Other OB/BYN History: ovarian sx Musculoskeletal History: Reports: Fracture, Other (See Below) Other Musculoskeletal History: lumbar radiculopathy, ulnar neuropathy, bilateral carpal tunnel syndrome, polyarthralgia, right knee pain, right IT band syndrome Neurological History: Reports: Concussion, Other (See Below) Other Neuro History: ulnar neuropathy Psychiatric History: Reports: Anxiety, Depression Endocrine/Metabolic History: Reports: Obesity/BMI 30+ Hematologic History: Reports: Anemia Immunologic History: Reports: None Oncologic (Cancer) History: Reports: None Dermatologic History: Reports: None - Infectious Disease History Infectious Disease History: Reports: None Other Infectious Disease History: recent trip to [facility], [place] - Past Surgical History Head Surgeries/Procedures: Reports: None HEENT Surgical History: Reports: Oral Surgery Cardiovascular Surgical History: Reports: None Respiratory Surgical History: Reports: None GI Surgical History: Reports: Appendectomy, Cholecystectomy, Colonoscopy, EGD, Hernia, Abdominal Other GI Surgeries/Procedures: scar tissure removed from stomach, lysis of adhesions Female Surgical History: Reports: Hysterectomy, Tubal Ligation Endocrine Surgical History: Reports: None Neurological Surgical History: Reports: None Musculoskeletal Surgical History: Reports: Other (See Below) Other Musculoskeletal Surgeries/Procedures:: left shoulder video arthroscopy, left bicep tenotomy Oncologic Surgical History: Reports: None - SUBSTANCE USE Tobacco Use Status *Q: Former Tobacco User (quit 13 years ago) Tobacco Use Within Last Twelve Months: No Second Hand Smoke Exposure: Yes Days Per Week of Alcohol Use: 0 Recreational Drug Use History: No - HOME MEDS Home Medications: Home Meds atorvaSTATin [Lipitor] 20 mg PO DAILY 04/20/15 [History] Hydrocodone/Acetaminophen [Hydrocodone-Acetamin 10-325 mg] 1 - 2 tab PO Q6H PRN 01/23/16 [History] Ondansetron [Zofran ODT] 4 mg PO Q4H PRN 01/23/16 [History] Albuterol Sulfate [Proventil Hfa] 2 puff INH Q6H PRN 10/07/19 [History] Esomeprazole Magnesium [Nexium] 40 mg PO DAILY 10/07/19 [History] Fluticasone/Vilanterol [Breo Ellipta 200-25 MCG Inhalation Kit] 1 puff INH DAILY 10/07/19 [History] Montelukast [Singulair] 10 mg PO DAILY 10/07/19 [History] Sucralfate [Carafate] 1 gm PO BID 10/07/19 [History] amLODIPine [Norvasc] 5 mg PO DAILY 10/07/19 [History] hydroCHLOROthiazide [Hydrochlorothiazide] 25 mg PO DAILY 10/07/19 [History] Atovaquone/Proguanil [Malarone 250-100 MG] 1 tab PO DAILY 03/30/20 [History] DULoxetine [Cymbalta] 60 mg PO DAILY 03/30/20 [History] Famotidine [Pepcid] 20 mg PO DAILY 03/30/20 [History] tiZANidine [Zanaflex] 4 mg PO Q8H PRN 03/30/20 [History] - CURRENT (IN HOUSE) MEDS Current Meds: Current Medications Lactated Ringer's (Ringers, Lactated) 1,000 mls @ 125 mls/hr IV ASDIRECTED NICHELLE Stop: 03/31/20 23:00 Last Admin: 03/31/20 07:45 Dose: 125 mls/hr Documented by: Lidocaine/Sodium Bicarbonate (Buffered Lidocaine 1% In Ns 8.4%) 0.25 ml IDERM ONETIME PRN PRN Reason: Prior to IV Start Stop: 03/31/20 18:00 Sodium Chloride (Saline Flush) 10 ml FLUSH ASDIRECTED PRN PRN Reason: Keep Vein Open Stop: 03/31/20 18:00
[2020-03-31] MEDS ORDERED: Propofol 200 MG/20 ML SDV ONE ×5 (09:06→09:51)
[2020-03-31] MEDS ORDERED: Lidocaine 1% 4 ML ONE (09:08)
--- NOTE | 2020-03-31 10:20 | PCM.OPNOTE ---
- General Post-Op/Procedure Note Date of Surgery/Procedure: 03/31/20 Operative Procedure(s): EGD and colonoscopy Findings: 1. Gastritis 2. Hiatal hernia 3. Irregular z-line 4. Gastric polyps 5. Ascending colon polyp 6. Sigmoid polyp 7. 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 Gastric antrum biopsies 2. Z-line biopsies 3. Ascending colon polyp 4. Sigmoid colon polyp Fluid Replacement, Intraop: 1,000 Output, Urine Amount: 0 EBL in mLs: 0 Complications: none apparent Condition: Good
--- NOTE | 2020-03-31 10:29 | PCM.PRNOTE ---
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 EGD with biopsy 2. Colonoscopy to the cecum Primary Surgeon: Gail aMnzano MD Anesthesia Provider: Tye Julio CRNA Anesthesia Technique: MAC IV Fluid Replacement, Intraop: 1000cc crystalloid Output, Urine Amount: 0cc EBL in mLs: 0cc Findings: 1. Gastritis 2. Hiatal hernia 3. Irregular z-line 4. Gastric polyps 5. Ascending colon polyp 6. Transverse colon irregular mucosa 7. Sigmoid polyp 8. Diverticulosis Specimens: 1. Gastric antrum biopsies 2. Z-line biopsies 3. Ascending colon polyp 4. Transverse colon mucosa biopsy 5. Sigmoid colon polyp Drain/Tubes: None Indication: The patient is a 50-year-old lady who presented to the clinic with ongoing complaints of upper abdominal pain and reflux. The patient reported symptoms of nausea, dysphagia and diarrhea. She has a history of a prior incomplete colonoscopy and suspected Pavon's esophagus. The patient was consented for a diagnostic EGD and colonoscopy. Risks of bleeding, and perforation were discussed, and the patient agreed to the risks and wished to proceed. Description of the procedure: The patient was taken back to the endoscopy suite, and placed in the left lateral decubitus position. A bite block was placed. The patient was sedated with MAC anesthesia. The Olympus video endoscope was inserted into the oropharynx and guided under direct vision into the esophagus, stomach, and duodenum. The duodenal bulb and second portion of the duodenum were unremarkable. The gastric antrum was inspected and cold biopsy forceps were used to take tissue samples for H. pylori. There was erythema in the stomach consistent with gastritis. The scope was withdrawn to the stomach and ret roflexed. There was no increased fluid, food or secretions in the upper gastrointestinal tract. There were scattered, benign appearing polyps in the stomach. No erosions or ulcers were noted. The scope was withdrawn to the esophagus. A this point we noted a hiatal hernia. [place] colored mucosa suspicious for Barretts esophagus changes were noted and biopsied in four quadrants with a cold biopsy forceps. The endoscope was then withdrawn. Next, anorectal examination was performed. No lesions, masses or hemorrhoids were noted externally or on palpation. The scope was placed into the rectum and advanced to cecum. Upon reaching the cecum, and the patients cecum was entered. There was tortuosity of the colon. The ileocecal valve was well visualized, but the appendiceal orifice was not identified due to the difficult anatomy. At this point, the scope was slowly withdrawn, paying attention to the mucosa. The patient had good bowel prep, 85-90% of the mucosa was visible. A 6mm ascending colon polyp was noted, and removed with a jumbo biopsy forceps. Some irregular mucosa was noted in the transverse colon and biopsied with a jumbo cold biopsy forceps. A 3mm sigmoid colon polyp was removed with a jumbo cold biopsy forceps. Scattered diverticulosis was noted in the colon. In the rectum, scope was retroflexed and some hemorrhoidal tissue was noted. The scope was placed back in the lumen and excess air was aspirated. The scope was removed. The patient tolerated the procedure very well. Complications: None apparent Condition: The patient was transported to PACU in stable condition. Gail Manzano MD General Surgery
--- NOTE | 2020-03-31 10:41 | PCM48HPAN ---
Post Anesthesia Note - EVALUATION WITHIN 48HRS OF ANESTHETIC Vital Signs in Normal Range: Yes Patient Participated in Evaluation: Yes Respiratory Function Stable: Yes Airway Patent: Yes Cardiovascular Function Stable: Yes Hydration Status Stable: Yes Pain Control Satisfactory: No (patient experiencing a lot of cramping) Nausea and Vomiting Control Satisfactory: Yes Mental Status Recovered: Yes Vital Signs: Last Vital Signs Temp 96.9 F 03/31/20 10:17 Pulse 81 03/31/20 10:30 Resp 20 03/31/20 10:30 BP 147/88 H 03/31/20 10:30 Pulse Ox 96 03/31/20 10:30
[2020-03-31] MEDS ORDERED: Alum Hydrox/Mag Hydrox/Simeth 30 ML, Lidocaine 2% 15 ML PO ONE ×2 (11:00)
[2020-03-31 11:41] VITALS: BP 124/70; PULSE 73
== END 2020-03-31 11:53 | disposition home or self-care (01) ==
LOC: JD.SDS 07:23
PROVIDERS: ATTEND Surgery
DX: D12.2 Benign neoplasm of ascending colon (principal); K21.00 Gastro-esophageal reflux disease with esophagitis, without bleeding; I51.89 Other ill-defined heart diseases; K29.70 Gastritis, unspecified, without bleeding; K44.9 Diaphragmatic hernia without obstruction or gangrene; K22.8 Other specified diseases of esophagus; K57.30 Diverticulosis of large intestine without perforation or abscess without bleeding; K64.9 Unspecified hemorrhoids; E66.9 Obesity, unspecified; I10 Essential (primary) hypertension; Z98.890 Other specified postprocedural states; Z79.899 Other long term (current) drug therapy; Z88.8 Allergy status to other drugs, medicaments and biological substances; Z87.891 Personal history of nicotine dependence; Z68.41 Body mass index [BMI] 40.0-44.9, adult; Z91.041 Radiographic dye allergy status; Z86.010 Personal history of colon polyps; Z90.49 Acquired absence of other specified parts of digestive tract
CPT/HCPCS: 43239; 45380; A9270; J2001; J2704; J7120

== ENCOUNTER 2020-05-05 14:22 | Emergency (ER) | payer BC ==
[2020-05-05] MEDS ORDERED: Sodium Chloride 0.9% 10 ML Syringe FLUSH PRN (14:50)
--- NOTE | 2020-05-05 15:01 | EDM.PDOC ---
ED HPI GENERAL MEDICAL PROBLEM - General Chief Complaint: Chest Pain Stated Complaint: CHEST PAIN Time Seen by Provider: 05/05/20 14:25 Source of Information: Reports: Patient History Limitations: Reports: No Limitations - History of Present Illness INITIAL COMMENTS - FREE TEXT/NARRATIVE: 50-year-old female presents to the emergency department with complaints of left chest pain. Patient states that she was on the phone with her surgeons nurse this morning when the nurse recommended that she be seen in the emergency department for her chest pain. Patient states that she has not felt well for about a week states that she has been excessively tired and feeling rundown and has not had an appetite. Denies fever, chills, nausea, vomiting, diarrhea, loss of taste or smell, however she states over the past 3 days she has not had an appetite and has not been eating or drinking much. States she has got chronic "stomach issues ", and she sees Dr. Lawson regarding this. She states that over the course of the past 3 days however she has developed left chest pain. Pain is worsened when taking a deep breath. Denies any radiation to left jaw or left shoulder. Chest Pain Score (Numeric/FACES): 5 - Related Data Allergies Allergy/AdvReac Type Severity Reaction Status Date / Time Iodinated Contrast Media AdvReac Shaking Verified 03/30/20 09:37 iopamidol [From Isovue-M] AdvReac Shaking Verified 03/30/20 09:37 lisinopril AdvReac Cough Verified 03/31/20 10:44 topiramate [From Topamax] AdvReac Confusion Verified 03/30/20 09:37 Home Meds: Home Meds atorvaSTATin [Lipitor] 20 mg PO DAILY 04/20/15 [History] Hydrocodone/Acetaminophen [Hydrocodone-Acetamin 10-325 mg] 1 - 2 tab PO Q6H PRN 01/23/16 [History] Ondansetron [Zofran ODT] 4 mg PO Q4H PRN 01/23/16 [History] Albuterol Sulfate [Proventil Hfa] 2 puff INH Q6H PRN 10/07/19 [History] Esomeprazole Magnesium [Nexium] 40 mg PO DAILY 10/07/19 [History] Fluticasone/Vilanterol [Breo Ellipta 200-25 MCG Inhalation Kit] 1 puff INH DAILY 10/07/19 [History] Montelukast [Singulair] 10 mg PO DAILY 10/07/19 [History] Sucralfate [Carafate] 1 gm PO BID 10/07/19 [History] amLODIPine [Norvasc] 5 mg PO DAILY 10/07/19 [History] hydroCHLOROthiazide [Hydrochlorothiazide] 25 mg PO DAILY 10/07/19 [History] Atovaquone/Proguanil [Malarone 250-100 MG] 1 tab PO DAILY 03/30/20 [History] DULoxetine [Cymbalta] 60 mg PO DAILY 03/30/20 [History] Famotidine [Pepcid] 20 mg PO DAILY 03/30/20 [History] tiZANidine [Zanaflex] 4 mg PO Q8H PRN 03/30/20 [History] Past Medical History HEENT History: Reports: Impaired Vision Other HEENT History: wears glasses Cardiovascular History: Reports: Angina, High Cholesterol, Hypertension, IN Respiratory History: Reports: Asthma, Sleep Apnea, SOB Gastrointestinal History: Reports: Colon Polyp, Gastritis, GERD Other Gastrointestinal History: Precancerous colon, chronic abdominal pain, esophagitis, colon polyp, diagnostic laparoscopy Genitourinary History: Reports: Renal Calculus, Retention, Urinary, UTI, Recurrent, Other (See Below) SIDE FRAMER History: Reports: , Other (See Below) Other SIDE FRAMER History: ovarian sx Musculoskeletal History: Reports: Fracture, Other (See Below) Other Musculoskeletal History: lumbar radiculopathy, ulnar neuropathy, bilateral carpal tunnel syndrome, polyarthralgia, right knee pain, right IT band syndrome Neurological History: Reports: Concussion, Other (See Below) Other Neuro History: ulnar neuropathy Psychiatric History: Reports: Anxiety, Depression Endocrine/Metabolic History: Reports: Obesity/BMI 30+ Hematologic History: Reports: Anemia Immunologic History: Reports: None Oncologic (Cancer) History: Reports: Other (See Below) Other Oncologic History: pre-cancer on colon polyp. Dermatologic History: Reports: None - Infectious Disease History Infectious Disease History: Reports: Chicken Pox, Influenza Other Infectious Disease History: recent trip to [facility], [place] - Past Surgical History HEENT Surgical History: Reports: Oral Surgery Other HEENT Surgeries/Procedures: teeth removed GI Surgical History: Reports: Appendectomy, Cholecystectomy, Colonoscopy, EGD, Hernia, Abdominal Other GI Surgeries/Procedures: scar tissure removed from stomach, lysis of adhesions Female Surgical History: Reports: Hysterectomy, Tubal Ligation Musculoskeletal Surgical History: Reports: Arthroscopic Knee, Shoulder Surgery, Other (See Below) Other Musculoskeletal Surgeries/Procedures:: left shoulder video arthroscopy, left bicep tenotomy Social & Family History - Family History Family Medical History: No Pertinent Family History - Tobacco Use Tobacco Use Status *Q: Never Tobacco User Second Hand Smoke Exposure: No - Caffeine Use Caffeine Use: Reports: Coffee - Recreational Drug Use Recreational Drug Use: No - Living Situation & Occupation Living situation: Reports: (), with Family (Grandson) Occupation: Employed ([employer]) ED ROS GENERAL - Review of Systems Review Of Systems: See Below Constitutional: Reports: Fatigue, Decreased Appetite. Denies: Fever, Chills HEENT: Reports: No Symptoms Respiratory: Reports: No Symptoms. Denies: Shortness of Breath, Pleuritic Chest Pain, Cough Cardiovascular: Reports: No Symptoms, Chest Pain (Left chest). Denies: Edema, Palpitations, Syncope Endocrine: Reports: No Symptoms GI/Abdominal: Reports: No Symptoms : Reports: No Symptoms Musculoskeletal: Reports: No Symptoms Skin: Reports: No Symptoms Neurological: Reports: No Symptoms Psychiatric: Reports: No Symptoms Hematologic/Lymphatic: Reports: No Symptoms Immunologic: Reports: No Symptoms ED EXAM, GENERAL - Physical Exam Exam: See Below Exam Limited By: No Limitations General Appearance: Alert, WD/WN, No Apparent Distress Eye Exam: Bilateral Eye: PERRL Ears: Hearing Grossly Normal Nose: Normal Inspection, Normal Mucosa, No Blood Throat/Mouth: Normal Inspection, Normal Voice, No Airway Compromise Head: Atraumatic, Normocephalic Neck: Normal Inspection, Supple, Non-Tender, Full Range of Motion Respiratory/Chest: No Respiratory Distress, Lungs Clear, Normal Breath Sounds, No Accessory Muscle Use, Chest Non-Tender Cardiovascular: Normal Peripheral Pulses, Regular Rate, Rhythm, No Edema, No Murmur Peripheral Pulses: 2+: Radial (L), Radial (R), Dorsalis Pedis (L), Dorsalis Pedis (R) GI/Abdominal: Normal Bowel Sounds, Soft, Non-Tender, No Distention (Female) Exam: Deferred Rectal (Female) Exam: Deferred Back Exam: Normal Inspection, Full Range of Motion Extremities: Normal Inspection, Normal Range of Motion, No Pedal Edema, Normal Capillary Refill Neurological: Alert, Oriented, Normal Cognition Psychiatric: Normal Affect, Normal Mood Skin Exam: Warm, Dry, Intact, Normal Color, No Rash Lymphatic: No Adenopathy #1 Interpretation EKG Date: 05/05/20 Time: 14:29 Rhythm: NSR Rate (Beats/Min): 78 [place]: Normal P-Wave: Present QRS: Normal ST-T: Normal QT: Normal Comparison: NA - No Prior EKG EKG Interpretation Comments: EKG interpretation per Dr. Garcia: Sinus rhythm at 70 bpm, left atrial hypertrophy, T wave flattening in aVLnonspecific, no signs of ischemia. Course - Vital Signs Text/Narrative:: 50-year-old female presents to the emergency department with complaints of left- sided chest pain. Patient states this started about 3 days ago and decided to come to the emergency department today after she had spoken with her surgeons nurse. She states over the course of the past week she has felt rundown, and tired, and has only been wanting to sleep. States she has had loss of appetite over the past 3 days and has not had much desire to eat or drink anything. She denies any fever, chills, nausea, vomiting, diarrhea, or loss of taste and smell. Upon assessment patient is not having chest pain while resting in bed however when she does take a deep breath she reports that the pain is increased and has significant chest pain with palpitation to the left chest wall. She denies any chest pain with palpitation to the right chest wall. Patient denies cough or shortness of breath. I have ordered a CBC, CMP, magnesium, C-reactive protein, troponin, chest x-ray, and an EKG. Patient does have some symptoms of Covid so I have ordered a Cov[facility] swab [facility]. Last Recorded V/S: Last Vital Signs Temp 97.8 F 05/05/20 14:23 Pulse 90 05/05/20 14:23 Resp 22 H 05/05/20 14:23 BP 112/66 05/05/20 14:23 Pulse Ox 100 05/05/20 14:23 - Orders/Labs/Meds Orders: Active Orders 24 hr Category Date Time Status EKG Documentation Completion [RC] STAT Care 05/05/20 14:50 Active CORONAVIRUS COVID-19 PCR PHL Stat Lab 05/05/20 15:20 Received Sodium Chloride 0.9% [Saline Flush] Med 05/05/20 14:50 Active 10 ml FLUSH ASDIRECTED PRN Saline Lock Insert [OM.PC] Stat Oth 05/05/20 14:50 Ordered Medication Orders Sodium Chloride (Saline Flush) 10 ml FLUSH ASDIRECTED PRN PRN Reason: Keep Vein Open Last Admin: 05/05/20 15:11 Dose: 10 ml Documented by: SHYANN Labs: Laboratory Tests 05/05/20 05/05/20 Range/Units 14:40 14:40 WBC 12.33 H (3.98-10.04) K/mm3 RBC 4.81 (3.98-5.22) M/mm3 Hgb 14.2 D (11.2-15.7) gm/dl Hct 43.3 (34.1-44.9) % MCV 90.0 (79.4-94.8) fl MCH 29.5 (25.6-32.2) pg MCHC 32.8 (32.2-35.5) g/dl RDW Std Deviation 42.8 (36.4-46.3) fL Plt Count 417 H D (182-369) K/mm3 MPV 9.9 (9.4-12.3) fl Neut % (Auto) 70.0 (34.0-71.1) % Lymph % (Auto) 19.5 (19.3-51.7) % [place] % (Auto) 8.5 (4.7-12.5) % Eos % (Auto) 1.4 (0.7-5.8) Baso % (Auto) 0.4 (0.1-1.2) % Neut # (Auto) 8.63 H (1.56-6.13) K/mm3 Lymph # (Auto) 2.40 (1.18-3.74) K/mm3 [place] # (Auto) 1.05 H (0.24-0.36) K/mm3 Eos # (Auto) 0.17 (0.04-0.36) K/mm3 Baso # (Auto) 0.05 (0.01-0.08) K/mm3 Manual Slide Review Normal smear Sodium 138 (136-145) mEq/L Potassium 3.6 (3.5-5.1) mEq/L Chloride 104 (98-107) mEq/L Carbon Dioxide 26 (21-32) mEq/L Anion Gap 11.6 (5-15) BUN 24 H (7-18) mg/dL Creatinine 0.9 (0.55-1.02) mg/dL Est Cr Clr Drug Dosing 53.12 mL/min Estimated GFR (MDRD) > 60 (>60) mL/min BUN/Creatinine Ratio 26.7 H (14-18) Glucose 78 (74-106) mg/dL Calcium 9.4 (8.5-10.1) mg/dL Magnesium 2.0 (1.8-2.4) mg/dl Total Bilirubin 0.4 (0.2-1.0) mg/dL AST 37 (15-37) U/L ALT 72 H (14-59) U/L Alkaline Phosphatase 170 H (46-116) U/L Troponin I < 0.017 (0.00-0.056) ng/mL C-Reactive Protein 0.8 (<1.0) mg/dL Total Protein 7.5 (6.4-8.2) g/dl Albumin 3.7 (3.4-5.0) g/dl Globulin 3.8 gm/dL Albumin/Globulin Ratio 1.0 (1-2) Meds: Medications Generic Name Dose Route Start Last Admin Trade Name Freq PRN Reason Stop Dose Admin Sodium Chloride 10 ml 05/05/20 14:50 05/05/20 15:11 Saline Flush FLUSH 10 ml ASDIRECTED PRN Administration Keep Vein Open - Radiology Interpretation Free Text/Narrative:: Nothing acute is appreciated on portable chest x-ray. - Re-Assessments/Exams Free Text/Narrative Re-Assessment/Exam: 05/05/20 15:39 WBC 12.33, this is likely due to response, BUN is 24, creatinine 0.9, AST 37, ALT 72, alk phos 170, troponin less than 0.017, C-reactive protein 0.8. Covid test is pending will be sent out to the state. No cardiac origin regarding patient's chest pain. She will be discharged to home. Pain likely due to musculoskeletal issues I will recommend she takes Tylenol or ibuprofen for the discomfort. Departure - Departure Time of Disposition: 15:51 Disposition: Home, Self-Care 01 Condition: Good Clinical Impression: Atypical chest pain, Musculoskeletal chest pain Instructions: Nonspecific Chest Pain, Adult, [id number] Referrals: Brionna Mak NP [Primary Care Provider] - Forms: ED Department Discharge Additional Instructions: You are seen in the emergency department with complaints of left-sided chest p ain. An EKG, chest x-ray and lab work all proved to be unremarkable for anything cardiac in origin. Chest pain is likely due to musculoskeletal pain. Suggest to go home and rest, use heat or ice, you may take ibuprofen 600 mg every 6 hours as needed or Tylenol 650 mg every 4 hours as needed for pain or discomfort. Also your tested for Covid today and this was sent out to the state. You should isolate until you hear results from the Department of Health regarding this. Should your condition worsen or change please return to the emergency department. Sepsis Event Note (ED) - Evaluation Sepsis Screening Result: No Definite Risk - Focused Exam Vital Signs: Vital Signs Temp Pulse Resp BP Pulse Ox 05/05/20 14:23 97.8 F 90 22 H 112/66 100 - My Orders Last 24 Hours: My Active Orders 05/05/20 14:50 EKG Documentation Completion [RC] STAT Sodium Chloride 0.9% [Saline Flush] 10 ml FLUSH ASDIRECTED PRN Saline Lock Insert [OM.PC] Stat 05/05/20 15:20 CORONAVIRUS COVID-19 PCR PHL Stat - Assessment/Plan Last 24 Hours: My Active Orders 05/05/20 14:50 EKG Documentation Completion [RC] STAT Sodium Chloride 0.9% [Saline Flush] 10 ml FLUSH ASDIRECTED PRN Saline Lock Insert [OM.PC] Stat 05/05/20 15:20 CORONAVIRUS COVID-19 PCR PHL Stat
--- NOTE | 2020-05-05 15:40 | CR ---
Chest: Portable view of the chest was obtained. Comparison: Prior chest x-ray of 04/16/19. Findings: Heart size and mediastinum are normal. Lungs are clear with no acute parenchymal change. No discrete bony abnormality is appreciated. Impression: 1. Nothing acute is seen on portable chest x-ray. Diagnostic code #1
[2020-05-05 16:13] VITALS: BP 106/62; PULSE 70
== END 2020-05-05 16:05 | disposition home or self-care (01) ==
LOC: JD.ED 14:22
DX: R07.89 Other chest pain (principal); I25.2 Old myocardial infarction; J45.909 Unspecified asthma, uncomplicated; K21.9 Gastro-esophageal reflux disease without esophagitis; E78.00 Pure hypercholesterolemia, unspecified; I10 Essential (primary) hypertension; F32.9 Major depressive disorder, single episode, unspecified; F41.9 Anxiety disorder, unspecified; E66.9 Obesity, unspecified; Z91.041 Radiographic dye allergy status; Z88.8 Allergy status to other drugs, medicaments and biological substances; Z79.899 Other long term (current) drug therapy; Z68.41 Body mass index [BMI] 40.0-44.9, adult; Z20.828 Contact with and (suspected) exposure to other viral communicable diseases
CPT/HCPCS: 36415; 71045; 71045-26; 80053; 83735; 84484; 85025; 86140; 93005; 99285-25; U0002

== ENCOUNTER 2020-05-23 11:25 | Emergency (ER) | payer BC ==
[2020-05-23] MEDS ORDERED: Ketorolac 60 MG/2 ML SDV IM ONE (12:14)
--- NOTE | 2020-05-23 13:21 | EDM.PDOC ---
ED HPI GENERAL MEDICAL PROBLEM - General Chief Complaint: Back Pain or Injury Stated Complaint: BACK PAIN Time Seen by Provider: 05/23/20 11:47 Source of Information: Reports: Patient History Limitations: Reports: No Limitations - History of Present Illness INITIAL COMMENTS - FREE TEXT/NARRATIVE: The patient presents with back pain. She said a couple years ago she had a back injury at work. She will get epidural injections every 3 months. She just got one and it did not help. She did reinjure her back about 2 weeks ago a door slammed into her back. She has no numbness or weakness. She has no bowel or bladder problems. Onset: Sudden Duration: Week(s): Location: Reports: Back Quality: Reports: Sharp Severity: Severe Improves with: Reports: Immobilization Worsens with: Reports: Movement Context: Reports: Trauma (Hit by a door in her back) Associated Symptoms: Reports: No Other Symptoms Treatments ON AIR ANNOUNCER: Reports: Other Medication(s), Other (see below) Other Treatments ON AIR ANNOUNCER: chiropractor, hydrocodone 5/325mg (1 tab) Middle Back Pain Score (Numeric/FACES): 7 - Related Data Allergies Allergy/AdvReac Type Severity Reaction Status Date / Time Iodinated Contrast Media AdvReac Shaking Verified 05/23/20 12:00 iopamidol [From Isovue-M] AdvReac Shaking Verified 05/23/20 12:00 lisinopril AdvReac Cough Verified 05/23/20 12:00 topiramate [From Topamax] AdvReac Confusion Verified 05/23/20 12:00 Home Meds: Home Meds atorvaSTATin [Lipitor] 20 mg PO DAILY 04/20/15 [History] Hydrocodone/Acetaminophen [Hydrocodone-Acetamin 10-325 mg] 1 - 2 tab PO Q6H PRN 01/23/16 [History] Ondansetron [Zofran ODT] 4 mg PO Q4H PRN 01/23/16 [History] Albuterol Sulfate [Proventil Hfa] 2 puff INH Q6H PRN 10/07/19 [History] Esomeprazole Magnesium [Nexium] 40 mg PO DAILY 10/07/19 [History] Fluticasone/Vilanterol [Breo Ellipta 200-25 MCG Inhalation Kit] 1 puff INH DAILY 10/07/19 [History] Montelukast [Singulair] 10 mg PO DAILY 10/07/19 [History] Sucralfate [Carafate] 1 gm PO BID 10/07/19 [History] amLODIPine [Norvasc] 5 mg PO DAILY 10/07/19 [History] hydroCHLOROthiazide [Hydrochlorothiazide] 25 mg PO DAILY 10/07/19 [History] Atovaquone/Proguanil [Malarone 250-100 MG] 1 tab PO DAILY 03/30/20 [History] DULoxetine [Cymbalta] 60 mg PO DAILY 03/30/20 [History] Famotidine [Pepcid] 20 mg PO DAILY 03/30/20 [History] tiZANidine [Zanaflex] 4 mg PO Q8H PRN 03/30/20 [History] Cyclobenzaprine [Flexeril] 10 mg PO TID PRN #20 tab 05/23/20 [Rx] Past Medical History HEENT History: Reports: Impaired Vision Other HEENT History: wears glasses Cardiovascular History: Reports: Angina, High Cholesterol, Hypertension, DC Respiratory History: Reports: Asthma, Sleep Apnea, SOB Gastrointestinal History: Reports: Colon Polyp, Gastritis, GERD Other Gastrointestinal History: Precancerous colon, chronic abdominal pain, esophagitis, colon polyp, diagnostic laparoscopy Genitourinary History: Reports: Renal Calculus, Retention, Urinary, UTI, Recurrent, Other (See Below) IT ASSISTANT History: Reports: , Other (See Below) Other IT ASSISTANT History: ovarian sx Musculoskeletal History: Reports: Fracture, Other (See Below) Other Musculoskeletal History: lumbar radiculopathy, ulnar neuropathy, bilateral carpal tunnel syndrome, polyarthralgia, right knee pain, right IT band syndrome Neurological History: Reports: Concussion, Other (See Below) Other Neuro History: ulnar neuropathy Psychiatric History: Reports: Anxiety, Depression Endocrine/Metabolic History: Reports: Obesity/BMI 30+ Hematologic History: Reports: Anemia Immunologic History: Reports: None Oncologic (Cancer) History: Reports: Other (See Below) Other Oncologic History: pre-cancer on colon polyp. Dermatologic History: Reports: None - Infectious Disease History Infectious Disease History: Reports: Chicken Pox, Influenza Other Infectious Disease History: recent trip to [facility], [place] - Past Surgical History Head Surgeries/Procedures: Reports: None HEENT Surgical History: Reports: Oral Surgery Other HEENT Surgeries/Procedures: teeth removed Cardiovascular Surgical History: Reports: None Respiratory Surgical History: Reports: None GI Surgical History: Reports: Appendectomy, Cholecystectomy, Colonoscopy, EGD, Hernia, Abdominal Other GI Surgeries/Procedures: scar tissure removed from stomach, lysis of adhesions Female Surgical History: Reports: Hysterectomy, Tubal Ligation Endocrine Surgical History: Reports: None Neurological Surgical History: Reports: None Musculoskeletal Surgical History: Reports: Arthroscopic Knee, Shoulder Surgery, Other (See Below) Other Musculoskeletal Surgeries/Procedures:: left shoulder video arthroscopy, left bicep tenotomy Oncologic Surgical History: Reports: None Social & Family History - Family History Family Medical History: No Pertinent Family History - Tobacco Use Tobacco Use Status *Q: Never Tobacco User Second Hand Smoke Exposure: No - Caffeine Use Caffeine Use: Reports: Coffee - Recreational Drug Use Recreational Drug Use: No - Living Situation & Occupation Living situation: Reports: (), with Family (Grandson) Occupation: Employed ([employer]) ED ROS GENERAL - Review of Systems Review Of Systems: See Below Constitutional: Reports: No Symptoms HEENT: Reports: No Symptoms Respiratory: Reports: No Symptoms Cardiovascular: Reports: No Symptoms Endocrine: Reports: No Symptoms GI/Abdominal: Reports: No Symptoms : Reports: No Symptoms Musculoskeletal: Reports: Back Pain ED EXAM,LOWER BACK PAIN/INJURY - Physical Exam Exam: See Below Exam Limited By: No Limitations General Appearance: Alert, No Apparent Distress Ears: Normal External Exam Nose: Normal Inspection Head: Atraumatic, Normocephalic Neck: Normal Inspection Respiratory/Chest: No Respiratory Distress, Lungs Clear, Normal Breath Sounds Cardiovascular: Regular Rate, Rhythm, No Edema, No Murmur GI/Abdominal: Soft, Non-Tender, No Organomegaly, No Mass Back Exam: Other (Pain upon palpation to the right low back and right lower ribs.) Extremities: Normal Inspection Course - Vital Signs Last Recorded V/S: Last Vital Signs Temp 95.7 F L 05/23/20 11:46 Pulse 78 05/23/20 11:46 Resp 22 H 05/23/20 11:46 BP 124/74 05/23/20 11:46 Pulse Ox 98 05/23/20 11:46 - Orders/Labs/Meds Orders: Active Orders 24 hr Category Date Time Status Lumbar Spine 2 or 3V [CR] Stat Exams 05/23/20 12:14 Taken Ribs 2V w Chest Rt [CR] Stat Exams 05/23/20 12:15 Taken Meds: Medications Discontinued Medications Generic Name Dose Route Start Last Admin Trade Name Rolly PRN Reason Stop Dose Admin Ketorolac Tromethamine 60 mg 05/23/20 12:14 05/23/20 12:35 Toradol IM 05/23/20 12:15 60 mg ONETIME ONE Administration - Re-Assessments/Exams Free Text/Narrative Re-Assessment/Exam: 05/23/20 13:19 I did an x-ray of her L-spine and ribs and I just see some degenerative changes but nothing acute. She also has some scoliosis. Departure - Departure Time of Disposition: 13:25 Disposition: Home, Self-Care 01 Condition: Good Clinical Impression: Low back pain Qualifiers: Chronicity: chronic Back pain laterality: right Sciatica presence: without sciatica Qualified Code(s): M54.5 - Low back pain; G89.29 - Other chronic pain - Discharge Information *PRESCRIPTION DRUG MONITORING PROGRAM REVIEWED*: Not Applicable *COPY OF PRESCRIPTION DRUG MONITORING REPORT IN PATIENT MAGGIE: Not Applicable Prescriptions: Cyclobenzaprine [Flexeril] 10 mg PO TID PRN #20 tab PRN Reason: Pain Referrals: Brionna Mak, [facility] [Primary Care Provider] - Additional Instructions: Take tylenol or motrin as needed for pain. Take flexeril as needed. Follow up with your doctor. Please return if you are worse. Sepsis Event Note (ED) - Evaluation Sepsis Screening Result: No Definite Risk - Focused Exam Vital Signs: Vital Signs Temp Pulse Resp BP Pulse Ox 05/23/20 11:46 95.7 F L 78 22 H 124/74 98 - My Orders Last 24 Hours: My Active Orders 05/23/20 12:14 Lumbar Spine 2 or 3V [CR] Stat 05/23/20 12:15 Ribs 2V w Chest Rt [CR] Stat - Assessment/Plan Last 24 Hours: My Active Orders 05/23/20 12:14 Lumbar Spine 2 or 3V [CR] Stat 05/23/20 12:15 Ribs 2V w Chest Rt [CR] Stat
[2020-05-23 14:04] VITALS: BP 139/96; PULSE 63
--- NOTE | 2020-05-23 14:08 | CR ---
Chest and right ribs: Frontal view of the chest was obtained as well as 3 views of the right ribs. Comparison: Previous chest x-ray of 05/05/20. Heart size and mediastinum are normal. Lungs are clear with no acute parenchymal change. No discrete right-sided rib fracture or other right-sided rib abnormality is appreciated. Slight degenerative change is scattered within the spine. Surgical clips are seen within the upper abdomen compatible with previous cholecystectomy. Impression: 1. Findings as noted above. 2. Nothing acute is seen on frontal chest x-ray. No discrete rib fracture is appreciated. Diagnostic code #2
--- NOTE | 2020-05-23 14:11 | CR ---
Lumbar spine: AP, lateral and cone-down lateral view centered to the lumbosacral junction were obtained. Comparison: Previous MRI lumbar spine study of 01/23/19. Slight scattered anterior osteophytes are seen within the lower thoracic spine. Disc spaces are fairly well maintained within the lumbar spine. Pedicles are intact. Transverse and spinous processes are intact. No subluxation or fracture is appreciated. Impression: 1. Slight degenerative change. 2. Nothing acute is appreciated on 3 view lumbar spine study. Diagnostic code #2
== END 2020-05-23 13:30 | disposition home or self-care (01) ==
LOC: JD.ED 11:25
DX: M54.5 Low back pain (principal); G89.29 Other chronic pain; R07.81 Pleurodynia; M54.6 Pain in thoracic spine; I10 Essential (primary) hypertension; E78.00 Pure hypercholesterolemia, unspecified; I25.2 Old myocardial infarction; J45.909 Unspecified asthma, uncomplicated; K21.9 Gastro-esophageal reflux disease without esophagitis; E66.9 Obesity, unspecified; Z68.41 Body mass index [BMI] 40.0-44.9, adult; Z91.041 Radiographic dye allergy status; Z88.8 Allergy status to other drugs, medicaments and biological substances; Z79.899 Other long term (current) drug therapy
CPT/HCPCS: 71101; 72100; 96372; 99283; J1885

== ENCOUNTER 2020-06-24 17:30 | Emergency (ER) | payer BC ==
[2020-06-24] MEDS ORDERED: Sodium Chloride 0.9% 10 ML Syringe FLUSH PRN (17:44)
--- NOTE | 2020-06-24 18:02 | EDM.PDOC ---
<Arvind Hayden Annabelle - Last Filed: 06/24/20 19:12> ED HPI GENERAL MEDICAL PROBLEM - General Chief Complaint: Chest Pain Stated Complaint: CHEST PAIN Time Seen by Provider: 06/24/20 17:41 Source of Information: Reports: Patient, RN Notes Reviewed - History of Present Illness INITIAL COMMENTS - FREE TEXT/NARRATIVE: 50 yr old female that developed chest discomfort, along with itchiness of skin, dizziness described as a severe lightheadedness about 1 1/2 hrs ago. She states she did get diaphoretic, resolved upon arrival to ED. She has been having a lot of abd pain recently. She had a CT this morning with IV and oral contrast. She has hx of "allergy to IV contrast" so was premedicated with benadryl and I assume steroid medication as well. She was just sitting getting dressed, getting ready for work when the symptoms started. She feels less dizzy and light headed now but still does have anterior chest discomfort. She has hx of Htn, possible CAD. She does not smoke. She has hx of severe GERD. No recent cough, fever or chills. No current nausea, vomiting or diarrhea. Chest Pain Score (Numeric/FACES): 8 - Related Data Allergies Allergy/AdvReac Type Severity Reaction Status Date / Time Iodinated Contrast Media AdvReac Shaking Verified 06/24/20 17:40 iopamidol [From Isovue-M] AdvReac Shaking Verified 06/24/20 17:40 lisinopril AdvReac Cough Verified 06/24/20 17:40 topiramate [From Topamax] AdvReac Confusion Verified 06/24/20 17:40 Home Meds: Home Meds atorvaSTATin [Lipitor] 20 mg PO DAILY 04/20/15 [History] Ondansetron [Zofran ODT] 4 mg PO Q4H PRN 01/23/16 [History] Albuterol Sulfate [Proventil Hfa] 2 puff INH Q6H PRN 10/07/19 [History] Esomeprazole Magnesium [Nexium] 40 mg PO DAILY 10/07/19 [History] Fluticasone/Vilanterol [Breo Ellipta 200-25 MCG Inhalation Kit] 1 puff INH DAILY 10/07/19 [History] Montelukast [Singulair] 10 mg PO DAILY 10/07/19 [History] Sucralfate [Carafate] 1 gm PO BID 10/07/19 [History] amLODIPine [Norvasc] 5 mg PO DAILY 10/07/19 [History] hydroCHLOROthiazide [Hydrochlorothiazide] 25 mg PO DAILY 10/07/19 [History] Atovaquone/Proguanil [Malarone 250-100 MG] 1 tab PO DAILY 03/30/20 [History] DULoxetine [Cymbalta] 60 mg PO DAILY 03/30/20 [History] Famotidine [Pepcid] 20 mg PO DAILY 03/30/20 [History] tiZANidine [Zanaflex] 4 mg PO Q8H PRN 03/30/20 [History] Cyclobenzaprine [Flexeril] 10 mg PO TID PRN #20 tab 05/23/20 [Rx] Past Medical History HEENT History: Reports: Impaired Vision Other HEENT History: wears glasses Cardiovascular History: Reports: Angina, High Cholesterol, Hypertension, [place] Respiratory History: Reports: Asthma, Sleep Apnea, SOB Gastrointestinal History: Reports: Colon Polyp, Gastritis, GERD Other Gastrointestinal History: Precancerous colon, chronic abdominal pain, esophagitis, colon polyp, diagnostic laparoscopy Genitourinary History: Reports: Renal Calculus, Retention, Urinary, UTI, R ecurrent, Other (See Below) MARKETER History: Reports: , Other (See Below) Other MARKETER History: ovarian sx Musculoskeletal History: Reports: Fracture, Other (See Below) Other Musculoskeletal History: lumbar radiculopathy, ulnar neuropathy, bilateral carpal tunnel syndrome, polyarthralgia, right knee pain, right IT band syndrome Neurological History: Reports: Concussion, Other (See Below) Other Neuro History: ulnar neuropathy Psychiatric History: Reports: Anxiety, Depression Endocrine/Metabolic History: Reports: Obesity/BMI 30+ Hematologic History: Reports: Anemia Immunologic History: Reports: None Oncologic (Cancer) History: Reports: Other (See Below) Other Oncologic History: pre-cancer on colon polyp. Dermatologic History: Reports: None - Infectious Disease History Infectious Disease History: Reports: Chicken Pox, Influenza Other Infectious Disease History: recent trip to [facility], [place] - Past Surgical History Head Surgeries/Procedures: Reports: None HEENT Surgical History: Reports: Oral Surgery Other HEENT Surgeries/Procedures: teeth removed Cardiovascular Surgical History: Reports: None Respiratory Surgical History: Reports: None GI Surgical History: Reports: Appendectomy, Cholecystectomy, Colonoscopy, EGD, Hernia, Abdominal Other GI Surgeries/Procedures: scar tissure removed from stomach, lysis of adhesions Female Surgical History: Reports: Hysterectomy, Tubal Ligation Endocrine Surgical History: Reports: None Neurological Surgical History: Reports: None Musculoskeletal Surgical History: Reports: Arthroscopic Knee, Shoulder Surgery, Other (See Below) Other Musculoskeletal Surgeries/Procedures:: left shoulder video arthroscopy, left bicep tenotomy Oncologic Surgical History: Reports: None Social & Family History - Family History Family Medical History: No Pertinent Family History - Tobacco Use Tobacco Use Status *Q: Never Tobacco User Second Hand Smoke Exposure: No - Caffeine Use Caffeine Use: Reports: Coffee - Recreational Drug Use Recreational Drug Use: No - Living Situation & Occupation Living situation: Reports: (), with Family (Grandson) Occupation: Employed ([employer]) ED ROS GENERAL - Review of Systems Review Of Systems: See Below Constitutional: Reports: Diaphoresis (gone). Denies: Fever, Chills HEENT: Reports: No Symptoms Respiratory: Reports: Shortness of Breath. Denies: Pleuritic Chest Pain, Cough Cardiovascular: Reports: Chest Pain GI/Abdominal: Denies: Abdominal Pain, Diarrhea, Nausea, Vomiting Musculoskeletal: Denies: Neck Pain, Shoulder Pain, Arm Pain Skin: Reports: Pruritis. Denies: Rash Neurological: Reports: Dizziness ED EXAM, GI/ABD - Physical Exam Exam: See Below General Appearance: Alert, Anxious (mild) Eyes: Bilateral: Normal Appearance Nose: Normal Inspection Throat/Mouth: Normal Inspection Head: Atraumatic Neck: Supple Respiratory/Chest: Respiratory Distress (moderate tachypnea). No: Rales, Rhonchi, Wheezing Cardiovascular: Tachycardia GI/Abdominal Exam: Soft, Tender (mild tenderness upper mid abd). No: Guarding Extremities: No: Pedal Edema, Leg Pain, Increased Warmth, Redness Neurological: Alert, Oriented, No Motor/Sensory Deficits Skin Exam: Warm, Dry, Normal Color, No Rash #1 Interpretation EKG Date: 06/24/20 Rhythm: Other (sinus tach, rate 108) [place]: Normal P-Wave: Present QRS: Other (q waves lead III) ST-T: Depressed (Mild St depressionV3-V6) Course - Re-Assessments/Exams Free Text/Narrative Re-Assessment/Exam: 06/24/20 19:04. She did not get any relief from the GI cocktail. She states her anterior chest still feels very tight. Her trop has come back very mildly elevated at .058. Her BP was more high on arrival but still moderately high at 167/92. She is quite dehydrated with anion gap of 19, CO2 of 22. Her WBC is 21,000. Her CXR is normal. Her glucose is elevated at 225, K+ is 3.0. Will order a magnesium. Have ordered a NS bolus, pepcid 20 mg IV, benadryl 25 mg IV. With no relief from the GI cocktail, continue chest pain and anxiety have ordered ativan 0.5 mg IV and nitro drop. She needs a repeat 3 hr trop. It is change of shift, will transfer care to Dr Umanzor. Departure - Departure Disposition: Home, Self-Care 01 Clinical Impression: Allergy to intravenous contrast media, Non-cardiac chest pain - Discharge Information Instructions: Allergies, Adult, [id number], Nonspecific Chest Pain, Adult, [id number] Referrals: Brionna Mak, NITROGEN OPERATOR [Primary Care Provider] - Forms: ED Department Discharge Additional Instructions: Evaluation in the emergency room tonight in regards to development of central chest discomfort and heaviness in the chest after experiencing a likely allergic response to IV contrast dye in spite of prophylactic medication to try and prevent allergic reaction. Apparently you were given oral steroids and Benadryl prior to the CT scan of the abdomen pelvis which was done at [facility] earlier today. The results of those studies are not available to me at this time. Initial evaluation showed slight elevation of your cardiac marker called troponin at 0.058 with normal being up to 0.56. ECG was essentially normal showing no evidence of ischemic change or heart attack. You were monitored at the request of Dr. Hayden who is seen you initially and repeat cardiac markers were done as well as a repeat ECG and they reveal no significant changes. No clinical evidence of heart related illness today. I suspect you may have received quite a bit of fluids in an effort to wash the contrast out of your bloodstream which may have caused part of your symptom complex today as well. May use Benadryl 50 mg every 6 hours if needed if you develop any further itching etc. Follow-up with personal care physician in regards to the CT of the abdomen and pelvis findings as planned. Sepsis Event Note (ED) - Evaluation Sepsis Screening Result: No Definite Risk <Paulie Umanzor Annabelle - Last Filed: 06/24/20 22:45> #2 Interpretation EKG Date: 06/24/20 Time: 21:40 Rhythm: NSR Rate (Beats/Min): 76 [place]: Normal P-Wave: Present QRS: Other (Decreased voltage throughout the precordial leads. Tall R wave in lead I suggest left ventricular hypertrophy pattern.) ST-T: Other QT: Prolonged (Diffuse delayed repolarization pattern. Markedly prolonged) EKG Interpretation Comments: Abnormal ECG with no signs of ischemia. Course - Vital Signs Last Recorded V/S: Last Vital Signs Temp 36.4 C 06/24/20 22:39 Pulse 92 06/24/20 22:39 Resp 16 06/24/20 22:39 BP 114/75 06/24/20 22:39 Pulse Ox 95 06/24/20 22:39 - Orders/Labs/Meds Orders: Active Orders 24 hr Category Date Time Status EKG 12 Lead [EKG Documentation Completion] [RC] STAT Care 06/24/20 17:44 Active Peripheral IV Care [RC] . DIRECTED Care 06/24/20 17:44 Active Nitroglycerin/D5W [Nitroglycerin 25 MG/D5W 250 ML] Med 06/24/20 19:00 Active 25 mg in 250 ml IV TITRATE Sodium Chloride 0.9% [Normal Saline] 1,000 ml Med 06/24/20 19:30 Active IV ASDIRECTED Sodium Chloride 0.9% [Normal Saline] 1,000 ml Med 06/24/20 18:30 Active IV ONETIME Sodium Chloride 0.9% [Saline Flush] Med 06/24/20 17:44 Active 10 ml FLUSH ASDIRECTED PRN Peripheral IV Insertion Adult [OM.PC] Stat Oth 06/24/20 17:44 Ordered Medication Orders Sodium Chloride (Normal Saline) 1,000 mls @ 999 mls/hr IV ONETIME NICHELLE Last Infusion: 06/24/20 19:19 Dose: 100 mls/hr Documented by: Admin: 06/24/20 18:38 Dose: 999 mls/hr Documented by: RADHA Nitroglycerin/Dextrose (Nitroglycerin 25 Mg/D5w 250 Ml) 25 mg in 250 mls @ 3 mls/hr IV TITRATE NICHELLE; Protocol Last Admin: 06/24/20 19:18 Dose: 5 mcg/min, 3 mls/hr Documented by: RADHA Sodium Chloride (Normal Saline) 1,000 mls @ 250 mls/hr IV ASDIRECTED NICHELLE Sodium Chloride (Saline Flush) 10 ml FLUSH ASDIRECTED PRN PRN Reason: Keep Vein Open Last Admin: 06/24/20 17:57 Dose: 10 ml Documented by: RADHA Labs: Laboratory Tests 06/24/20 06/24/20 06/24/20 Range/Units 17:45 17:45 17:45 WBC 21.48 H (3.98-10.04) K/mm3 RBC 4.69 (3.98-5.22) M/mm3 Hgb 13.9 (11.2-15.7) gm/dl Hct 41.6 (34.1-44.9) % MCV 88.7 (79.4-94.8) fl MCH 29.6 (25.6-32.2) pg MCHC 33.4 (32.2-35.5) g/dl RDW Std Deviation 42.8 (36.4-46.3) fL Plt Count 473 H (182-369) K/mm3 MPV 9.7 (9.4-12.3) fl Neut % (Auto) 83.5 H (34.0-71.1) % Lymph % (Auto) 8.8 L (19.3-51.7) % [place] % (Auto) 7.3 (4.7-12.5) % Eos % (Auto) 0 L (0.7-5.8) Baso % (Auto) 0.0 L (0.1-1.2) % Neut # (Auto) 17.94 H (1.56-6.13) K/mm3 Lymph # (Auto) 1.88 (1.18-3.74) K/mm3 [place] # (Auto) 1.56 H (0.24-0.36) K/mm3 Eos # (Auto) 0.00 L (0.04-0.36) K/mm3 Baso # (Auto) 0.01 (0.01-0.08) K/mm3 Manual Slide Review Abnormal smear PT (9.7-12.0) SECONDS INR APTT (21.7-31.4) SECONDS D-Dimer, Quantitative (0.19-0.50) mg/L Sodium 140 (136-145) mEq/L Potassium 3.0 L (3.5-5.1) mEq/L Chloride 102 (98-107) mEq/L Carbon Dioxide 22 (21-32) mEq/L Anion Gap 19.0 H (5-15) BUN 19 H (7-18) mg/dL Creatinine 1.1 H (0.55-1.02) mg/dL Est Cr Clr Drug Dosing 43.46 mL/min Estimated GFR (MDRD) 52 (>60) mL/min BUN/Creatinine Ratio 17.3 (14-18) Glucose 225 H (74-106) mg/dL Hemoglobin A1c ( - 5.6) % Calcium 9.3 (8.5-10.1) mg/dL Magnesium 1.8 (1.8-2.4) mg/dl Total Bilirubin 0.3 (0.2-1.0) mg/dL AST 19 (15-37) U/L ALT 59 (14-59) U/L Alkaline Phosphatase 160 H (46-116) U/L CK-MB (CK-2) (0-3.6) ng/ml Troponin I 0.058 H* (0.00-0.056) ng/mL NT-Pro-B Natriuret Pep (0-125) pg/mL Total Protein 7.7 (6.4-8.2) g/dl Albumin 3.6 (3.4-5.0) g/dl Globulin 4.1 gm/dL Albumin/Globulin Ratio 0.9 L (1-2) Urine Color (Yellow) Urine Appearance (Clear) Urine pH (5.0-8.0) Ur Specific [place] (1.005-1.030) Urine Protein (Negative) Urine Glucose (UA) (Negative) Urine Ketones (Negative) Urine Occult Blood (Negative) Urine Nitrite (Negative) Urine Bilirubin (Negative) Urine Urobilinogen (0.2-1.0) Ur Leukocyte Esterase (Negative) SARS-CoV-2 RNA (ANAMARIA) (NEGATIVE) 06/24/20 06/24/20 06/24/20 Range/Units 17:45 17:45 17:45 WBC (3.98-10.04) K/mm3 RBC (3.98-5.22) M/mm3 Hgb (11.2-15.7) gm/dl Hct (34.1-44.9) % MCV (79.4-94.8) fl MCH (25.6-32.2) pg MCHC (32.2-35.5) g/dl RDW Std Deviation (36.4-46.3) fL Plt Count (182-369) K/mm3 MPV (9.4-12.3) fl Neut % (Auto) (34.0-71.1) % Lymph % (Auto) (19.3-51.7) % [place] % (Auto) (4.7-12.5) % Eos % (Auto) (0.7-5.8) Baso % (Auto) (0.1-1.2) % Neut # (Auto) (1.56-6.13) K/mm3 Lymph # (Auto) (1.18-3.74) K/mm3 [place] # (Auto) (0.24-0.36) K/mm3 Eos # (Auto) (0.04-0.36) K/mm3 Baso # (Auto) (0.01-0.08) K/mm3 Manual Slide Review PT 11.0 (9.7-12.0) SECONDS INR 1.03 APTT 25.1 (21.7-31.4) SECONDS D-Dimer, Quantitative (0.19-0.50) mg/L Sodium (136-145) mEq/L Potassium (3.5-5.1) mEq/L Chloride (98-107) mEq/L Carbon Dioxide (21-32) mEq/L Anion Gap (5-15) BUN (7-18) mg/dL Creatinine (0.55-1.02) mg/dL Est Cr Clr Drug Dosing mL/min Estimated GFR (MDRD) (>60) mL/min BUN/Creatinine Ratio (14-18) Glucose (74-106) mg/dL Hemoglobin A1c 5.6 ( - 5.6) % Calcium (8.5-10.1) mg/dL Magnesium (1.8-2.4) mg/dl Total Bilirubin (0.2-1.0) mg/dL AST (15-37) U/L ALT (14-59) U/L Alkaline Phosphatase (46-116) U/L CK-MB (CK-2) (0-3.6) ng/ml Troponin I (0.00-0.056) ng/mL NT-Pro-B Natriuret Pep 155 H (0-125) pg/mL Total Protein (6.4-8.2) g/dl Albumin (3.4-5.0) g/dl Globulin gm/dL Albumin/Globulin Ratio (1-2) Urine Color (Yellow) Urine Appearance (Clear) Urine pH (5.0-8.0) Ur Specific [place] (1.005-1.030) Urine Protein (Negative) Urine Glucose (UA) (Negative) Urine Ketones (Negative) Urine Occult Blood (Negative) Urine Nitrite (Negative) Urine Bilirubin (Negative) Urine Urobilinogen (0.2-1.0) Ur Leukocyte Esterase (Negative) SARS-CoV-2 RNA (ANAMARIA) (NEGATIVE) 06/24/20 06/24/20 06/24/20 Range/Units 17:45 18:50 20:21 WBC (3.98-10.04) K/mm3 RBC (3.98-5.22) M/mm3 Hgb (11.2-15.7) gm/dl Hct (34.1-44.9) % MCV (79.4-94.8) fl MCH (25.6-32.2) pg MCHC (32.2-35.5) g/dl RDW Std Deviation (36.4-46.3) fL Plt Count (182-369) K/mm3 MPV (9.4-12.3) fl Neut % (Auto) (34.0-71.1) % Lymph % (Auto) (19.3-51.7) % [place] % (Auto) (4.7-12.5) % Eos % (Auto) (0.7-5.8) Baso % (Auto) (0.1-1.2) % Neut # (Auto) (1.56-6.13) K/mm3 Lymph # (Auto) (1.18-3.74) K/mm3 [place] # (Auto) (0.24-0.36) K/mm3 Eos # (Auto) (0.04-0.36) K/mm3 Baso # (Auto) (0.01-0.08) K/mm3 Manual Slide Review PT (9.7-12.0) SECONDS INR APTT (21.7-31.4) SECONDS D-Dimer, Quantitative 0.23 (0.19-0.50) mg/L Sodium (136-145) mEq/L Potassium (3.5-5.1) mEq/L Chloride (98-107) mEq/L Carbon Dioxide (21-32) mEq/L Anion Gap (5-15) BUN (7-18) mg/dL Creatinine (0.55-1.02) mg/dL Est Cr Clr Drug Dosing mL/min Estimated GFR (MDRD) (>60) mL/min BUN/Creatinine Ratio (14-18) Glucose (74-106) mg/dL Hemoglobin A1c ( - 5.6) % Calcium (8.5-10.1) mg/dL Magnesium (1.8-2.4) mg/dl Total Bilirubin (0.2-1.0) mg/dL AST (15-37) U/L ALT (14-59) U/L Alkaline Phosphatase (46-116) U/L CK-MB (CK-2) (0-3.6) ng/ml Troponin I (0.00-0.056) ng/mL NT-Pro-B Natriuret Pep (0-125) pg/mL Total Protein (6.4-8.2) g/dl Albumin (3.4-5.0) g/dl Globulin gm/dL Albumin/Globulin Ratio (1-2) Urine Color Yellow (Yellow) Urine Appearance Clear (Clear) Urine pH 7.0 (5.0-8.0) Ur Specific [place] 1.015 (1.005-1.030) Urine Protein Negative (Negative) Urine Glucose (UA) Negative (Negative) Urine Ketones Negative (Negative) Urine Occult Blood Negative (Negative) Urine Nitrite Negative (Negative) Urine Bilirubin Negative (Negative) Urine Urobilinogen 0.2 (0.2-1.0) Ur Leukocyte Esterase Negative (Negative) SARS-CoV-2 RNA (ANAMARIA) Negative (NEGATIVE) 06/24/20 Range/Units 21:03 WBC (3.98-10.04) K/mm3 RBC (3.98-5.22) M/mm3 Hgb (11.2-15.7) gm/dl Hct (34.1-44.9) % MCV (79.4-94.8) fl MCH (25.6-32.2) pg MCHC (32.2-35.5) g/dl RDW Std Deviation (36.4-46.3) fL Plt Count (182-369) K/mm3 MPV (9.4-12.3) fl Neut % (Auto) (34.0-71.1) % Lymph % (Auto) (19.3-51.7) % [place] % (Auto) (4.7-12.5) % Eos % (Auto) (0.7-5.8) Baso % (Auto) (0.1-1.2) % Neut # (Auto) (1.56-6.13) K/mm3 Lymph # (Auto) (1.18-3.74) K/mm3 [place] # (Auto) (0.24-0.36) K/mm3 Eos # (Auto) (0.04-0.36) K/mm3 Baso # (Auto) (0.01-0.08) K/mm3 Manual Slide Review PT (9.7-12.0) SECONDS INR APTT (21.7-31.4) SECONDS D-Dimer, Quantitative (0.19-0.50) mg/L Sodium (136-145) mEq/L Potassium (3.5-5.1) mEq/L Chloride (98-107) mEq/L Carbon Dioxide (21-32) mEq/L Anion Gap (5-15) BUN (7-18) mg/dL Creatinine (0.55-1.02) mg/dL Est Cr Clr Drug Dosing mL/min Estimated GFR (MDRD) (>60) mL/min BUN/Creatinine Ratio (14-18) Glucose (74-106) mg/dL Hemoglobin A1c ( - 5.6) % Calcium (8.5-10.1) mg/dL Magnesium (1.8-2.4) mg/dl Total Bilirubin (0.2-1.0) mg/dL AST (15-37) U/L ALT (14-59) U/L Alkaline Phosphatase (46-116) U/L CK-MB (CK-2) 1.0 (0-3.6) ng/ml Troponin I 0.081 H* (0.00-0.056) ng/mL NT-Pro-B Natriuret Pep (0-125) pg/mL Total Protein (6.4-8.2) g/dl Albumin (3.4-5.0) g/dl Globulin gm/dL Albumin/Globulin Ratio (1-2) Urine Color (Yellow) Urine Appearance (Clear) Urine pH (5.0-8.0) Ur Specific [place] (1.005-1.030) Urine Protein (Negative) Urine Glucose (UA) (Negative) Urine Ketones (Negative) Urine Occult Blood (Negative) Urine Nitrite (Negative) Urine Bilirubin (Negative) Urine Urobilinogen (0.2-1.0) Ur Leukocyte Esterase (Negative) SARS-CoV-2 RNA (ANAMARIA) (NEGATIVE) Meds: Medications Generic Name Dose Route Start Last Admin Trade Name Freq PRN Reason Stop Dose Admin Sodium Chloride 1,000 mls @ 999 mls/hr 06/24/20 18:30 06/24/20 19:19 Normal Saline IV 100 mls/hr ONETIME NICHELLE Infusion Nitroglycerin/Dextrose 25 mg in 250 mls @ 3 mls/hr 06/24/20 19:00 06/24/20 19:18 Nitroglycerin 25 Mg/D5w 250 Ml IV 5 mcg/min TITRATE NICHELLE 3 mls/hr Administration Protocol 5 MCG/MIN Sodium Chloride 1,000 mls @ 250 mls/hr 06/24/20 19:30 Normal Saline IV ASDIRECTED NICHELLE Sodium Chloride 10 ml 06/24/20 17:44 06/24/20 17:57 Saline Flush FLUSH 10 ml ASDIRECTED PRN Administration Keep Vein Open Discontinued Medications Generic Name Dose Route Start Last Admin Trade Name Freq PRN Reason Stop Dose Admin Acetaminophen 975 mg 06/24/20 20:10 06/24/20 20:38 Tylenol PO 06/24/20 20:11 975 mg ONETIME ONE Administration Aspirin 324 mg 06/24/20 19:18 06/24/20 19:30 Aspirin PO 06/24/20 19:19 324 mg ONETIME ONE Administration Al Hydroxide/Mg Hydroxide 30 0 ml 06/24/20 18:24 06/24/20 18:38 ml/ Lidocaine HCl 15 ml PO 06/24/20 18:25 45 ml ONETIME ONE Administration Diphenhydramine HCl 25 mg 06/24/20 18:36 06/24/20 18:43 Benadryl IVPUSH 06/24/20 18:37 25 mg ONETIME ONE Administration Famotidine 20 mg 06/24/20 18:31 06/24/20 18:44 Pepcid IVPUSH 06/24/20 18:32 20 mg ONETIME ONE Administration Lorazepam 0.5 mg 06/24/20 18:57 06/24/20 19:19 Ativan IVPUSH 06/24/20 18:58 0.5 mg ONETIME ONE Administration - Re-Assessments/Exams Free Text/Narrative Re-Assessment/Exam: 06/24/20 19:25: Care has been assumed from Dr. Hayden as it is change of shift. I have reviewed the patient's labs and identified that her elevated white blood cell count is likely from steroids administered orally prior to her CT of the abdomen and pelvis done earlier today. She has no fever. Chest x-ray done reveals heart size and mediastinum to be normal slightly tortuous aorta appreciated. Lungs show no definite acute parenchymal changes. Bony structures are without any acute abnormalities. On my evaluation of the ECG she is showing a sinus tachycardia at 108/min. She has a repolarization abnormality most notable from V3 to V6. It is also present in lead I and aVL. Questionable slight ST segment depression in aVL. No definitive signs of ischemia. QTC is prolonged at 494. I have thus put in some other orders to check on her heart. She will have repeat cardiac markers at 2045 hrs. tonight since initial troponin returned slightly above normal at 0.58. Glucose was elevated at 225. Dr. Hayden is placed on a nitroglycerin drip at 10 mcg/min due to hypertension. She is also be given 4 baby aspirin chewed. Patient got no relief from GI cocktail. Of note CT scan of her abdomen and pelvis was done at [facility] and is not available to us for reading. Blood pressure is currently 152/98. Heart rate 102 and sinus sats are 92 to 94% room air. 06/24/20 20:10 On re examination of the patient. She denies any further itching or pruritus. Still has some swelling both upper and lower eyelids bilaterally. Chest pressure discomfort is now gone. No burping or belching. She appears very tired. She has a headache from the nitroglycerin drip. We will give her Tylenol nine seven 5 mg p.o. for headache relief. He does not believe that her chest pain is any less on the nitroglycerin drip. 06/24/20 21:10 PT is 11.0 with an INR of 1.03. PTT is 25.1. D-dimer is 0.23. Serum potassium is low at 3.0. Anion gap was 19.0 patient has had 2 L of IV fluid. 06/24/20 21:57 CK-MB fraction is normal at 1.0. Repeat troponin is slightly more elevated at 0.081 compared to 0.058 on initial evaluation. I Expect stress reaction from allergic response the cause of her mildly elevated troponin.. Her enzymes would be much higher if she was experience any kind of infarction. BNP is slightly elevated at 155. I have discussed the findings with the patient. She has a slight residual chest discomfort. Plan will be to discontinue the nitroglycerin drip and then get her up walking in the hallway. It appears that this is a stress reaction from allergic reaction versus any significant myocardial injury. 06/24/20 22:43 and walked in the hallway fairly vigorously around the ED department x3 without any worsening of central chest discomfort. She will therefore be discharged to home follow-up with primary care provider as planned in regards to the results of her CT abdomen and pelvis done earlier today. Departure - Departure Time of Disposition: 22:25 Condition: Fair - Discharge Information *PRESCRIPTION DRUG MONITORING PROGRAM REVIEWED*: Not Applicable *COPY OF PRESCRIPTION DRUG MONITORING REPORT IN PATIENT MAGGIE: Not Applicable Sepsis Event Note (ED) - Focused Exam Vital Signs: Vital Signs Temp Pulse Resp BP Pulse Ox 06/24/20 22:39 36.4 C 92 16 114/75 95 06/24/20 17:50 36.2 C 108 H 28 H 158/101 H 94 L 06/24/20 17:36 36.4 C 118 H 24 H 158/101 H 96 - My Orders Last 24 Hours: My Active Orders 06/24/20 19:30 Sodium Chloride 0.9% [Normal Saline] 1,000 ml IV ASDIRECTED - Assessment/Plan Last 24 Hours: My Active Orders 06/24/20 19:30 Sodium Chloride 0.9% [Normal Saline] 1,000 ml IV ASDIRECTED
[2020-06-24] MEDS ORDERED: Alum Hydrox/Mag Hydrox/Simeth 30 ML, Lidocaine 2% 15 ML PO ONE ×2 (18:24)
--- NOTE | 2020-06-24 18:24 | CR ---
Chest: Frontal view of the chest was obtained. Comparison: Prior chest x-ray of 05/23/20. Heart size and mediastinum are normal. Lungs show no definite acute parenchymal change. Bony structures are without acute abnormality. Impression: 1. Nothing acute is seen on frontal chest x-ray. Diagnostic code #1
[2020-06-24] MEDS ORDERED: Sodium Chloride 0.9% 1,000 ML IV SCH ×2 (18:30→19:30)
[2020-06-24] MEDS ORDERED: Famotidine 20 MG/2 ML SDV IVPUSH ONE (18:31)
[2020-06-24] MEDS ORDERED: diphenhydrAMINE 50 MG/ML SDV IVPUSH ONE (18:36)
[2020-06-24] MEDS ORDERED: LORazepam 2 MG/ML SDV IVPUSH ONE (18:57)
[2020-06-24] MEDS ORDERED: Nitroglycerin/D5W 25 MG/250 ML BOTTLE IV SCH (19:00)
[2020-06-24] MEDS ORDERED: Aspirin 81 MG Tab.Chew PO ONE (19:18)
[2020-06-24 19:49] LABS: HEMOGLOBIN A1C 5.6 %
[2020-06-24] MEDS ORDERED: Acetaminophen 325 MG Tab PO ONE (20:10)
[2020-06-24 22:41] VITALS: BP 114/75; PULSE 92
== END 2020-06-24 22:45 | disposition home or self-care (01) ==
LOC: JD.ED 17:30
DX: R07.89 Other chest pain (principal); R06.02 Shortness of breath; R61 Generalized hyperhidrosis; R42 Dizziness and giddiness; T50.8X5A Adverse effect of diagnostic agents, initial encounter; R00.0 Tachycardia, unspecified; I10 Essential (primary) hypertension; E78.00 Pure hypercholesterolemia, unspecified; I25.2 Old myocardial infarction; J45.909 Unspecified asthma, uncomplicated; K21.9 Gastro-esophageal reflux disease without esophagitis; R94.31 Abnormal electrocardiogram [ECG] [EKG]; R79.1 Abnormal coagulation profile; E66.9 Obesity, unspecified; Z68.41 Body mass index [BMI] 40.0-44.9, adult; Z91.041 Radiographic dye allergy status; Z88.8 Allergy status to other drugs, medicaments and biological substances; Z79.899 Other long term (current) drug therapy; Z20.822 Contact with and (suspected) exposure to COVID-19
CPT/HCPCS: 36415; 71045; 80053; 81003; 82553; 83036; 83735; 83880; 84484; 85025; 85379; 85610; 85730; 87635; 93005; 96365; 96366; 96375; 99285; A9270; J1200; J2060; J3490; J7030; 93010; 99284; U0002

== ENCOUNTER 2020-08-30 12:40 | Emergency (ER) | payer BC ==
[2020-08-30 12:51] VITALS: BP 159/90; PULSE 99
[2020-08-30] MEDS ORDERED: Sodium Chloride 0.9% 10 ML Syringe FLUSH PRN (13:15)
[2020-08-30] MEDS ORDERED: Ketorolac 30 MG/ML SDV IVPUSH ONE (13:16)
[2020-08-30] MEDS ORDERED: Sodium Chloride 0.9% 1,000 ML IV ONE (13:16)
--- NOTE | 2020-08-30 13:23 | EDM.PDOC ---
ED HPI GENERAL MEDICAL PROBLEM - General Chief Complaint: Respiratory Problem Stated Complaint: SORE THROAT/COUGH Time Seen by Provider: 08/30/20 13:03 Source of Information: Reports: Patient, RN Notes Reviewed History Limitations: Reports: No Limitations - History of Present Illness INITIAL COMMENTS - FREE TEXT/NARRATIVE: Patient is a 50-year-old female who presents to the ER for her upper respiratory symptoms. Patient notes that on Sunday, she developed a sore throat, cough. She notes that this has steadily been worsening since Sunday. She does note a change in the cough, where she is coughing up brown-tinged sputum, along with some blood-tinged sputum. She has had a pretty harsh dry unproductive cough otherwise. Notes that her throat hurts so much, that she is not been able to eat or drink much over the weekend due to the pain. She is taken Tylenol at home, this does not seem to relieve much of anything. Patient denies any fevers or chills, shortness of breath, nausea/vomiting/diarrhea. She does not think she has been around anyone that is been sick. She is complaining of some nasal congestion. Primary care provider is Brionna Mak, she notes that she try to get into clinic today however she was unable to because her provider schedule was full. O2 sats at time of triage are 98% on room air. Throat Pain Score (Numeric/FACES): 6 - Related Data Allergies Allergy/AdvReac Type Severity Reaction Status Date / Time Iodinated Contrast Media AdvReac Severe Shaking Verified 08/30/20 12:50 iopamidol [From Isovue-M] AdvReac Severe Shaking Verified 08/30/20 12:50 lisinopril AdvReac Severe Cough Verified 08/30/20 12:50 topiramate [From Topamax] AdvReac Severe Confusion Verified 08/30/20 12:50 Home Meds: Home Meds atorvaSTATin [Lipitor] 20 mg PO DAILY 04/20/15 [History] Ondansetron [Zofran ODT] 4 mg PO Q4H PRN 01/23/16 [History] Albuterol Sulfate [Proventil Hfa] 2 puff INH Q6H PRN 10/07/19 [History] Esomeprazole Magnesium [Nexium] 40 mg PO DAILY 10/07/19 [History] Fluticasone/Vilanterol [Breo Ellipta 200-25 MCG Inhalation Kit] 1 puff INH DAILY 10/07/19 [History] Montelukast [Singulair] 10 mg PO DAILY 10/07/19 [History] Sucralfate [Carafate] 1 gm PO BID 10/07/19 [History] amLODIPine [Norvasc] 5 mg PO DAILY 10/07/19 [History] hydroCHLOROthiazide [Hydrochlorothiazide] 25 mg PO DAILY 10/07/19 [History] Atovaquone/Proguanil [Malarone 250-100 MG] 1 tab PO DAILY 03/30/20 [History] DULoxetine [Cymbalta] 60 mg PO DAILY 03/30/20 [History] Famotidine [Pepcid] 20 mg PO DAILY 03/30/20 [History] tiZANidine [Zanaflex] 4 mg PO Q8H PRN 03/30/20 [History] Cyclobenzaprine [Flexeril] 10 mg PO TID PRN #20 tab 05/23/20 [Rx] Amoxicillin 500 mg PO TID 10 Days #30 tab 08/30/20 [Rx] Aspirin [Halfprin] 81 mg PO DAILY 08/30/20 [History] Codeine/Promethazine [Phenergan with Codeine] 5 ml PO Q4HR PRN #120 ml 08/30/20 [Rx] Pantoprazole Sodium [Protonix] 40 mg PO DAILY 08/30/20 [History] Past Medical History HEENT History: Reports: Impaired Vision Other HEENT History: wears glasses Cardiovascular History: Reports: Angina, High Cholesterol, Hypertension, [place] Respiratory History: Reports: Asthma, Sleep Apnea, SOB Gastrointestinal History: Reports: Colon Polyp, Gastritis, GERD Other Gastrointestinal History: Precancerous colon, chronic abdominal pain, esophagitis, colon polyp, diagnostic laparoscopy Genitourinary History: Reports: Renal Calculus, Retention, Urinary, UTI, Recurrent 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: , Other (See Below) Other PACKAGING DESIGNER History: ovarian sx Musculoskeletal History: Reports: Fracture, Other (See Below) Other Musculoskeletal History: lumbar radiculopathy, ulnar neuropathy, bilateral carpal tunnel syndrome, polyarthralgia, right knee pain, right IT band syndrome Neurological History: Reports: Concussion, Other (See Below) Other Neuro History: ulnar neuropathy Psychiatric History: Reports: Anxiety, Depression Endocrine/Metabolic History: Reports: Obesity/BMI 30+ Hematologic History: Reports: Anemia Immunologic History: Reports: None Oncologic (Cancer) History: Reports: Other (See Below) Other Oncologic History: pre-cancer on colon polyp. Dermatologic History: Reports: None - Infectious Disease History Infectious Disease History: Reports: Chicken Pox Other Infectious Disease History: recent trip to [facility], [facility] - Past Surgical History HEENT Surgical History: Reports: Oral Surgery Other HEENT Surgeries/Procedures: teeth removed GI Surgical History: Reports: Appendectomy, Cholecystectomy, Colonoscopy, EGD, Hernia, Abdominal Other GI Surgeries/Procedures: scar tissure removed from stomach, lysis of ad hesions Female Surgical History: Reports: Hysterectomy, Tubal Ligation Musculoskeletal Surgical History: Reports: Arthroscopic Knee, Shoulder Surgery, Other (See Below) Other Musculoskeletal Surgeries/Procedures:: left shoulder video arthroscopy, left bicep tenotomy Social & Family History - Family History Family Medical History: No Pertinent Family History - Tobacco Use Tobacco Use Status *Q: Never Tobacco User - Caffeine Use Caffeine Use: Reports: Coffee, Tea - Recreational Drug Use Recreational Drug Use: No - Living Situation & Occupation Living situation: Reports: (), with Family (Grandson) Occupation: Employed ([employer]) ED ROS GENERAL - Review of Systems Review Of Systems: Comprehensive ROS is negative, except as noted in HPI. ED EXAM, GENERAL - Physical Exam Exam: See Below Exam Limited By: No Limitations General Appearance: Alert, WD/WN, No Apparent Distress Eye Exam: Bilateral Eye: EOMI, Normal Inspection, PERRL Ears: Normal External Exam, Normal Canal, Hearing Grossly Normal, Normal TMs Nose: Normal Inspection, Normal Mucosa, No Blood Throat/Mouth: Normal Inspection, Normal Lips, Normal Teeth, Normal Gums, Normal Oropharynx, Normal Voice, No Airway Compromise Head: Atraumatic, Normocephalic Neck: Normal Inspection Respiratory/Chest: No Respiratory Distress, Lungs Clear, Normal Breath Sounds, No Accessory Muscle Use, Chest Non-Tender Cardiovascular: Normal Peripheral Pulses, Regular Rate, Rhythm, No Edema Peripheral Pulses: 2+: Radial (L), Radial (R) GI/Abdominal: Normal Bowel Sounds, Soft, Non-Tender, No Distention, No Mass Extremities: Normal Inspection, Normal Capillary Refill Neurological: Alert, Oriented, Normal Cognition, No Motor/Sensory Deficits Psychiatric: Normal Affect, Normal Mood Skin Exam: Warm, Intact, Normal Color, No Rash, Diaphoretic (Generalized) Course - Vital Signs Last Recorded V/S: Last Vital Signs Temp 96.1 F L 08/30/20 12:47 Pulse 99 08/30/20 12:47 Resp 20 08/30/20 12:47 BP 159/90 H 08/30/20 12:47 Pulse Ox 98 08/30/20 12:47 - Orders/Labs/Meds Orders: Active Orders 24 hr Category Date Time Status Peripheral IV Care [RC] . DIRECTED Care 08/30/20 13:15 Active Sodium Chloride 0.9% [Saline Flush] Med 08/30/20 13:15 Active 10 ml FLUSH ASDIRECTED PRN Peripheral IV Insertion Adult [OM.PC] Routine Oth 08/30/20 13:15 Ordered Medication Orders Sodium Chloride (Sodium Chloride 0.9% 10 Ml Syringe) 10 ml FLUSH ASDIRECTED PRN PRN Reason: Keep Vein Open Last Admin: 08/30/20 14:00 Dose: 10 ml Documented by: ANN Labs: Laboratory Tests 08/30/20 08/30/20 08/30/20 Range/Units 13:39 13:59 13:59 WBC 13.73 H (3.98-10.04) K/mm3 RBC 4.66 (3.98-5.22) M/mm3 Hgb 14.6 (11.2-15.7) gm/dl Hct 42.6 (34.1-44.9) % MCV 91.4 (79.4-94.8) fl MCH 31.3 (25.6-32.2) pg MCHC 34.3 (32.2-35.5) g/dl RDW Std Deviation 43.2 (36.4-46.3) fL Plt Count 333 D (182-369) K/mm3 MPV 9.8 (9.4-12.3) fl Neut % (Auto) 73.1 H (34.0-71.1) % Lymph % (Auto) 14.2 L (19.3-51.7) % [place] % (Auto) 10.0 (4.7-12.5) % Eos % (Auto) 2.1 (0.7-5.8) Baso % (Auto) 0.2 (0.1-1.2) % Neut # (Auto) 10.03 H (1.56-6.13) K/mm3 Lymph # (Auto) 1.95 (1.18-3.74) K/mm3 [place] # (Auto) 1.37 H (0.24-0.36) K/mm3 Eos # (Auto) 0.29 (0.04-0.36) K/mm3 Baso # (Auto) 0.03 (0.01-0.08) K/mm3 Manual Slide Review Normal smear Sodium 142 (136-145) mEq/L Potassium 3.7 (3.5-5.1) mEq/L Chloride 104 (98-107) mEq/L Carbon Dioxide 26 (21-32) mEq/L Anion Gap 15.7 H (5-15) BUN 22 H (7-18) mg/dL Creatinine 1.0 (0.55-1.02) mg/dL Est Cr Clr Drug Dosing 47.81 mL/min Estimated GFR (MDRD) 58 (>60) mL/min BUN/Creatinine Ratio 22.0 H (14-18) Glucose 93 (74-106) mg/dL Calcium 9.2 (8.5-10.1) mg/dL Total Bilirubin 0.7 (0.2-1.0) mg/dL AST 35 (15-37) U/L ALT 70 H (14-59) U/L Alkaline Phosphatase 234 H (46-116) U/L Total Protein 7.7 (6.4-8.2) g/dl Albumin 3.5 (3.4-5.0) g/dl Globulin 4.2 gm/dL Albumin/Globulin Ratio 0.8 L (1-2) Influenza Type A RNA Negative (NEGATIVE) Influenza Type B RNA Negative (NEGATIVE) SARS-CoV-2 RNA (ANAMARIA) Negative (NEGATIVE) Meds: Medications Generic Name Dose Route Start Last Admin Trade Name Freq PRN Reason Stop Dose Admin Sodium Chloride 10 ml 08/30/20 13:15 08/30/20 14:00 Sodium Chloride 0.9% 10 Ml Syringe FLUSH 10 ml ASDIRECTED PRN Administration Keep Vein Open Discontinued Medications Generic Name Dose Route Start Last Admin Trade Name Freq PRN Reason Stop Dose Admin Sodium Chloride 1,000 mls @ 999 mls/hr 08/30/20 13:16 08/30/20 14:01 Normal Saline IV 08/30/20 14:16 999 mls/hr ONETIME ONE Administration Ketorolac Tromethamine 30 mg 08/30/20 13:16 08/30/20 14:00 Ketorolac 30 Mg/Ml Sdv IVPUSH 08/30/20 13:17 30 mg ONETIME ONE Administration - Re-Assessments/Exams Free Text/Narrative Re-Assessment/Exam: 08/30/20 13:23 Patient presents to the ER for her cold-like symptoms, will get a CBC, CMP, and obtain a Covid swab for initial evaluation, patient's not been able to eat or drink much over the last few days, so we will give her some IV fluids, and IV Toradol for pain management, notes that she has had some muscle cramping as well. 08/30/20 14:53 Patient's laboratory evaluation has come back, white count is elevated at 13.73, with 78% neutrophils. Metabolic panel fairly unremarkable, she is slightly dehydrated patient's chest x-ray demonstrates no acute findings on the portable x-ray. Covid/flu screen were negative. Due to the patient having coughed up some colored phlegm, and having elevated white count we will go ahead and treat with amoxicillin 3 times daily for the next 10 days for respiratory illness. Departure - Departure Time of Disposition: 14:55 Disposition: Home, Self-Care 01 Condition: Good Clinical Impression: Bronchitis, Cough productive of yellow sputum - Discharge Information *PRESCRIPTION DRUG MONITORING PROGRAM REVIEWED*: No *COPY OF PRESCRIPTION DRUG MONITORING REPORT IN PATIENT MAGGIE: No Prescriptions: Amoxicillin 500 mg PO TID 10 Days #30 tab Codeine/Promethazine [Phenergan with Codeine] 5 ml PO Q4HR PRN #120 ml PRN Reason: Cough Instructions: Cough, Adult, [id number], Acute Bronchitis, Adult Referrals: Brionna Mak NP [Primary Care Provider] - Forms: ED Department Discharge, ED Return to Work/School Form Additional Instructions: You were seen in this ER today for your cough/upper respiratory symptoms. Your chest x-ray demonstrated no obvious signs of pneumonia however with your cough being productive of colored sputum, and your white count being slightly elevated, you will be treated with antibiotics for ongoing respiratory illness. Dosing will be 1 tablet 3 times a day for 10 days or until gone. Antibiotic can take up to 48 hours to start providing benefit, if you do not notice much change in your symptoms within 72 to 96 hours, recommend you seek care for reevaluation and further management. You were given a prescription for a stronger cough medicine, you will take 5 to 10 mL every 4-6 hours as needed for cough, please do not drive while using this medication as it can cause drowsiness. [facility] located near [facility]. Please increase oral fluid intake, you may try [id number] cough/cold medications as well to help provide relief of some of the symptoms. Follow-up with your regular care provider, sometime within the next week - 10 days just to make sure that your symptoms are getting better as expected. Please do not hesitate to return to the ER if your symptoms change or worsen Sepsis Event Note (ED) - Evaluation Sepsis Screening Result: No Definite Risk - Focused Exam Vital Signs: Vital Signs Temp Pulse Resp BP Pulse Ox 08/30/20 12:47 96.1 F L 99 20 159/90 H 98 - My Orders Last 24 Hours: My Active Orders 08/30/20 13:15 Peripheral IV Care [RC] . DIRECTED Sodium Chloride 0.9% [Saline Flush] 10 ml FLUSH ASDIRECTED PRN Peripheral IV Insertion Adult [OM.PC] Routine - Assessment/Plan Last 24 Hours: My Active Orders 08/30/20 13:15 Peripheral IV Care [RC] . DIRECTED Sodium Chloride 0.9% [Saline Flush] 10 ml FLUSH ASDIRECTED PRN Peripheral IV Insertion Adult [OM.PC] Routine
--- NOTE | 2020-08-30 13:53 | CR ---
Chest: Portable view of the chest was obtained. Comparison: Prior chest x-ray of 06/24/20. Heart size and mediastinum are within normal limits. Lungs are clear with no acute parenchymal change. Bony structures show nothing acute. Impression: 1. Nothing acute is seen on portable chest x-ray. 2. No change from previous study is seen. Diagnostic code #1
[2020-08-30 14:28] LABS: CORONAVIRUS COVID-19 NAA NEGATIVE (NEGATIVE)
== END 2020-08-30 15:31 | disposition home or self-care (01) ==
LOC: JD.ED 12:40
DX: J40 Bronchitis, not specified as acute or chronic (principal); D72.829 Elevated white blood cell count, unspecified; E78.00 Pure hypercholesterolemia, unspecified; I10 Essential (primary) hypertension; I25.2 Old myocardial infarction; K21.9 Gastro-esophageal reflux disease without esophagitis; E66.9 Obesity, unspecified; Z68.41 Body mass index [BMI] 40.0-44.9, adult; Z91.041 Radiographic dye allergy status; Z88.8 Allergy status to other drugs, medicaments and biological substances; Z79.82 Long term (current) use of aspirin; Z79.899 Other long term (current) drug therapy; Z20.822 Contact with and (suspected) exposure to COVID-19
CPT/HCPCS: 0240U; 36415; 71045; 80053; 85025; 96374; 99283; J1885; J7030

== ENCOUNTER 2020-11-09 21:10 | Emergency (ER) | payer BC ==
[2020-11-09 21:20] VITALS: BP 147/88; PULSE 84
[2020-11-09] MEDS ORDERED: Pantoprazole 40 MG Vial IVPUSH ONE (21:42)
[2020-11-09] MEDS: Sodium Chloride 0.9% 10 ML Syringe FLUSH PRN ×2 (21:54→22:48)
[2020-11-09] MEDS ORDERED: Iopamidol 612 MG/ML 150 ML Bottle IVPUSH ONE (22:45)
--- NOTE | 2020-11-09 23:43 | EDM.PDOC ---
ED HPI GENERAL MEDICAL PROBLEM - General Chief Complaint: Chest Pain Stated Complaint: CHEST PAIN/ STOMACH PAIN Time Seen by Provider: 11/09/20 21:18 Source of Information: Reports: Patient History Limitations: Reports: No Limitations - History of Present Illness INITIAL COMMENTS - FREE TEXT/NARRATIVE: The patient presents with chest pain and upper abdominal pain. This is an o ngoing problem. She has seen Dr Lawson and there is a problem with her esophagus and she has a hiatal hernia. She was supposed to get into [facility] for this but they are backed up so Dr Lawson is trying to get her into [place]. She says she cannot eat anything solid. When she drinks it will come back up and then go down. She has more pain the past couple of days. She has no fever, chills, cou gh, shortness of breath, nausea or vomiting. She has no history of heart disease. Onset: Gradual Duration: Day(s): Location: Reports: Chest, Abdomen Quality: Reports: Sharp Severity: Moderate Improves with: Reports: None Worsens with: Reports: None Associated Symptoms: Reports: Chest Pain. Denies: Cough, Fever/Chills, Headaches, Nausea/Vomiting, Shortness of Breath Epigastric Pain Score (Numeric/FACES): 7 - Related Data Allergies Allergy/AdvReac Type Severity Reaction Status Date / Time lisinopril AdvReac Severe Cough Verified 11/09/20 21:20 topiramate [From Topamax] AdvReac Severe Confusion Verified 11/09/20 21:20 Home Meds: Home Meds atorvaSTATin [Lipitor] 20 mg PO DAILY 04/20/15 [History] Ondansetron [Zofran ODT] 4 mg PO Q4H PRN 01/23/16 [History] Albuterol Sulfate [Proventil Hfa] 2 puff INH Q6H PRN 10/07/19 [History] Esomeprazole Magnesium [Nexium] 40 mg PO DAILY 10/07/19 [History] Fluticasone/Vilanterol [Breo Ellipta 200-25 MCG Inhalation Kit] 1 puff INH DAILY 10/07/19 [History] Montelukast [Singulair] 10 mg PO DAILY 10/07/19 [History] Sucralfate [Carafate] 1 gm PO BID 10/07/19 [History] amLODIPine [Norvasc] 5 mg PO DAILY 10/07/19 [History] hydroCHLOROthiazide [Hydrochlorothiazide] 25 mg PO DAILY 10/07/19 [History] Atovaquone/Proguanil [Malarone 250-100 MG] 1 tab PO DAILY 03/30/20 [History] DULoxetine [Cymbalta] 60 mg PO DAILY 03/30/20 [History] Famotidine [Pepcid] 20 mg PO DAILY 03/30/20 [History] tiZANidine [Zanaflex] 4 mg PO Q8H PRN 03/30/20 [History] Cyclobenzaprine [Flexeril] 10 mg PO TID PRN #20 tab 05/23/20 [Rx] Amoxicillin 500 mg PO TID 10 Days #30 tab 08/30/20 [Rx] Aspirin [Halfprin] 81 mg PO DAILY 08/30/20 [History] Codeine/Promethazine [Phenergan with Codeine] 5 ml PO Q4HR PRN #120 ml 08/30/20 [Rx] Pantoprazole Sodium [Protonix] 40 mg PO DAILY 08/30/20 [History] Past Medical History HEENT History: Reports: Impaired Vision Other HEENT History: wears glasses Cardiovascular History: Reports: Angina, High Cholesterol, Hypertension, [place] Respiratory History: Reports: Asthma, Sleep Apnea, SOB Gastrointestinal History: Reports: Colon Polyp, Gastritis, GERD Other Gastrointestinal History: Precancerous colon, chronic abdominal pain, esophagitis, colon polyp, diagnostic laparoscopy Genitourinary History: Reports: Renal Calculus, Retention, Urinary, UTI, Recurrent [employer]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: Reports: , Other (See Below) 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: ovarian sx Musculoskeletal History: Reports: Fracture, Other (See Below) Other Musculoskeletal History: lumbar radiculopathy, ulnar neuropathy, bilateral carpal tunnel syndrome, polyarthralgia, right knee pain, right IT band syndrome Neurological History: Reports: Concussion, Other (See Below) Other Neuro History: ulnar neuropathy Psychiatric History: Reports: Anxiety, Depression Endocrine/Metabolic History: Reports: Obesity/BMI 30+ Hematologic History: Reports: Anemia Immunologic History: Reports: None Oncologic (Cancer) History: Reports: Other (See Below) Other Oncologic History: pre-cancer on colon polyp. Dermatologic History: Reports: None - Infectious Disease History Infectious Disease History: Reports: Chicken Pox Other Infectious Disease History: recent trip to [facility] - Past Surgical History Head Surgeries/Procedures: Reports: None HEENT Surgical History: Reports: Oral Surgery Other HEENT Surgeries/Procedures: teeth removed Cardiovascular Surgical History: Reports: None Respiratory Surgical History: Reports: None GI Surgical History: Reports: Appendectomy, Cholecystectomy, Colonoscopy, EGD, Hernia, Abdominal Other GI Surgeries/Procedures: scar tissure removed from stomach, lysis of adhesions Female Surgical History: Reports: Hysterectomy, Tubal Ligation Endocrine Surgical History: Reports: None Neurological Surgical History: Reports: None Musculoskeletal Surgical History: Reports: Arthroscopic Knee, Shoulder Surgery, Other (See Below) Other Musculoskeletal Surgeries/Procedures:: left shoulder video arthroscopy, left bicep tenotomy Oncologic Surgical History: Reports: None Social & Family History - Family History Family Medical History: No Pertinent Family History - Tobacco Use Tobacco Use Status *Q: Never Tobacco User Second Hand Smoke Exposure: No - Caffeine Use Caffeine Use: Reports: Coffee, Tea - Recreational Drug Use Recreational Drug Use: No - Living Situation & Occupation Living situation: Reports: (), with Family (Grandson) Occupation: Employed ([employer]) ED ROS GENERAL - Review of Systems Review Of Systems: See Below Constitutional: Reports: No Symptoms HEENT: Reports: No Symptoms Respiratory: Reports: No Symptoms Cardiovascular: Reports: Chest Pain Endocrine: Reports: No Symptoms GI/Abdominal: Reports: Abdominal Pain. Denies: Diarrhea, Nausea, Vomiting : Reports: No Symptoms Musculoskeletal: Reports: No Symptoms ED EXAM, GENERAL - Physical Exam Exam: See Below Exam Limited By: No Limitations General Appearance: Alert, No Apparent Distress Ears: Normal External Exam Nose: Normal Inspection Head: Atraumatic, Normocephalic Neck: Normal Inspection Respiratory/Chest: No Respiratory Distress, Lungs Clear, Normal Breath Sounds Cardiovascular: Regular Rate, Rhythm, No Edema, No Murmur GI/Abdominal: Soft, Non-Tender, No Organomegaly, No Mass Back Exam: Normal Inspection Extremities: Normal Inspection #1 Interpretation EKG Date: 11/09/20 Time: 21:20 Rhythm: NSR Rate (Beats/Min): 75 [place]: Normal P-Wave: Present QRS: Normal ST-T: Normal QT: Normal Course - Vital Signs Last Recorded V/S: Last Vital Signs Temp 96.9 F 11/09/20 21:17 Pulse 84 11/09/20 21:17 Resp 16 11/09/20 21:17 BP 147/88 H 11/09/20 21:17 Pulse Ox 95 11/09/20 21:17 - Orders/Labs/Meds Orders: Active Orders 24 hr Category Date Time Status Cardiac Monitoring [RC] . DIRECTED Care 11/09/20 21:40 Active EKG Documentation Completion [RC] STAT Care 11/09/20 21:41 Active Peripheral IV Care [RC] . DIRECTED Care 11/09/20 21:41 Active Chest Abdomen Pelvis w Cont [CT] Timed Exams 11/09/20 21:40 Taken Sodium Chloride 0.9% [Saline Flush] Med 11/09/20 21:40 Active 10 ml FLUSH ASDIRECTED PRN Peripheral IV Insertion Adult [OM.PC] Stat Oth 11/09/20 21:40 Ordered Medication Orders Sodium Chloride (Sodium Chloride 0.9% 10 Ml Syringe) 10 ml FLUSH ASDIRECTED PRN PRN Reason: Keep Vein Open Last Admin: 11/09/20 22:48 Dose: 10 ml Documented by: Admin: 11/09/20 21:54 Dose: 10 ml Documented by: PATRICIA Labs: Laboratory Tests 11/09/20 11/09/20 Range/Units 21:25 21:25 WBC 10.14 H (3.98-10.04) K/mm3 RBC 4.72 (3.98-5.22) M/mm3 Hgb 14.0 (11.2-15.7) gm/dl Hct 42.9 (34.1-44.9) % MCV 90.9 (79.4-94.8) fl MCH 29.7 (25.6-32.2) pg MCHC 32.6 (32.2-35.5) g/dl RDW Std Deviation 42.3 (36.4-46.3) fL Plt Count 393 H (182-369) K/mm3 MPV 10.5 (9.4-12.3) fl Neut % (Auto) 60.3 (34.0-71.1) % Lymph % (Auto) 27.6 (19.3-51.7) % [place] % (Auto) 8.3 (4.7-12.5) % Eos % (Auto) 2.9 (0.7-5.8) Baso % (Auto) 0.6 (0.1-1.2) % Neut # (Auto) 6.12 (1.56-6.13) K/mm3 Lymph # (Auto) 2.80 (1.18-3.74) K/mm3 [place] # (Auto) 0.84 H (0.24-0.36) K/mm3 Eos # (Auto) 0.29 (0.04-0.36) K/mm3 Baso # (Auto) 0.06 (0.01-0.08) K/mm3 Manual Slide Review Normal smear Sodium 144 (136-145) mEq/L Potassium 4.0 (3.5-5.1) mEq/L Chloride 106 (98-107) mEq/L Carbon Dioxide 28 (21-32) mEq/L Anion Gap 14.0 (5-15) BUN 17 (7-18) mg/dL Creatinine 1.0 (0.55-1.02) mg/dL Est Cr Clr Drug Dosing 47.81 mL/min Estimated GFR (MDRD) 58 (>60) mL/min BUN/Creatinine Ratio 17.0 (14-18) Glucose 93 (70-99) mg/dL Calcium 9.2 (8.5-10.1) mg/dL Total Bilirubin 0.3 (0.2-1.0) mg/dL AST 46 H (15-37) U/L ALT 77 H (14-59) U/L Alkaline Phosphatase 138 H (46-116) U/L Troponin I < 0.017 (0.00-0.056) ng/mL Total Protein 7.3 (6.4-8.2) g/dl Albumin 3.9 (3.4-5.0) g/dl Globulin 3.4 gm/dL Albumin/Globulin Ratio 1.2 (1-2) Lipase 102 (73-393) U/L Meds: Medications Generic Name Dose Route Start Last Admin Trade Name Freq PRN Reason Stop Dose Admin Sodium Chloride 10 ml 11/09/20 21:40 11/09/20 22:48 Sodium Chloride 0.9% 10 Ml Syringe FLUSH 10 ml ASDIRECTED PRN Administration Keep Vein Open Discontinued Medications Generic Name Dose Route Start Last Admin Trade Name Freq PRN Reason Stop Dose Admin Iopamidol 125 ml 11/09/20 22:45 11/09/20 22:47 Iopamidol 612 Mg/Ml 150 Ml Bottle IVPUSH 11/09/20 22:46 125 ml ONETIME ONE Administration Pantoprazole Sodium 40 mg 11/09/20 21:42 11/09/20 21:54 Pantoprazole 40 Mg Vial IVPUSH 11/09/20 21:43 40 mg ONETIME ONE Administration - Re-Assessments/Exams Free Text/Narrative Re-Assessment/Exam: 11/09/20 23:42 I ordered an IV saline lock, protonix 40mg IV, labs, EKG, and CT of her chest, abdomen and pelvis. Her EKG shows a NSR within no acute changes. 11/09/20 23:43 Her WBC was elevated at 10.14. Her AST is elevated at 46 along with her ALT of 77 and alk phos of 134. Her troponin and lipase are negative. 11/10/20 00:29 Her CTs show nothing acute. She feels a little better. She does not want anything for pain. I will discharge her home. Departure - Departure Time of Disposition: 00:35 Disposition: Home, Self-Care 01 Condition: Good Clinical Impression: Atypical chest pain, Upper abdominal pain Referrals: Brionna Mak, FREIGHT CLERK [Primary Care Provider] - 1 Week Forms: ED Department Discharge Additional Instructions: Take your medications as prescribed. Follow up with Brionna and Dr Lawson. Please return if you are worse. Sepsis Event Note (ED) - Evaluation Sepsis Screening Result: No Definite Risk - Focused Exam Vital Signs: Vital Signs Temp Pulse Resp BP Pulse Ox 11/09/20 21:17 96.9 F 84 16 147/88 H 95 - My Orders Last 24 Hours: My Active Orders 11/09/20 21:40 Cardiac Monitoring [RC] . DIRECTED Chest Abdomen Pelvis w Cont [CT] Timed Sodium Chloride 0.9% [Saline Flush] 10 ml FLUSH ASDIRECTED PRN Peripheral IV Insertion Adult [OM.PC] Stat 11/09/20 21:41 EKG Documentation Completion [RC] STAT Peripheral IV Care [RC] . DIRECTED - Assessment/Plan Last 24 Hours: My Active Orders 11/09/20 21:40 Cardiac Monitoring [RC] . DIRECTED Chest Abdomen Pelvis w Cont [CT] Timed Sodium Chloride 0.9% [Saline Flush] 10 ml FLUSH ASDIRECTED PRN Peripheral IV Insertion Adult [OM.PC] Stat 11/09/20 21:41 EKG Documentation Completion [RC] STAT Peripheral IV Care [RC] . DIRECTED
--- NOTE | 2020-11-10 08:49 | CT ---
CT chest Technique: Multiple axial sections were obtained from above the lung apices inferiorly through the lung bases. Intravenous contrast was utilized. Reconstructed coronal and sagittal images were obtained. Comparison: No prior CT chest is available, prior chest x-ray of 08/30/20 is available. Findings: Heart size is normal. No pericardial thickening is seen. Thoracic aorta shows no aneurysm. Mediastinum shows no adenopathy. No axillary adenopathy is seen. Lungs show no acute parenchymal change. Very minimal dependent atelectasis is seen posteriorly within the right lung base. Bone window settings were reviewed which show slight degenerative change scattered within the thoracic spine. No acute osseous finding is appreciated. Impression: 1. Nothing acute is seen on CT study of the chest. Diagnostic code #2 I agree with preliminary report from [facility], finalized on 11/10/20, 1:25 AM CDT, code 1 CT abdomen and pelvis Technique: Multiple axial sections were obtained from above the dome of the diaphragm inferiorly through the pubic symphysis. Intravenous contrast was utilized. No oral contrast has been given. Reconstructed coronal and sagittal images were obtained. Delayed images were also obtained through the bladder. Comparison: Prior CT abdomen study of 06/13/19. Findings: Liver shows diffuse low density compatible with mild fatty infiltration. Spleen size is normal. Small hiatal hernia is noted. Adrenal glands show no nodule. Pancreas shows no abnormality. Surgical clips are seen from prior cholecystectomy. Cyst is noted within the upper pole of the left kidney measuring 4.9 cm. Kidneys show symmetric contrast enhancement. No additional renal abnormality is appreciated. Abdominal aorta shows atherosclerotic calcification which shows no aneurysm. No retroperitoneal adenopathy or mesenteric abnormalities are seen. No pelvic mass or adenopathy is identified. Slight increased stool is noted throughout the colon. Appendix is not visualized with certainty. Delayed images show contrast within the bladder. Small fat-containing left femoral hernia is noted. Bone window settings were reviewed which show no acute osseous finding. Incidental note of a bone island within the left femoral head and within the left iliac bone. Impression: 1. Fatty infiltration within the liver. 2. Mild increased stool within the colon. Left renal cyst. 3. Nothing acute is appreciated on CT study of the abdomen and pelvis. Diagnostic code #2 I agree with preliminary report from [facility], finalized on 11/10/20, 1:25 AM CDT, code 1
== END 2020-11-10 00:38 | disposition home or self-care (01) ==
LOC: JD.ED 21:10
DX: R07.89 Other chest pain (principal); R10.10 Upper abdominal pain, unspecified; E66.9 Obesity, unspecified; E78.00 Pure hypercholesterolemia, unspecified; I10 Essential (primary) hypertension; I25.2 Old myocardial infarction; Z79.82 Long term (current) use of aspirin; Z79.899 Other long term (current) drug therapy; Z88.8 Allergy status to other drugs, medicaments and biological substances; Z68.41 Body mass index [BMI] 40.0-44.9, adult
CPT/HCPCS: 36415; 71260; 71260-26; 74177; 74177-26; 80053; 83690; 84484; 85025; 93005; 93010; 96374; 99284; 99285-25; C9113; Q9967

== ENCOUNTER 2021-01-30 12:37 | Emergency (ER) | payer BC ==
[2021-01-30 12:44] VITALS: BP 172/100; PULSE 74
[2021-01-30] MEDS ORDERED: Sodium Chloride 0.9% 10 ML Syringe FLUSH PRN (12:53)
[2021-01-30] MEDS ORDERED: Ketorolac 30 MG/ML SDV IVPUSH ONE (12:54)
[2021-01-30] MEDS ORDERED: HYDROmorphone 0.5 MG/0.5 ML Syringe IVPUSH ONE ×3 (12:54→17:37)
[2021-01-30] MEDS ORDERED: Sodium Chloride 0.9% 1,000 ML IV STA (12:54)
--- NOTE | 2021-01-30 13:08 | EDM.PDOC ---
ED HPI GENERAL MEDICAL PROBLEM - General Chief Complaint: Headache Stated Complaint: [facility] Time Seen by Provider: 01/30/21 12:44 Source of Information: Reports: Patient, RN Notes Reviewed History Limitations: Reports: No Limitations - History of Present Illness INITIAL COMMENTS - FREE TEXT/NARRATIVE: Patient is a 50-year-old female presenting to the emergency department via [facility] with complaints of headache, nausea, vomiting, diarrhea, subjective fever, and body aches. Symptoms began yesterday with a headache. She developed vomiting and diarrhea today. She is not had a documented fever, but states that she thinks she has been warm. Denies any significant abdominal pain. She has been using hydrocodone with Tylenol for her headache with the last dose being around 8:00 this morning. Denies any history of migraines. Denies any recent head injuries. She was vaccinated for Covid with the [employer] vaccination. Denies any cough, chest pain, or shortness of breath. Headache Pain Score (Numeric/FACES): 10 - Related Data Allergies Allergy/AdvReac Type Severity Reaction Status Date / Time lisinopril AdvReac Severe Cough Verified 01/30/21 12:44 topiramate [From Topamax] AdvReac Severe Confusion Verified 01/30/21 12:44 Home Meds: Home Meds atorvaSTATin [Lipitor] 20 mg PO DAILY 04/20/15 [History] Ondansetron [Zofran ODT] 4 mg PO Q4H PRN 01/23/16 [History] Albuterol Sulfate [Proventil Hfa] 2 puff INH Q6H PRN 10/07/19 [History] Esomeprazole Magnesium [Nexium] 40 mg PO DAILY 10/07/19 [History] Fluticasone/Vilanterol [Breo Ellipta 200-25 MCG Inhalation Kit] 1 puff INH DAILY 10/07/19 [History] Montelukast [Singulair] 10 mg PO DAILY 10/07/19 [History] Sucralfate [Carafate] 1 gm PO BID 10/07/19 [History] amLODIPine [Norvasc] 5 mg PO DAILY 10/07/19 [History] hydroCHLOROthiazide [Hydrochlorothiazide] 25 mg PO DAILY 10/07/19 [History] Atovaquone/Proguanil [Malarone 250-100 MG] 1 tab PO DAILY 03/30/20 [History] DULoxetine [Cymbalta] 60 mg PO DAILY 03/30/20 [History] Famotidine [Pepcid] 20 mg PO DAILY 03/30/20 [History] tiZANidine [Zanaflex] 4 mg PO Q8H PRN 03/30/20 [History] Cyclobenzaprine [Flexeril] 10 mg PO TID PRN #20 tab 05/23/20 [Rx] Aspirin [Halfprin] 81 mg PO DAILY 08/30/20 [History] Codeine/Promethazine [Phenergan with Codeine] 5 ml PO Q4HR PRN #120 ml 08/30/20 [Rx] Pantoprazole Sodium [Protonix] 40 mg PO DAILY 08/30/20 [History] Past Medical History HEENT History: Reports: Impaired Vision Other HEENT History: wears glasses Cardiovascular History: Reports: Angina, High Cholesterol, Hypertension, [place] Respiratory History: Reports: Asthma, Sleep Apnea, SOB Gastrointestinal History: Reports: Colon Polyp, Gastritis, GERD Other Gastrointestinal History: Precancerous colon, chronic abdominal pain, esophagitis, colon polyp, diagnostic laparoscopy Genitourinary History: Reports: Renal Calculus, Retention, Urinary, UTI, Recurrent ANIMATION ARTIST History: Reports: , Other (See Below) Other ANIMATION ARTIST History: ovarian sx Musculoskeletal History: Reports: Fracture, Other (See Below) Other Musculoskeletal History: lumbar radiculopathy, ulnar neuropathy, bilateral carpal tunnel syndrome, polyarthralgia, right knee pain, right IT band syndrome Neurological History: Reports: Concussion, Other (See Below) Other Neuro History: ulnar neuropathy Psychiatric History: Reports: Anxiety, Depression Endocrine/Metabolic History: Reports: Obesity/BMI 30+ Hematologic History: Reports: Anemia Immunologic History: Reports: None Oncologic (Cancer) History: Reports: Other (See Below) Other Oncologic History: pre-cancer on colon polyp. Dermatologic History: Reports: None - Infectious Disease History Infectious Disease History: Reports: Chicken Pox Other Infectious Disease History: recent trip to [facility], [place] - Past Surgical History Head Surgeries/Procedures: Reports: None HEENT Surgical History: Reports: Oral Surgery Other HEENT Surgeries/Procedures: teeth removed Cardiovascular Surgical History: Reports: None Respiratory Surgical History: Reports: None GI Surgical History: Reports: Appendectomy, Cholecystectomy, Colonoscopy, EGD, Hernia, Abdominal Other GI Surgeries/Procedures: scar tissure removed from stomach, lysis of adhesions Female Surgical History: Reports: Hysterectomy, Tubal Ligation Endocrine Surgical History: Reports: None Neurological Surgical History: Reports: None Musculoskeletal Surgical History: Reports: Arthroscopic Knee, Shoulder Surgery, Other (See Below) Other Musculoskeletal Surgeries/Procedures:: left shoulder video arthroscopy, left bicep tenotomy Oncologic Surgical History: Reports: None Social & Family History - Family History Family Medical History: No Pertinent Family History - Tobacco Use Tobacco Use Status *Q: Never Tobacco User Second Hand Smoke Exposure: No - Caffeine Use Caffeine Use: Reports: Coffee - Recreational Drug Use Recreational Drug Use: No - Living Situation & Occupation Living situation: Reports: (), with Family (Grandson) Occupation: Employed ([employer]) ED ROS GENERAL - Review of Systems Review Of Systems: Comprehensive ROS is negative, except as noted in HPI. - Physical Exam Exam: See Below Exam Limited By: No Limitations General Appearance: Alert, WD/WN, No Apparent Distress Respiratory/Chest: No Respiratory Distress, Lungs Clear, Normal Breath Sounds, No Accessory Muscle Use, Chest Non-Tender Cardiovascular: Normal Peripheral Pulses, Regular Rate, Rhythm, No Edema, No Gallop, No JVD, No Murmur, No Rub GI/Abdominal: Normal Bowel Sounds, Soft, Non-Tender, No Organomegaly, No Distention, No Abnormal Bruit, No Mass Neuro Exam (Abbreviated): Alert, Oriented, CN II-XII Intact, Normal Cognition, Normal Gait, Normal Reflexes, No Motor/Sensory Deficits Psychiatric: Normal Affect, Normal Mood Skin Exam: Warm, Dry, Intact, Normal Color, No Rash Course - Vital Signs Last Recorded V/S: Last Vital Signs Temp 98.2 F 01/30/21 12:43 Pulse 74 01/30/21 12:43 Resp 20 01/30/21 12:43 BP 172/100 H 01/30/21 12:43 Pulse Ox 97 01/30/21 12:43 - Orders/Labs/Meds Orders: Active Orders 24 hr Category Date Time Status CULTURE URINE [MREF] Stat Lab 01/30/21 16:25 Received Peripheral IV Insertion Adult [OM.PC] Stat Oth 01/30/21 12:53 Ordered Labs: Laboratory Tests 01/30/21 01/30/21 01/30/21 Range/Units 12:50 13:30 13:30 WBC 11.37 H (3.98-10.04) K/mm3 RBC 5.19 (3.98-5.22) M/mm3 Hgb 15.2 (11.2-15.7) gm/dl Hct 45.8 H (34.1-44.9) % MCV 88.2 (79.4-94.8) fl MCH 29.3 (25.6-32.2) pg MCHC 33.2 (32.2-35.5) g/dl RDW Std Deviation 43.9 (36.4-46.3) fL Plt Count 382 H (182-369) K/mm3 MPV 10.1 (9.4-12.3) fl Neut % (Auto) 78.4 H (34.0-71.1) % Lymph % (Auto) 12.8 L (19.3-51.7) % [place] % (Auto) 6.8 (4.7-12.5) % Eos % (Auto) 1.2 (0.7-5.8) Baso % (Auto) 0.4 (0.1-1.2) % Neut # (Auto) 8.93 H (1.56-6.13) K/mm3 Lymph # (Auto) 1.45 (1.18-3.74) K/mm3 [place] # (Auto) 0.77 H (0.24-0.36) K/mm3 Eos # (Auto) 0.14 (0.04-0.36) K/mm3 Baso # (Auto) 0.04 (0.01-0.08) K/mm3 Sodium 143 (136-145) mEq/L Potassium 3.7 (3.5-5.1) mEq/L Chloride 106 (98-107) mEq/L Carbon Dioxide 27 (21-32) mEq/L Anion Gap 13.7 (5-15) BUN 13 (7-18) mg/dL Creatinine 0.9 (0.55-1.02) mg/dL Est Cr Clr Drug Dosing 53.12 mL/min Estimated GFR (MDRD) > 60 (>60) mL/min BUN/Creatinine Ratio 14.4 (14-18) Glucose 118 H (70-99) mg/dL Calcium 9.3 (8.5-10.1) mg/dL Total Bilirubin 0.4 (0.2-1.0) mg/dL AST 53 H (15-37) U/L ALT 66 H (14-59) U/L Alkaline Phosphatase 164 H (46-116) U/L C-Reactive Protein <0.2 (<1.0) mg/dL Total Protein 7.3 (6.4-8.2) g/dl Albumin 3.5 (3.4-5.0) g/dl Globulin 3.8 gm/dL Albumin/Globulin Ratio 0.9 L (1-2) Urine Color (Yellow) Urine Appearance (Clear) Urine pH (5.0-8.0) Ur Specific [place] (1.005-1.030) Urine Protein (Negative) Urine Glucose (UA) (Negative) Urine Ketones (Negative) Urine Occult Blood (Negative) Urine Nitrite (Negative) Urine Bilirubin (Negative) Urine Urobilinogen (0.2-1.0) Ur Leukocyte Esterase (Negative) Urine RBC (0-5) /hpf Urine WBC (0-5) /hpf Ur Squamous Epith Cells (0-5) /hpf Urine Bacteria (FEW) /hpf Urine Mucus (FEW) /hpf SARS-CoV-2 RNA (ANAMARIA) Negative (NEGATIVE) 01/30/21 Range/Units 16:23 WBC (3.98-10.04) K/mm3 RBC (3.98-5.22) M/mm3 Hgb (11.2-15.7) gm/dl Hct (34.1-44.9) % MCV (79.4-94.8) fl MCH (25.6-32.2) pg MCHC (32.2-35.5) g/dl RDW Std Deviation (36.4-46.3) fL Plt Count (182-369) K/mm3 MPV (9.4-12.3) fl Neut % (Auto) (34.0-71.1) % Lymph % (Auto) (19.3-51.7) % [place] % (Auto) (4.7-12.5) % Eos % (Auto) (0.7-5.8) Baso % (Auto) (0.1-1.2) % Neut # (Auto) (1.56-6.13) K/mm3 Lymph # (Auto) (1.18-3.74) K/mm3 [place] # (Auto) (0.24-0.36) K/mm3 Eos # (Auto) (0.04-0.36) K/mm3 Baso # (Auto) (0.01-0.08) K/mm3 Sodium (136-145) mEq/L Potassium (3.5-5.1) mEq/L Chloride (98-107) mEq/L Carbon Dioxide (21-32) mEq/L Anion Gap (5-15) BUN (7-18) mg/dL Creatinine (0.55-1.02) mg/dL Est Cr Clr Drug Dosing mL/min Estimated GFR (MDRD) (>60) mL/min BUN/Creatinine Ratio (14-18) Glucose (70-99) mg/dL Calcium (8.5-10.1) mg/dL Total Bilirubin (0.2-1.0) mg/dL AST (15-37) U/L ALT (14-59) U/L Alkaline Phosphatase (46-116) U/L C-Reactive Protein (<1.0) mg/dL Total Protein (6.4-8.2) g/dl Albumin (3.4-5.0) g/dl Globulin gm/dL Albumin/Globulin Ratio (1-2) Urine Color Yellow (Yellow) Urine Appearance Slt cloudy H (Clear) Urine pH 7.5 (5.0-8.0) Ur Specific [place] 1.025 (1.005-1.030) Urine Protein 2+ H (Negative) Urine Glucose (UA) Negative (Negative) Urine Ketones Trace H (Negative) Urine Occult Blood Trace-intact H (Negative) Urine Nitrite Negative (Negative) Urine Bilirubin 1+ H (Negative) Urine Urobilinogen 1.0 (0.2-1.0) Ur Leukocyte Esterase Trace H (Negative) Urine RBC 0-5 (0-5) /hpf Urine WBC 5-10 H (0-5) /hpf Ur Squamous Epith Cells 5-10 H (0-5) /hpf Urine Bacteria Moderate H (FEW) /hpf Urine Mucus Many H (FEW) /hpf SARS-CoV-2 RNA (ANAMARIA) (NEGATIVE) Meds: Medications Discontinued Medications Generic Name Dose Route Start Last Admin Trade Name Freq PRN Reason Stop Dose Admin Diphenhydramine HCl 25 mg 01/30/21 17:36 10/03/21 18:02 Diphenhydramine 50 Mg/Ml Sdv IVPUSH 01/30/21 17:37 25 mg ONETIME ONE Administration Hydromorphone HCl 0.5 mg 01/30/21 12:54 01/30/21 13:41 Hydromorphone 0.5 Mg/0.5 Ml Syringe IVPUSH 01/30/21 12:55 0.5 mg ONETIME ONE Administration Hydromorphone HCl 0.5 mg 01/30/21 15:09 01/30/21 15:17 Hydromorphone 0.5 Mg/0.5 Ml Syringe IVPUSH 01/30/21 15:10 0.5 mg ONETIME ONE Administration Hydromorphone HCl 0.5 mg 01/30/21 17:37 01/30/21 18:03 Hydromorphone 0.5 Mg/0.5 Ml Syringe IVPUSH 01/30/21 17:38 0.5 mg ONETIME ONE Administration Sodium Chloride 1,000 mls @ 999 mls/hr 01/30/21 12:54 01/30/21 15:12 Normal Saline IV 01/30/21 13:54 999 mls/hr NOW STA Infusion Ketorolac Tromethamine 30 mg 01/30/21 12:54 01/30/21 13:40 Ketorolac 30 Mg/Ml Sdv IVPUSH 01/30/21 12:55 30 mg ONETIME ONE Administration Metoclopramide HCl 10 mg 01/30/21 17:36 01/30/21 18:02 Metoclopramide 10 Mg/2 Ml Sdv IVPUSH 01/30/21 17:37 10 mg ONETIME ONE Administration Ondansetron HCl 4 mg 01/30/21 15:09 01/30/21 15:15 Ondansetron 4 Mg/2 Ml Sdv IVPUSH 01/30/21 15:10 4 mg ONETIME ONE Administration Sodium Chloride 10 ml 01/30/21 12:53 01/30/21 13:41 Sodium Chloride 0.9% 10 Ml Syringe FLUSH 10 ml ASDIRECTED PRN Administration Keep Vein Open - Re-Assessments/Exams Free Text/Narrative Re-Assessment/Exam: Patient is a 50-year-old female presenting to the emergency department with complaints of headache that began yesterday, nausea and vomiting and body aches that began today. Denies any history of migraines. Exam is unremarkable. She received Zofran from EMS in route to ER. She was vaccinated with the [employer] Covid vaccine. I have ordered blood work, urinalysis, head CT. I will give her IV fluids, Dilaudid, and Toradol. 01/30/21 15:13 Hematology is significant for WBC slightly elevated 11.37. AST 53, ALT 66, alkaline phosphatase 164. Covid is negative. Patient has not produced a urine sample thus far. Head CT shows no acute abnormalities. Headache is improved but still present. I will give another dose of Dilaudid and Zofran. I have turned her IV fluids up to bolus rate. 01/30/21 17:46 Urinalysis was positive for 2+ protein, trace ketones, trace occult blood, 1+ bili, trace leukocyte esterase, 5-10 WBCs, 5-10 squamous epithelial cells, moderate bacteria. Patient has no urinary symptoms. I suspect this is contamination. I have sent the urine for culture. She continues to complain of headache and feels nauseous, however has not vomited. I will give her Reglan, Benadryl, and another dose of Dilaudid. 01/30/21 19:15 Patient is feeling much better after the medications given. She does have Zofran at home. We will discharge her home with recommendation that she use Tylenol, ibuprofen, and Zofran as needed. She has follow-up appointment scheduled with her primary on Sunday. Discussed return precautions. Discharge instructions as documented. Departure - Departure Time of Disposition: 19:15 Disposition: Home, Self-Care 01 Condition: Good Clinical Impression: Headache Qualifiers: Headache type: unspecified Headache chronicity pattern: acute headache Intractability: not intractable Qualified Code(s): R51.9 - Headache, unspecified - Discharge Information *PRESCRIPTION DRUG MONITORING PROGRAM REVIEWED*: No *COPY OF PRESCRIPTION DRUG MONITORING REPORT IN PATIENT MAGGIE: No Instructions: General Headache Without Cause, [id number] Referrals: PCP,None [Primary Care Provider] - Forms: ED Department Discharge Additional Instructions: You were seen in the emergency department today for headache, nausea, vomiting, diarrhea. Work-up included blood work, urinalysis, Covid test, and a CT scan of your head. Results of your work-up were found to be overall normal. There was some bacteria in your urine which is likely related to contamination. This was sent for culture and you will be notified if there is an infection that would require treatment. Covid is negative. Head CT was normal. While in the ER, he received IV fluids, pain medication, and nausea medication. This did significantly improve your symptoms. Recommend that you go home and rest. Use Tylenol or ibuprofen as needed for discomfort. You may use your hydrocodone with Tylenol as prescribed. Use Zofran that you have at home as needed for nausea. Follow-up with your primary care provider as scheduled on Sunday. If you experience any worsening symptoms, please not hesitate to return to the emergency department for reevaluation. Sepsis Event Note (ED) - Focused Exam Vital Signs: Vital Signs Temp Pulse Resp BP Pulse Ox 01/30/21 12:43 98.2 F 74 20 172/100 H 97 - My Orders Last 24 Hours: My Active Orders 01/30/21 12:53 Peripheral IV Insertion Adult [OM.PC] Stat 01/30/21 16:25 CULTURE URINE [MREF] Stat - Assessment/Plan Last 24 Hours: My Active Orders 01/30/21 12:53 Peripheral IV Insertion Adult [OM.PC] Stat 01/30/21 16:25 CULTURE URINE [MREF] Stat
--- NOTE | 2021-01-30 14:40 | CT ---
Head CT Technique: Multiple axial sections through the brain were obtained. Intravenous contrast was not utilized. Reconstructed coronal and sagittal images were obtained. Comparison: Prior head CT study of 12/18/17. Findings: Ventricles along with basal cisterns and sulci over the convexities are within normal limits for the patient's age. No abnormal parenchymal densities are seen. No evidence of intracranial hemorrhage is seen. No midline shift or mass-effect is seen. Bone window settings were reviewed. No acute calvarial abnormality is seen. Visualized mastoid sinuses and paranasal sinuses show nothing acute. Impression: 1. Nothing acute is seen on noncontrast head CT study. 2. No change from previous study is seen. Diagnostic code #1
[2021-01-30] MEDS ORDERED: Ondansetron 4 MG/2 ML SDV IVPUSH ONE (15:09)
[2021-01-30] MEDS ORDERED: Metoclopramide 10 MG/2 ML SDV IVPUSH ONE (17:36)
[2021-01-30] MEDS ORDERED: diphenhydrAMINE 50 MG/ML SDV IVPUSH ONE (17:36)
== END 2021-01-30 19:25 | disposition home or self-care (01) ==
LOC: JD.ED 12:37
DX: R51.9 Headache, unspecified (principal); E78.00 Pure hypercholesterolemia, unspecified; I10 Essential (primary) hypertension; I25.2 Old myocardial infarction; K21.9 Gastro-esophageal reflux disease without esophagitis; E66.9 Obesity, unspecified; Z68.41 Body mass index [BMI] 40.0-44.9, adult; Z88.8 Allergy status to other drugs, medicaments and biological substances; Z79.82 Long term (current) use of aspirin; Z79.899 Other long term (current) drug therapy; Z20.822 Contact with and (suspected) exposure to COVID-19
CPT/HCPCS: 36415; 70450; 80053; 81001; 85025; 86140; 87086; 87635; 96374; 96375; 96376; 99285; J1170; J1200; J1885; J2405; J2765; J7030; U0002

== ENCOUNTER 2021-01-31 12:04 | Emergency (ER) | payer BC ==
[2021-01-31] MEDS ORDERED: Ketorolac 30 MG/ML SDV IVPUSH ONE (14:20)
[2021-01-31] MEDS ORDERED: Metoclopramide 10 MG/2 ML SDV IVPUSH ONE (14:20)
[2021-01-31] MEDS ORDERED: diphenhydrAMINE 50 MG/ML SDV IVPUSH ONE (14:20)
[2021-01-31] MEDS ORDERED: Sodium Chloride 0.9% 1,000 ML IV ONE (14:20)
--- NOTE | 2021-01-31 14:26 | EDM.PDOC ---
ED HPI GENERAL MEDICAL PROBLEM - General Chief Complaint: Headache Stated Complaint: HEADACHE Time Seen by Provider: 01/31/21 13:52 Source of Information: Reports: Patient History Limitations: Reports: No Limitations - History of Present Illness INITIAL COMMENTS - FREE TEXT/NARRATIVE: 50-year-old female presents the emergency department today with complaints of a headache. Patient was seen in the emergency department yesterday with similar complaints. She stated at that time she has no history of migraine. Lab studies as well as a CT of the head were completed on that visit and were essentially unremarkable. There were no acute processes identified on head CT. Patient was treated with IV fluids, Toradol, Benadryl, Dilaudid and Reglan and that did make the headache significantly better and she was subsequently discharged home. Patient states that after she got home yesterday the headache started to return and when she was woke up this morning it was significantly worse again. Headache has caused her to have nausea and vomiting. She does admit to photophobia and phonophobia. Headache Pain Score (Numeric/FACES): 10 - Related Data Allergies Allergy/AdvReac Type Severity Reaction Status Date / Time lisinopril AdvReac Severe Cough Verified 01/30/21 12:44 topiramate [From Topamax] AdvReac Severe Confusion Verified 01/30/21 12:44 Home Meds: Home Meds atorvaSTATin [Lipitor] 20 mg PO DAILY 04/20/15 [History] Ondansetron [Zofran ODT] 4 mg PO Q4H PRN 01/23/16 [History] Albuterol Sulfate [Proventil Hfa] 2 puff INH Q6H PRN 10/07/19 [History] Esomeprazole Magnesium [Nexium] 40 mg PO DAILY 10/07/19 [History] Fluticasone/Vilanterol [Breo Ellipta 200-25 MCG Inhalation Kit] 1 puff INH DAILY 10/07/19 [History] Montelukast [Singulair] 10 mg PO DAILY 10/07/19 [History] Sucralfate [Carafate] 1 gm PO BID 10/07/19 [History] amLODIPine [Norvasc] 5 mg PO DAILY 10/07/19 [History] hydroCHLOROthiazide [Hydrochlorothiazide] 25 mg PO DAILY 10/07/19 [History] Atovaquone/Proguanil [Malarone 250-100 MG] 1 tab PO DAILY 03/30/20 [History] DULoxetine [Cymbalta] 60 mg PO DAILY 03/30/20 [History] Famotidine [Pepcid] 20 mg PO DAILY 03/30/20 [History] tiZANidine [Zanaflex] 4 mg PO Q8H PRN 03/30/20 [History] Cyclobenzaprine [Flexeril] 10 mg PO TID PRN #20 tab 05/23/20 [Rx] Aspirin [Halfprin] 81 mg PO DAILY 08/30/20 [History] Codeine/Promethazine [Phenergan with Codeine] 5 ml PO Q4HR PRN #120 ml 08/30/20 [Rx] Pantoprazole Sodium [Protonix] 40 mg PO DAILY 08/30/20 [History] Past Medical History HEENT History: Reports: Impaired Vision Other HEENT History: wears glasses Cardiovascular History: Reports: Angina, High Cholesterol, Hypertension, [place] Respiratory History: Reports: Asthma, Sleep Apnea, SOB Gastrointestinal History: Reports: Colon Polyp, Gastritis, GERD Other Gastrointestinal History: Precancerous colon, chronic abdominal pain, esophagitis, colon polyp, diagnostic laparoscopy Genitourinary History: Reports: Renal Calculus, Retention, Urinary, UTI, Recurrent 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: Reports: , Other (See Below) Other 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: ovarian sx Musculoskeletal History: Reports: Fracture, Other (See Below) Other Musculoskeletal History: lumbar radiculopathy, ulnar neuropathy, bilateral carpal tunnel syndrome, polyarthralgia, right knee pain, right IT band syndrome Neurological History: Reports: Concussion, Other (See Below) Other Neuro History: ulnar neuropathy Psychiatric History: Reports: Anxiety, Depression Endocrine/Metabolic History: Reports: Obesity/BMI 30+ Hematologic History: Reports: Anemia Immunologic History: Reports: None Oncologic (Cancer) History: Reports: Other (See Below) Other Oncologic History: pre-cancer on colon polyp. Dermatologic History: Reports: None - Infectious Disease History Infectious Disease History: Reports: Chicken Pox Other Infectious Disease History: recent trip to [facility], [place] - Past Surgical History Head Surgeries/Procedures: Reports: None HEENT Surgical History: Reports: Oral Surgery Other HEENT Surgeries/Procedures: teeth removed Cardiovascular Surgical History: Reports: None Respiratory Surgical History: Reports: None GI Surgical History: Reports: Appendectomy, Cholecystectomy, Colonoscopy, EGD, Hernia, Abdominal Other GI Surgeries/Procedures: scar tissure removed from stomach, lysis of adhesions Female Surgical History: Reports: Hysterectomy, Tubal Ligation Endocrine Surgical History: Reports: None Neurological Surgical History: Reports: None Musculoskeletal Surgical History: Reports: Arthroscopic Knee, Shoulder Surgery, Other (See Below) Other Musculoskeletal Surgeries/Procedures:: left shoulder video arthroscopy, left bicep tenotomy Oncologic Surgical History: Reports: None Social & Family History - Family History Family Medical History: No Pertinent Family History - Tobacco Use Tobacco Use Status *Q: Never Tobacco User - Caffeine Use Caffeine Use: Reports: Coffee - Recreational Drug Use Recreational Drug Use: No - Living Situation & Occupation Living situation: Reports: (), with Family (Grandson) Occupation: Employed ([employer]) ED ROS GENERAL - Review of Systems Review Of Systems: Comprehensive ROS is negative, except as noted in HPI. - Physical Exam Exam: See Below Exam Limited By: No Limitations General Appearance: Alert, WD/WN, Mild Distress Eye Exam: Bilateral Eye: EOMI, PERRL Ears: Normal External Exam, Normal Canal, Hearing Grossly Normal, Normal TMs Nose: Normal Inspection, Normal Mucosa Throat/Mouth: Normal Inspection, Normal Lips, Normal Voice, No Airway Compromise Head Exam: Atraumatic Neck: Normal Inspection, Supple Respiratory/Chest: No Respiratory Distress, Lungs Clear, Normal Breath Sounds, No Accessory Muscle Use, Chest Non-Tender Cardiovascular: Normal Peripheral Pulses, Regular Rate, Rhythm, No Edema, No Murmur GI/Abdominal: Normal Bowel Sounds, Soft, Non-Tender, No Distention (Female) Exam: Deferred Rectal (Female) Exam: Deferred Neuro Exam (Abbreviated): Alert, Oriented, CN II-XII Intact, Normal Cognition Back Exam: Normal Inspection Extremities: Normal Inspection Psychiatric: Normal Affect, Normal Mood Skin Exam: Warm, Dry, Intact, Normal Color, No Rash Course - Vital Signs Text/Narrative:: As stated above, patient presents with worsening headache after being evaluated in the emergency department yesterday. Upon exam, patient is awake and alert however she is very sensitive to light. Neuro exam is unremarkable. I have ordered lab studies to include a CBC, CMP, and magnesium level. We will give the patient a liter of normal saline IV wide open as well as Toradol, Reglan and Benadryl to see if we can abort the headache. Last Recorded V/S: Last Vital Signs Temp 98.4 F 01/31/21 13:17 Pulse 79 01/31/21 13:17 Resp 20 01/31/21 13:17 BP 138/84 01/31/21 13:17 Pulse Ox 98 01/31/21 13:17 - Orders/Labs/Meds Labs: Laboratory Tests 01/31/21 01/31/21 Range/Units 14:50 14:50 WBC 9.76 (3.98-10.04) K/mm3 RBC 4.91 (3.98-5.22) M/mm3 Hgb 14.4 (11.2-15.7) gm/dl Hct 44.1 (34.1-44.9) % MCV 89.8 (79.4-94.8) fl MCH 29.3 (25.6-32.2) pg MCHC 32.7 (32.2-35.5) g/dl RDW Std Deviation 44.1 (36.4-46.3) fL Plt Count 338 (182-369) K/mm3 MPV 9.9 (9.4-12.3) fl Neut % (Auto) 67.9 (34.0-71.1) % Lymph % (Auto) 19.1 L (19.3-51.7) % Scott % (Auto) 10.3 (4.7-12.5) % Eos % (Auto) 1.8 (0.7-5.8) Baso % (Auto) 0.5 (0.1-1.2) % Neut # (Auto) 6.62 H (1.56-6.13) K/mm3 Lymph # (Auto) 1.86 (1.18-3.74) K/mm3 Scott # (Auto) 1.01 H (0.24-0.36) K/mm3 Eos # (Auto) 0.18 (0.04-0.36) K/mm3 Baso # (Auto) 0.05 (0.01-0.08) K/mm3 Sodium 142 (136-145) mEq/L Potassium 3.5 (3.5-5.1) mEq/L Chloride 105 (98-107) mEq/L Carbon Dioxide 30 (21-32) mEq/L Anion Gap 10.5 (5-15) BUN 11 (7-18) mg/dL Creatinine 0.9 (0.55-1.02) mg/dL Est Cr Clr Drug Dosing 53.12 mL/min Estimated GFR (MDRD) > 60 (>60) mL/min BUN/Creatinine Ratio 12.2 L (14-18) Glucose 92 (70-99) mg/dL Calcium 8.9 (8.5-10.1) mg/dL Magnesium 2.1 (1.8-2.4) mg/dL Total Bilirubin 0.5 (0.2-1.0) mg/dL AST 44 H (15-37) U/L ALT 60 H (14-59) U/L Alkaline Phosphatase 154 H (46-116) U/L Total Protein 7.1 (6.4-8.2) g/dl Albumin 3.5 (3.4-5.0) g/dl Globulin 3.6 gm/dL Albumin/Globulin Ratio 1.0 (1-2) Meds: Medications Discontinued Medications Generic Name Dose Route Start Last Admin Trade Name Rolly PRN Reason Stop Dose Admin Diphenhydramine HCl 25 mg 01/31/21 14:20 01/31/21 14:59 Diphenhydramine 50 Mg/Ml Sdv IVPUSH 01/31/21 14:21 25 mg ONETIME ONE Administration Sodium Chloride 1,000 mls @ 999 mls/hr 01/31/21 14:20 01/31/21 15:00 Normal Saline IV 01/31/21 15:20 999 mls/hr ONETIME ONE Administration Ketorolac Tromethamine 30 mg 01/31/21 14:20 01/31/21 15:00 Ketorolac 30 Mg/Ml Sdv IVPUSH 01/31/21 14:21 30 mg ONETIME ONE Administration Metoclopramide HCl 10 mg 01/31/21 14:20 01/31/21 14:59 Metoclopramide 10 Mg/2 Ml Sdv IVPUSH 01/31/21 14:21 10 mg ONETIME ONE Administration - Re-Assessments/Exams Free Text/Narrative Re-Assessment/Exam: 01/31/21 15:59 Hematology is essentially unremarkable, chemistry reveals an AST of 44, ALT of 60, alk phos 154 otherwise unremarkable. 01/31/21 16:01 Patient reports that her headache pain is much better. She rates it at a 6 out of 10. She does have an appointment with her primary care provider scheduled for tomorrow. She will be discharged home with recommendations that she keep that follow-up appointment. Departure - Departure Time of Disposition: 16:02 Disposition: Home, Self-Care 01 Condition: Good Clinical Impression: Migraine - Discharge Information Instructions: Migraine Headache, [id number] Referrals: PCP,None [Primary Care Provider] - Forms: ED Department Discharge Additional Instructions: You were seen in the emergency department today with complaints of a headache. CT scan was completed yesterday in the emergency department so this was not r epeated. Lab studies were completed which were essentially unremarkable. While you are in the emergency department you received IV fluids and medications to abort your headache. This did seem to help. Recommend that you go home and rest in a dark quiet room. Drink plenty of fluids. You may take ibuprofen 600 mg in about 4 hours time. Recommend that you keep your follow-up appointment with your primary care provider as scheduled for tomorrow. Should your condition worsen or change, do not hesitate returning to the emergency department. Sepsis Event Note (ED) - Focused Exam Vital Signs: Vital Signs Temp Pulse Resp BP Pulse Ox 01/31/21 13:17 98.4 F 79 20 138/84 98
[2021-01-31 16:33] VITALS: BP 139/75; PULSE 74
== END 2021-01-31 16:25 | disposition home or self-care (01) ==
LOC: SUPCPDRO 12:04 → JD.ED 12:04
DX: G43.909 Migraine, unspecified, not intractable, without status migrainosus (principal); E78.00 Pure hypercholesterolemia, unspecified; I10 Essential (primary) hypertension; I25.2 Old myocardial infarction; K21.9 Gastro-esophageal reflux disease without esophagitis; E66.9 Obesity, unspecified; Z68.41 Body mass index [BMI] 40.0-44.9, adult; Z88.8 Allergy status to other drugs, medicaments and biological substances; Z79.82 Long term (current) use of aspirin; Z79.899 Other long term (current) drug therapy
CPT/HCPCS: 36415; 80053; 83735; 85025; 96374; 96375; 99284; J1200; J1885; J2765; J7030

== ENCOUNTER 2021-04-26 12:03 | Emergency (ER) | payer BC ==
[2021-04-26 12:46] VITALS: BP 133/84; PULSE 86
[2021-04-26] MEDS ORDERED: Albuterol 0.083% 2.5 MG/3 ML Neb Soln NEB ONE (13:05)
[2021-04-26 13:33] LABS: CORONAVIRUS COVID-19 NAA NEGATIVE (NEGATIVE)
--- NOTE | 2021-04-26 13:40 | CR ---
Chest: Portable view of the chest was obtained. Comparison: Prior chest x-ray of 08/30/20. Heart size and mediastinum are within normal limits for portable technique. Lungs are clear with no acute parenchymal change. Bony structures showed nothing acute. Impression: 1. Nothing acute is seen on portable chest x-ray. Diagnostic code #1
--- NOTE | 2021-04-26 14:08 | EDM.PDOC ---
ED HPI GENERAL MEDICAL PROBLEM - General Chief Complaint: Respiratory Problem Stated Complaint: COUGH VOMITING Time Seen by Provider: 04/26/21 12:40 Source of Information: Reports: Patient History Limitations: Reports: No Limitations - History of Present Illness INITIAL COMMENTS - FREE TEXT/NARRATIVE: 51-year-old female presents the emergency department today with complaints of cough that started 3 days ago. Patient states she did have one episode of vomiting this morning however she states that was all phlegm first thing when she woke up and was showering. She denies any recent fever, chills, or nausea. She also states she did have one episode of diarrhea this morning. She denies smoking history. She states she did have her Covid vaccine [employer] booster approximately 1 week ago. She states she has had her influenza vaccine this season. She states she does have a history of asthma however she does not take any maintenance medications or nor does she have a rescue inhaler. Chest Pain Score (Numeric/FACES): 6 - Related Data Allergies Allergy/AdvReac Type Severity Reaction Status Date / Time lisinopril AdvReac Mild Cough Verified 04/26/21 12:40 topiramate [From Topamax] AdvReac Mild Confusion Verified 04/26/21 12:40 Home Meds: Home Meds atorvaSTATin [Lipitor] 20 mg PO DAILY 04/20/15 [History] Ondansetron [Zofran ODT] 4 mg PO Q4H PRN 01/23/16 [History] Albuterol Sulfate [Proventil Hfa] 2 puff INH Q6H PRN 10/07/19 [History] Esomeprazole Magnesium [Nexium] 40 mg PO DAILY 10/07/19 [History] Fluticasone/Vilanterol [Breo Ellipta 200-25 MCG Inhalation Kit] 1 puff INH DAILY 10/07/19 [History] Montelukast [Singulair] 10 mg PO DAILY 10/07/19 [History] Sucralfate [Carafate] 1 gm PO BID 10/07/19 [History] amLODIPine [Norvasc] 5 mg PO DAILY 10/07/19 [History] hydroCHLOROthiazide [Hydrochlorothiazide] 25 mg PO DAILY 10/07/19 [History] Atovaquone/Proguanil [Malarone 250-100 MG] 1 tab PO DAILY 03/30/20 [History] DULoxetine [Cymbalta] 60 mg PO DAILY 03/30/20 [History] Famotidine [Pepcid] 20 mg PO DAILY 03/30/20 [History] tiZANidine [Zanaflex] 4 mg PO Q8H PRN 03/30/20 [History] Cyclobenzaprine [Flexeril] 10 mg PO TID PRN #20 tab 05/23/20 [Rx] Aspirin [Halfprin] 81 mg PO DAILY 08/30/20 [History] Codeine/Promethazine [Phenergan with Codeine] 5 ml PO Q4HR PRN #120 ml 08/30/20 [Rx] Pantoprazole Sodium [Protonix] 40 mg PO DAILY 08/30/20 [History] Albuterol Sulfate [Albuterol Sulfate Hfa] 8.5 gm IH Q4H PRN #1 hfa.aer.ad 04/26/21 [Rx] Benzonatate [Tessalon Perles] 100 mg PO TID PRN #20 cap 04/26/21 [Rx] Past Medical History HEENT History: Reports: Impaired Vision Other HEENT History: wears glasses Cardiovascular History: Reports: Angina, High Cholesterol, Hypertension, CT Respiratory History: Reports: Asthma, Sleep Apnea, SOB Gastrointestinal History: Reports: Colon Polyp, Gastritis, GERD Other Gastrointestinal History: Precancerous colon, chronic abdominal pain, esophagitis, colon polyp, diagnostic laparoscopy Genitourinary History: Reports: Renal Calculus, Retention, Urinary, UTI, Recurrent 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: , Other (See Below) Other PANEL SEWER History: ovarian sx Musculoskeletal History: Reports: Fracture, Other (See Below) Other Musculoskeletal History: lumbar radiculopathy, ulnar neuropathy, bilateral carpal tunnel syndrome, polyarthralgia, right knee pain, right IT band syndrome Neurological History: Reports: Concussion, Other (See Below) Other Neuro History: ulnar neuropathy Psychiatric History: Reports: Anxiety, Depression Endocrine/Metabolic History: Reports: Obesity/BMI 30+ Hematologic History: Reports: Anemia Immunologic History: Reports: None Oncologic (Cancer) History: Reports: Other (See Below) Other Oncologic History: pre-cancer on colon polyp. Dermatologic History: Reports: None - Infectious Disease History Infectious Disease History: Reports: Chicken Pox Other Infectious Disease History: recent trip to [facility], [place] - Past Surgical History Head Surgeries/Procedures: Reports: None HEENT Surgical History: Reports: Oral Surgery Other HEENT Surgeries/Procedures: teeth removed Cardiovascular Surgical History: Reports: None Respiratory Surgical History: Reports: None GI Surgical History: Reports: Appendectomy, Cholecystectomy, Colonoscopy, EGD, Hernia, Abdominal Other GI Surgeries/Procedures: scar tissure removed from stomach, lysis of adhesions Female Surgical History: Reports: Hysterectomy, Tubal Ligation Endocrine Surgical History: Reports: None Neurological Surgical History: Reports: None Musculoskeletal Surgical History: Reports: Arthroscopic Knee, Shoulder Surgery, Other (See Below) Other Musculoskeletal Surgeries/Procedures:: left shoulder video arthroscopy, left bicep tenotomy Oncologic Surgical History: Reports: None Social & Family History - Family History Family Medical History: No Pertinent Family History - Tobacco Use Tobacco Use Status *Q: Never Tobacco User Second Hand Smoke Exposure: No - Caffeine Use Caffeine Use: Reports: None Caffeine Use Comment: Pt states she is currently not using caffeine as she is preparing for bariatric surgery - Recreational Drug Use Recreational Drug Use: No - Living Situation & Occupation Living situation: Reports: (), with Family (Grandson) Occupation: Employed ([employer]) ED ROS GENERAL - Review of Systems Review Of Systems: Comprehensive ROS is negative, except as noted in HPI. ED EXAM, GENERAL - Physical Exam Exam: See Below Exam Limited By: No Limitations General Appearance: Alert, WD/WN, Mild Distress Ears: Normal External Exam, Hearing Grossly Normal Nose: Normal Inspection Throat/Mouth: Normal Inspection, Normal Lips, Normal Voice, No Airway Compromise Head: Atraumatic Neck: Normal Inspection, Supple Respiratory/Chest: No Respiratory Distress, No Accessory Muscle Use, Chest Non- Tender, Wheezing (Expiratory wheezes noted to right lung) Cardiovascular: Normal Peripheral Pulses, Regular Rate, Rhythm, No Edema, No Murmur GI/Abdominal: Normal Bowel Sounds, Soft, Non-Tender, No Distention (Female) Exam: Deferred Rectal (Female) Exam: Deferred Back Exam: Normal Inspection Extremities: Normal Inspection Neurological: Alert, Oriented, Normal Cognition Psychiatric: Normal Affect, Normal Mood Skin Exam: Warm, Dry, Intact, Normal Color, No Rash Lymphatic: No Adenopathy Course - Vital Signs Text/Narrative:: As stated above, patient presents with 3-day history of cough. Physical exam reveals expiratory wheezing noted to the right posterior lobe. Occasional paroxysmal coarse nonproductive cough. Heart rate is regular without murmur. Remainder of physical exam is otherwise unremarkable. Will obtain a Covid, influenza, RSV swab. Also obtain a chest x-ray. I have also ordered for the patient receive an albuterol nebulizer treatment. Last Recorded V/S: Last Vital Signs Temp 97.5 F 04/26/21 12:40 Pulse 86 04/26/21 12:40 Resp 20 04/26/21 12:40 BP 133/84 04/26/21 12:40 Pulse Ox 95 04/26/21 13:26 - Orders/Labs/Meds Orders: Active Orders 24 hr Category Date Time Status RT Aerosol Therapy [RC] ASDIRECTED Care 04/26/21 13:05 Active Isolation [COMM] Routine Oth 04/26/21 13:38 Ordered Labs: Laboratory Tests 04/26/21 Range/Units 12:45 Influenza Type A RNA Negative (NEGATIVE) RSV RNA (INAAT) Positive H (NEGATIVE) Influenza Type B RNA Negative (NEGATIVE) SARS-CoV-2 RNA (ANAMARIA) Negative (NEGATIVE) Meds: Medications Discontinued Medications Generic Name Dose Route Start Last Admin Trade Name Freq PRN Reason Stop Dose Admin Albuterol 2.5 mg 04/26/21 13:05 04/26/21 13:26 Albuterol 0.083% 2.5 Mg/3 Ml Neb Soln NEB 04/26/21 13:06 2.5 mg ONETIME ONE Administration - Radiology Interpretation Free Text/Narrative:: Radiologist impression portable view of the chest: Heart size and mediastinum are within normal limits for portable technique. Lungs are clear with no acute parenchymal change. Structures show nothing acute. Impression: 1. Nothing acute seen on portable chest x-ray. - Re-Assessments/Exams Free Text/Narrative Re-Assessment/Exam: 04/26/21 14:04 Patient's RSV test comes back as positive, Covid positive antibody tests are negative. Discussed the results with the patient. She will be discharged home with prescription for Tessalon Perles and an albuterol inhaler. Departure - Departure Time of Disposition: 14:08 Disposition: Home, Self-Care 01 Condition: Good Clinical Impression: RSV (respiratory syncytial virus infection) - Discharge Information Prescriptions: Albuterol Sulfate [Albuterol Sulfate Hfa] 8.5 gm IH Q4H PRN #1 hfa.aer.ad PRN Reason: Shortness Of Breath Benzonatate [Tessalon Perles] 100 mg PO TID PRN #20 cap PRN Reason: Cough Instructions: Respiratory Syncytial Virus Infection, Adult Referrals: Brionna Mak NP [Primary Care Provider] - Additional Instructions: You were seen in the ED with a cough and vominting x 1 episode today. Chest xray was completed and was unremarkable. Covid, and influenza tests were negative. RSV test was positive. You did receive a nebulizer treatment while in the ED and it did seem to help with your wheezing. I have sent a prescription for a cough medication called Cesar Cortez to your pharmacy. You can take 1 tab 3 times daily for cough. I have also sent a prescription for an albuterol inhaler. You make take 2 puffs every 4 hours as needed for cough or shortness of breath. Get plenty of rest and drink plenty of fluids. May take tylenol 650mg every 4 hours as needed for pain or fever or ibuprofen 600 mg every 6-8 hours as needed for pain or fever. Should your condition worsen or change, do not hesitate return to the emergency department. Sepsis Event Note (ED) - Evaluation Sepsis Screening Result: No Definite Risk - Focused Exam Vital Signs: Vital Signs Temp Pulse Resp BP Pulse Ox Pulse Ox 04/26/21 13:26 95 04/26/21 12:40 97.5 F 86 20 133/84 95 - My Orders Last 24 Hours: My Active Orders 04/26/21 13:05 RT Aerosol Therapy [RC] ASDIRECTED 04/26/21 13:38 Isolation [COMM] Routine - Assessment/Plan Last 24 Hours: My Active Orders 04/26/21 13:05 RT Aerosol Therapy [RC] ASDIRECTED 04/26/21 13:38 Isolation [COMM] Routine
== END 2021-04-26 14:45 | disposition home or self-care (01) ==
LOC: JD.ED 12:03
DX: R05.9 Cough, unspecified (principal); R19.7 Diarrhea, unspecified; R11.10 Vomiting, unspecified; E66.9 Obesity, unspecified; E78.00 Pure hypercholesterolemia, unspecified; I10 Essential (primary) hypertension; I25.2 Old myocardial infarction; K21.9 Gastro-esophageal reflux disease without esophagitis; B97.4 Respiratory syncytial virus as the cause of diseases classified elsewhere; Z20.822 Contact with and (suspected) exposure to COVID-19; Z88.8 Allergy status to other drugs, medicaments and biological substances; Z79.899 Other long term (current) drug therapy; Z79.82 Long term (current) use of aspirin; Z68.41 Body mass index [BMI] 40.0-44.9, adult
CPT/HCPCS: 0240U; 71045; 87634; 94640; 99284

== ENCOUNTER 2021-04-27 16:20 | Emergency (ER) | payer BC ==
[2021-04-27 16:29] VITALS: BP 125/84; PULSE 104
[2021-04-27] MEDS ORDERED: Ketorolac 30 MG/ML SDV IVPUSH ONE (16:39)
[2021-04-27] MEDS ORDERED: Codeine/Promethazine 10-6.25 MG/5 ML Syrup 5 ML UD Cup PO ONE (16:39)
[2021-04-27] MEDS ORDERED: Sodium Chloride 0.9% 1,000 ML IV ONE (16:40)
--- NOTE | 2021-04-27 16:44 | EDM.PDOC ---
ED HPI GENERAL MEDICAL PROBLEM - General Chief Complaint: Respiratory Problem Stated Complaint: [facility] Time Seen by Provider: 04/27/21 16:33 Source of Information: Reports: Patient, RN Notes Reviewed History Limitations: Reports: No Limitations - History of Present Illness INITIAL COMMENTS - FREE TEXT/NARRATIVE: Patient is a 51-year-old female who presents to the ER via [facility] for her ongoing illness. Patient was evaluated in this ER yesterday, diagnosed with RSV. She was given Tessalon Perles, and albuterol inhaler and sent home with conservative recommendations. Patient states she has been using the albuterol inhaler and Tessalon Perles but the cough has not gotten any better, and she is now having nausea and vomiting so much that she cannot keep any sort of food or fluids down at all. States she is not eaten or drank anything at all today. States that she cannot take Tylenol ibuprofen as it "messes with her stomach". States she does have some esophagus issues and believes that she has some "swelling in this area". Patient has had mild fevers, cough, no shortness of breath. She had some mild wheezing noted yesterday on exam however today it is nonexistent. She is now complaining of nausea and vomiting but no diarrhea. - Related Data Allergies Allergy/AdvReac Type Severity Reaction Status Date / Time shellfish derived Allergy Other Verified 04/27/21 16:30 lisinopril AdvReac Mild Cough Verified 04/27/21 16:30 topiramate [From Topamax] AdvReac Mild Confusion Verified 04/27/21 16:30 Home Meds: Home Meds atorvaSTATin [Lipitor] 20 mg PO DAILY 04/20/15 [History] Ondansetron [Zofran ODT] 4 mg PO Q4H PRN 01/23/16 [History] Albuterol Sulfate [Proventil Hfa] 2 puff INH Q6H PRN 10/07/19 [History] Esomeprazole Magnesium [Nexium] 40 mg PO DAILY 10/07/19 [History] Fluticasone/Vilanterol [Breo Ellipta 200-25 MCG Inhalation Kit] 1 puff INH DAILY 10/07/19 [History] Montelukast [Singulair] 10 mg PO DAILY 10/07/19 [History] Sucralfate [Carafate] 1 gm PO BID 10/07/19 [History] amLODIPine [Norvasc] 5 mg PO DAILY 10/07/19 [History] hydroCHLOROthiazide [Hydrochlorothiazide] 25 mg PO DAILY 10/07/19 [History] Atovaquone/Proguanil [Malarone 250-100 MG] 1 tab PO DAILY 03/30/20 [History] DULoxetine [Cymbalta] 60 mg PO DAILY 03/30/20 [History] Famotidine [Pepcid] 20 mg PO DAILY 03/30/20 [History] tiZANidine [Zanaflex] 4 mg PO Q8H PRN 03/30/20 [History] Cyclobenzaprine [Flexeril] 10 mg PO TID PRN #20 tab 05/23/20 [Rx] Aspirin [Halfprin] 81 mg PO DAILY 08/30/20 [History] Codeine/Promethazine [Phenergan with Codeine] 5 ml PO Q4HR PRN #120 ml 08/30/20 [Rx] Pantoprazole Sodium [Protonix] 40 mg PO DAILY 08/30/20 [History] Albuterol Sulfate [Albuterol Sulfate Hfa] 8.5 gm IH Q4H PRN #1 hfa.aer.ad 04/26/21 [Rx] Codeine/Promethazine [Phenergan with Codeine] 5 ml PO Q4HR PRN #120 ml 04/27/21 [Rx] Ondansetron [Zofran ODT] 4 mg PO Q8H PRN #15 tab.dis 04/27/21 [Rx] Past Medical History HEENT History: Reports: Impaired Vision Other HEENT History: wears glasses Cardiovascular History: Reports: Angina, High Cholesterol, Hypertension, [place] Respiratory History: Reports: Asthma, Sleep Apnea, SOB Gastrointestinal History: Reports: Colon Polyp, Gastritis, GERD Other Gastrointestinal History: Precancerous colon, chronic abdominal pain, esophagitis, colon polyp, diagnostic laparoscopy Genitourinary History: Reports: Renal Calculus, Retention, Urinary, UTI, Recurrent 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: , 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 (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 Below) 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: ovarian sx Musculoskeletal History: Reports: Fracture, Other (See Below) Other Musculoskeletal History: lumbar radiculopathy, ulnar neuropathy, bilateral carpal tunnel syndrome, polyarthralgia, right knee pain, right IT band syndrome Neurological History: Reports: Concussion, Other (See Below) Other Neuro History: ulnar neuropathy Psychiatric History: Reports: Anxiety, Depression Endocrine/Metabolic History: Reports: Obesity/BMI 30+ Hematologic History: Reports: Anemia Immunologic History: Reports: None Oncologic (Cancer) History: Reports: Other (See Below) Other Oncologic History: pre-cancer on colon polyp. Dermatologic History: Reports: None - Infectious Disease History Infectious Disease History: Reports: Chicken Pox Other Infectious Disease History: recent trip to [facility], [place] - Past Surgical History Head Surgeries/Procedures: Reports: None HEENT Surgical History: Reports: Oral Surgery Other HEENT Surgeries/Procedures: teeth removed Cardiovascular Surgical History: Reports: None Respiratory Surgical History: Reports: None GI Surgical History: Reports: Appendectomy, Cholecystectomy, Colonoscopy, EGD, Hernia, Abdominal Other GI Surgeries/Procedures: scar tissure removed from stomach, lysis of adhesions Female Surgical History: Reports: Hysterectomy, Tubal Ligation Endocrine Surgical History: Reports: None Neurological Surgical History: Reports: None Musculoskeletal Surgical History: Reports: Arthroscopic Knee, Shoulder Surgery, Other (See Below) Other Musculoskeletal Surgeries/Procedures:: left shoulder video arthroscopy, left bicep tenotomy Oncologic Surgical History: Reports: None Social & Family History - Family History Family Medical History: No Pertinent Family History - Tobacco Use Tobacco Use Status *Q: Never Tobacco User Second Hand Smoke Exposure: No - Caffeine Use Caffeine Use: Reports: None Caffeine Use Comment: Pt states she is currently not using caffeine as she is preparing for bariatric surgery - Recreational Drug Use Recreational Drug Use: Yes - Living Situation & Occupation Living situation: Reports: (), with Family (Grandson) Occupation: Employed ([employer]) ED ROS GENERAL - Review of Systems Review Of Systems: Comprehensive ROS is negative, except as noted in HPI. ED EXAM, GENERAL - Physical Exam Exam: See Below Exam Limited By: No Limitations General Appearance: Alert, WD/WN, No Apparent Distress Respiratory/Chest: No Respiratory Distress, Lungs Clear, Normal Breath Sounds, No Accessory Muscle Use, Chest Non-Tender Cardiovascular: Normal Peripheral Pulses, Regular Rate, Rhythm, No Edema GI/Abdominal: Normal Bowel Sounds, Soft, Non-Tender, No Distention, No Mass Extremities: Normal Inspection, Normal Capillary Refill Neurological: Alert, Oriented, Normal Cognition, No Motor/Sensory Deficits Psychiatric: Normal Affect, Normal Mood Skin Exam: Warm, Dry, Intact, Normal Color, No Rash Course - Vital Signs Last Recorded V/S: Last Vital Signs Temp 96.8 F L 04/27/21 16:27 Pulse 104 H 04/27/21 16:27 Resp 24 H 04/27/21 16:27 BP 125/84 04/27/21 16:27 Pulse Ox 95 04/27/21 16:27 - Orders/Labs/Meds Labs: Laboratory Tests 04/27/21 04/27/21 Range/Units 16:55 16:55 WBC 6.81 (3.98-10.04) K/mm3 RBC 5.17 (3.98-5.22) M/mm3 Hgb 15.2 (11.2-15.7) gm/dl Hct 45.2 H (34.1-44.9) % MCV 87.4 (79.4-94.8) fl MCH 29.4 (25.6-32.2) pg MCHC 33.6 (32.2-35.5) g/dl RDW Std Deviation 42.8 (36.4-46.3) fL Plt Count 310 (182-369) K/mm3 MPV 10.1 (9.4-12.3) fl Neut % (Auto) 71.1 (34.0-71.1) % Lymph % (Auto) 15.0 L (19.3-51.7) % Alexander % (Auto) 11.2 (4.7-12.5) % Eos % (Auto) 1.5 (0.7-5.8) Baso % (Auto) 0.6 (0.1-1.2) % Neut # (Auto) 4.85 (1.56-6.13) K/mm3 Lymph # (Auto) 1.02 L (1.18-3.74) K/mm3 Alexander # (Auto) 0.76 H (0.24-0.36) K/mm3 Eos # (Auto) 0.10 (0.04-0.36) K/mm3 Baso # (Auto) 0.04 (0.01-0.08) K/mm3 Sodium 141 (136-145) mEq/L Potassium 3.1 L (3.5-5.1) mEq/L Chloride 102 (98-107) mEq/L Carbon Dioxide 25 (21-32) mEq/L Anion Gap 17.1 H (5-15) BUN 19 H (7-18) mg/dL Creatinine 1.1 H (0.55-1.02) mg/dL Est Cr Clr Drug Dosing TNP Estimated GFR (MDRD) 52 (>60) mL/min BUN/Creatinine Ratio 17.3 (14-18) Glucose 115 H (70-99) mg/dL Calcium 9.2 (8.5-10.1) mg/dL Total Bilirubin 0.7 (0.2-1.0) mg/dL AST 69 H (15-37) U/L ALT 106 H (14-59) U/L Alkaline Phosphatase 171 H (46-116) U/L Total Protein 7.3 (6.4-8.2) g/dl Albumin 3.9 (3.4-5.0) g/dl Globulin 3.4 gm/dL Albumin/Globulin Ratio 1.2 (1-2) Meds: Medications Discontinued Medications Generic Name Dose Route Start Last Admin Trade Name Freq PRN Reason Stop Dose Admin Sodium Chloride 1,000 mls @ 999 mls/hr 04/27/21 16:40 04/27/21 16:52 Normal Saline IV 04/27/21 17:40 999 mls/hr ONETIME ONE Administration Ketorolac Tromethamine 30 mg 04/27/21 16:39 04/27/21 16:52 Ketorolac 30 Mg/Ml Sdv IVPUSH 04/27/21 16:40 30 mg ONETIME ONE Administration Potassium Chloride 40 meq 04/27/21 17:41 Potassium Chloride 20 Meq Tab.Er PO 04/27/21 17:42 ONETIME ONE Promethazine HCl/Codeine 10 ml 04/27/21 16:39 04/27/21 16:52 Codeine/Promethazine 10-6.25 Mg/5 Ml Syrup 5 Ml Ud Cup PO 04/27/21 16:40 10 ml ONETIME ONE Administration - Re-Assessments/Exams Free Text/Narrative Re-Assessment/Exam: 04/27/21 16:43 Patient presents to the ER for her ongoing illness. We will go ahead and give her some IV fluids, she was given some IV Zofran in the ambulance for nausea we will go ahead and check some basic labs and try some codeine with Phenergan cough syrup for her cough. 12/29/21 17:41 Patient's labs have resulted, CBC is unremarkable, CMP impressive for a low potassium at 3.1, elevated BUN at 19 and creatinine at 1.1, with a slightly low GFR at 53. Patient again has been having nausea and vomiting so this is likely dehydration we have given her some IV fluids, patient be reassessed at bedside and see if she is feeling any better. Plan will be to send her home with some stronger cough medications and may be some nausea medications and have her follow-up in clinic if not much better. 04/27/21 17:48 Patient was reassessed at bedside, states she is feeling a little bit better still has a pretty rough cough and does not think she can return to work tomorrow. Was asking for work note. This is fine with me will go ahead discharge home with work note, some cough medication and nausea medication. Departure - Departure Time of Disposition: 17:48 Disposition: Home, Self-Care 01 Condition: Good Clinical Impression: Nausea & vomiting Qualifiers: Vomiting type: unspecified Qualified Code(s): R11.2 - Nausea with vomiting, unspecified - Discharge Information *PRESCRIPTION DRUG MONITORING PROGRAM REVIEWED*: No *COPY OF PRESCRIPTION DRUG MONITORING REPORT IN PATIENT MAGGIE: No Instructions: Nausea, Adult, [id number] Referrals: Brionna Mak NP [Primary Care Provider] - Forms: ED Department Discharge, ED Return to Work/School Form Additional Instructions: You were evaluated in the ER today for nausea and vomiting with associated RSV diagnosis. You were given some IV fluids and medications for management of this, and this s eemed to help relieve some of your symptoms. You have been given a prescription for cough medication and nausea medications. These have been electronically prescribed to [facility] near [facility], you may go there to fill these and take as prescribed. I would recommend that if you are having nausea and vomiting, you stick to a clear liquid diet for the next 24 to 48 hours and advance to bland diet as tolerated. I would recommend that you discontinue use of the Tessalon Perles as these do not seem to be effective for you. Please continue all other medications as previously prescribed. Do not hesitate to return to the ER at any time if symptoms change or worsen. Sepsis Event Note (ED) - Evaluation Sepsis Screening Result: Possible Sepsis Risk - Focused Exam Vital Signs: Vital Signs Temp Pulse Resp BP Pulse Ox 04/27/21 16:27 96.8 F L 104 H 24 H 125/84 95
[2021-04-27] MEDS ORDERED: Potassium Chloride 20 MEQ Tab.ER PO ONE (17:41)
== END 2021-04-27 18:11 | disposition home or self-care (01) ==
LOC: JD.ED 16:20
DX: R11.2 Nausea with vomiting, unspecified (principal); E78.00 Pure hypercholesterolemia, unspecified; I10 Essential (primary) hypertension; I25.2 Old myocardial infarction; K21.9 Gastro-esophageal reflux disease without esophagitis; E66.9 Obesity, unspecified; Z68.30 Body mass index [BMI] 30.0-30.9, adult; Z91.013 Allergy to seafood; Z88.8 Allergy status to other drugs, medicaments and biological substances; Z79.899 Other long term (current) drug therapy
CPT/HCPCS: 36415; 80053; 85025; 96374; 99284; A9270; J1885; J7030

== ENCOUNTER 2021-11-14 11:32 | Emergency (ER) | payer BC ==
[2021-11-14] MEDS ORDERED: diphenhydrAMINE 50 MG Cap PO ONE (15:31)
[2021-11-14] MEDS ORDERED: Ketorolac 30 MG/ML SDV IVPUSH ONE (15:32)
[2021-11-14] MEDS ORDERED: Sodium Chloride 0.9% 1,000 ML IV SCH (15:45)
[2021-11-14] MEDS ORDERED: Metoclopramide 10 MG/2 ML SDV IVPUSH ONE (16:22)
[2021-11-14 17:54] VITALS: BP 120/72; PULSE 64
== END 2021-11-14 17:35 | disposition home or self-care (01) ==
LOC: JD.ED 11:32
DX: R51.9 Headache, unspecified (principal); E78.00 Pure hypercholesterolemia, unspecified; I10 Essential (primary) hypertension; I25.2 Old myocardial infarction; E66.9 Obesity, unspecified; Z68.25 Body mass index [BMI] 25.0-25.9, adult; Z91.013 Allergy to seafood; Z88.8 Allergy status to other drugs, medicaments and biological substances; Z79.899 Other long term (current) drug therapy; Z79.82 Long term (current) use of aspirin
CPT/HCPCS: 96361; 96374; 96375; 99283; J1885; J2765; J7030; Q0163

== ENCOUNTER 2021-11-21 15:05 | Emergency (ER) | payer BC ==
[2021-11-21 15:34] VITALS: BP 126/75; PULSE 99
[2021-11-21] MEDS ORDERED: Metoclopramide 10 MG/2 ML SDV IVPUSH ONE (15:52)
[2021-11-21] MEDS ORDERED: Sodium Chloride 0.9% 10 ML Syringe FLUSH PRN (15:52)
[2021-11-21] MEDS ORDERED: Ketorolac 30 MG/ML SDV IVPUSH ONE (15:52)
[2021-11-21] MEDS ORDERED: Sodium Chloride 0.9% 1,000 ML IV ONE (15:52)
[2021-11-21] MEDS ORDERED: diphenhydrAMINE 50 MG/ML SDV IVPUSH ONE (15:52)
[2021-11-21] MEDS ORDERED: Acetaminophen/Butalbital/Caffeine 325-50-40 MG Tab PO ONE (17:28)
== END 2021-11-21 20:17 | disposition home or self-care (01) ==
LOC: JD.ED 15:05
DX: R51.9 Headache, unspecified (principal); E78.00 Pure hypercholesterolemia, unspecified; I10 Essential (primary) hypertension; I25.2 Old myocardial infarction; K21.9 Gastro-esophageal reflux disease without esophagitis; E66.9 Obesity, unspecified; Z68.34 Body mass index [BMI] 34.0-34.9, adult; Z91.013 Allergy to seafood; Z88.8 Allergy status to other drugs, medicaments and biological substances; Z79.899 Other long term (current) drug therapy
CPT/HCPCS: 36415; 80053; 85025; 96361; 96374; 96375; 99284; A9270; J1200; J1885; J2765; J3490; J7030; 99283

== ENCOUNTER 2021-11-27 11:26 | Emergency (ER) | payer BC ==
[2021-11-27 11:50] VITALS: BP 133/82; PULSE 97
[2021-11-27] MEDS ORDERED: Ondansetron 4 MG/2 ML SDV IVPUSH ONE (12:00)
[2021-11-27] MEDS ORDERED: Sodium Chloride 0.9% 10 ML Syringe FLUSH PRN (12:00)
[2021-11-27] MEDS ORDERED: HYDROmorphone 0.5 MG/0.5 ML Syringe IVPUSH ONE (12:00)
[2021-11-27] MEDS ORDERED: Metoclopramide 10 MG/2 ML SDV IVPUSH ONE (13:36)
[2021-11-27] MEDS ORDERED: Sodium Chloride 0.9% 1,000 ML IV ONE (13:36)
[2021-11-27] MEDS ORDERED: Ketorolac 30 MG/ML SDV IVPUSH ONE (13:36)
[2021-11-27] MEDS ORDERED: diphenhydrAMINE 50 MG/ML SDV IVPUSH ONE (13:36)
== END 2021-11-27 15:26 | disposition home or self-care (01) ==
LOC: SUPCPDRO 11:26 → JD.ED 11:26
DX: R51.9 Headache, unspecified (principal); E78.00 Pure hypercholesterolemia, unspecified; I10 Essential (primary) hypertension; I25.2 Old myocardial infarction; E66.9 Obesity, unspecified; Z68.32 Body mass index [BMI] 32.0-32.9, adult; Z91.013 Allergy to seafood; Z88.8 Allergy status to other drugs, medicaments and biological substances; Z79.899 Other long term (current) drug therapy; Z20.822 Contact with and (suspected) exposure to COVID-19
CPT/HCPCS: 36415; 70450; 71045; 80053; 83735; 84484; 85025; 86140; 87635; 93005; 96361; 96374; 96375; 99285; J1170; J1200; J1885; J2405; J2765; J3490; J7030; U0002

== ENCOUNTER 2021-11-29 12:36 | Emergency (ER) | payer BC | END 2021-11-29 13:15 | LOC: JD.ED 12:36 | DX: Z53.21 Procedure and treatment not carried out due to patient leaving prior to being seen by health care provider (principal) ==

== ENCOUNTER 2022-03-11 16:16 | Emergency (ER) | payer BC ==
[2022-03-11] MEDS ORDERED: Sodium Chloride 0.9% 10 ML Syringe IV ONE (16:17)
[2022-03-11 17:21] VITALS: BP 118/78; PULSE 70
[2022-03-11] MEDS ORDERED: Ondansetron 4 MG/2 ML SDV IVPUSH ONE (19:22)
[2022-03-11] MEDS ORDERED: Sodium Chloride 0.9% 10 ML Syringe FLUSH PRN (19:22)
[2022-03-11] MEDS ORDERED: Iopamidol 612 MG/ML 100 ML Bottle IV ONE (21:23)
== END 2022-03-12 00:51 | disposition home or self-care (01) ==
LOC: JD.ED 16:16
DX: R07.9 Chest pain, unspecified (principal); E78.00 Pure hypercholesterolemia, unspecified; I10 Essential (primary) hypertension; I25.2 Old myocardial infarction; E66.9 Obesity, unspecified; Z68.30 Body mass index [BMI] 30.0-30.9, adult; Z91.013 Allergy to seafood; Z88.8 Allergy status to other drugs, medicaments and biological substances; Z79.899 Other long term (current) drug therapy; Z79.82 Long term (current) use of aspirin; Z90.49 Acquired absence of other specified parts of digestive tract
CPT/HCPCS: 36415; 71045; 74177; 80053; 81001; 83605; 84484; 85007; 85027; 93005; 96374; 99285; J2405; J3490; Q9967

== ENCOUNTER 2022-03-20 15:56 | Emergency (ER) | payer BC ==
[2022-03-20 16:01] VITALS: BP 155/86; PULSE 69
[2022-03-20] MEDS ORDERED: Sodium Chloride 0.9% 10 ML Syringe FLUSH PRN (16:04)
[2022-03-20] MEDS ORDERED: HYDROmorphone 1 MG/ML Syringe IVPUSH STA (16:04)
[2022-03-20] MEDS ORDERED: Ondansetron 4 MG/2 ML SDV IVPUSH ONE (16:04)
[2022-03-20] MEDS ORDERED: Sodium Chloride 0.9% 1,000 ML IV SCH (16:15)
== END 2022-03-20 19:00 | disposition home or self-care (01) ==
LOC: JD.ED 15:56
DX: N13.2 Hydronephrosis with renal and ureteral calculous obstruction (principal); E78.00 Pure hypercholesterolemia, unspecified; I10 Essential (primary) hypertension; I25.2 Old myocardial infarction; J45.909 Unspecified asthma, uncomplicated; K21.9 Gastro-esophageal reflux disease without esophagitis; E66.9 Obesity, unspecified; Z68.30 Body mass index [BMI] 30.0-30.9, adult; Z91.013 Allergy to seafood; Z88.8 Allergy status to other drugs, medicaments and biological substances; Z79.82 Long term (current) use of aspirin; Z79.899 Other long term (current) drug therapy
CPT/HCPCS: 36415; 74176; 80053; 81001; 85025; 96361; 96374; 96375; 99284; J1170; J2405; J3490; J7030

== ENCOUNTER 2022-07-01 11:51 | Emergency (ER) | payer BC ==
[2022-07-01] MEDS ORDERED: Ondansetron 4 MG/2 ML SDV IVPUSH ONE (12:13)
[2022-07-01] MEDS ORDERED: HYDROmorphone 0.5 MG/0.5 ML Syringe IVPUSH ONE ×2 (12:27→13:30)
[2022-07-01] MEDS ORDERED: diphenhydrAMINE 50 MG/ML SDV IVPUSH ONE (12:27)
[2022-07-01] MEDS ORDERED: Sodium Chloride 0.9% 1,000 ML IV ONE (12:28)
[2022-07-01 13:19] LABS: ESTIMATED GFR 76 mL/min (>60)
[2022-07-01] MEDS ORDERED: Iopamidol 612 MG/ML 100 ML Bottle IVPUSH ONE (13:26)
[2022-07-01] MEDS ORDERED: Sodium Chloride 0.9% 10 ML Syringe FLUSH ONE (13:30)
[2022-07-01 15:35] VITALS: BP 115/69; PULSE 66
== END 2022-07-01 15:35 | disposition home or self-care (01) ==
LOC: JD.ED 11:51
DX: K57.32 Diverticulitis of large intestine without perforation or abscess without bleeding (principal); E78.00 Pure hypercholesterolemia, unspecified; I10 Essential (primary) hypertension; I25.2 Old myocardial infarction; J45.909 Unspecified asthma, uncomplicated; K21.9 Gastro-esophageal reflux disease without esophagitis; E66.9 Obesity, unspecified; Z68.32 Body mass index [BMI] 32.0-32.9, adult; Z91.013 Allergy to seafood; Z88.8 Allergy status to other drugs, medicaments and biological substances; Z91.041 Radiographic dye allergy status; Z79.899 Other long term (current) drug therapy; Z79.82 Long term (current) use of aspirin
CPT/HCPCS: 36415; 74177; 80053; 81001; 83690; 85025; 86140; 96361; 96374; 96375; 96376; 99284; J1170; J1200; J2405; J3490; J7030; Q9967

== ENCOUNTER 2022-07-03 12:16 | Emergency (ER) | payer BC ==
[2022-07-03] MEDS ORDERED: HYDROmorphone 1 MG/ML Syringe IVPUSH STA (12:27)
[2022-07-03] MEDS ORDERED: Ondansetron 4 MG/2 ML SDV IVPUSH ONE (12:27)
[2022-07-03] MEDS ORDERED: Sodium Chloride 0.9% 10 ML Syringe FLUSH PRN (12:27)
[2022-07-03] MEDS ORDERED: Sodium Chloride 0.9% 1,000 ML IV ONE (12:28)
[2022-07-03] MEDS ORDERED: HYDROmorphone 0.5 MG/0.5 ML Syringe IVPUSH ONE (13:54)
[2022-07-03] MEDS ORDERED: Amoxicillin/Clavulanate K 875-125 MG Tab PO ONE (13:54)
[2022-07-03 16:18] VITALS: BP 126/68; PULSE 58
== END 2022-07-03 15:58 | disposition home or self-care (01) ==
LOC: JD.ED 12:16
DX: K57.92 Diverticulitis of intestine, part unspecified, without perforation or abscess without bleeding (principal); E78.00 Pure hypercholesterolemia, unspecified; I10 Essential (primary) hypertension; I25.2 Old myocardial infarction; J45.909 Unspecified asthma, uncomplicated; K21.9 Gastro-esophageal reflux disease without esophagitis; E66.9 Obesity, unspecified; Z68.31 Body mass index [BMI] 31.0-31.9, adult; Z91.013 Allergy to seafood; Z88.8 Allergy status to other drugs, medicaments and biological substances; Z91.041 Radiographic dye allergy status; Z79.899 Other long term (current) drug therapy; Z79.82 Long term (current) use of aspirin
CPT/HCPCS: 36415; 80053; 85025; 86140; 96361; 96374; 96375; 96376; 99284; A9270; J1170; J2405; J3490; J7030

== ENCOUNTER 2023-04-03 16:10 | Emergency (ER) | payer BC, OTHER ==
[2023-04-03] MEDS ORDERED: Sodium Chloride 0.9% 10 ML Syringe FLUSH PRN (17:01)
[2023-04-03] MEDS ORDERED: Ketorolac 30 MG/ML SDV IVPUSH ONE (17:01)
[2023-04-03] MEDS ORDERED: Prochlorperazine 10 MG/2 ML SDV IVPUSH ONE (17:04)
[2023-04-03] MEDS ORDERED: Sodium Chloride 0.9% 1,000 ML IV SCH (17:15)
[2023-04-03 17:35] LABS: BASOPHILS PERCENT AUTO 0.5 % (0.0-1.0); EOSINOPHILS ABSOLUTE AUTO 0.2 K/mm3 (0.0-0.4); HEMATOCRIT 43.5 % (37.0-47.0); HEMOGLOBIN 14.6 gm/dl (12.0-16.0); IMMATURE GRAN ABSOLUTE AUTO 0.02 K/mm3 (0.00-0.05); IMMATURE GRAN PERCENT AUTO 0.3 % (0.0-0.4); LYMPHOCYTES ABSOLUTE AUTO 1.9 K/mm3 (1.0-4.8); LYMPHOCYTES PERCENT AUTO 23.7 % (24.0-44.0); MEAN CORPUSCULAR HEMOGLOBIN 29.9 pg (28.0-32.0); MEAN CORPUSCULAR HGB CONC 33.6 g/dl (32.0-36.0); MEAN CORPUSCULAR VOLUME 89.1 fl (83.0-99.0); MONOCYTES ABSOLUTE AUTO 0.6 K/mm3 (0.0-0.8); MONOCYTES PERCENT AUTO 7.4 % (0.0-8.0); NEUTROPHILS ABSOLUTE AUTO 5.2 K/mm3 (1.8-7.7); NEUTROPHILS PERCENT AUTO 66.1 % (41.0-71.0); PLATELET COUNT,PLT 323 K/mm3 (150-400); RED BLOOD CELL COUNT 4.88 M/mm3 (4.10-5.30); WHITE BLOOD CELL COUNT,WBC 7.88 K/mm3 (3.9-11.3)
[2023-04-03 17:40] LABS: BILIRUBIN,URINE 1+ (Negative); COLOR,URINE YELLOW (Yellow); GLUCOSE,URINE NEGATIVE (Negative); KETONES,URINE TRACE (Negative); LEUKOCYTE ESTERASE,URINE TRACE (Negative); NITRITE,URINE NEGATIVE (Negative); OCCULT BLOOD,URINE NEGATIVE (Negative); PROTEIN,URINE 1+ (Negative)
[2023-04-03 17:58] LABS: CORONAVIRUS COVID-19 NAA NEGATIVE (NEGATIVE); INFLUENZA A NAA NEGATIVE (NEGATIVE); RESPIRATORY SYNCYTIAL VIR NAA NEGATIVE (NEGATIVE)
[2023-04-03 18:12] LABS: APPEARANCE,URINE SLT CLOUDY (Clear)
[2023-04-03 18:13] LABS: BACTERIA,URINE FEW /hpf (FEW); MUCUS,URINE MANY /hpf (FEW); RBC,URINE 0-5 /hpf (0-5); SQUAMOUS EPITHELIAL CELLS,UR 0-5 /hpf (0-5); WBC,URINE 30-40 /hpf (0-5)
[2023-04-03 18:19] LABS: ALANINE AMINOTRANSFERASE,ALT 57 U/L (14-59); ALBUMIN 3.7 g/dl (3.4-5.0); ALKALINE PHOSPHATASE 140 U/L (46-116); ASPARTATE AMNIOTRANSFERASE,AST 34 U/L (15-37); BILIRUBIN TOTAL 0.5 mg/dL (0.2-1.0); BLOOD UREA NITROGEN,BUN 15 mg/dL (7-18); BUN/CREATININE RATIO 16.7 (14-18); C-REACTIVE PROTEIN <0.2 mg/dL (<1.0); CALCIUM 9.7 mg/dL (8.5-10.1); CARBON DIOXIDE,CO2 27 mEq/L (21-32); CHLORIDE,CL 104 mEq/L (98-107); CREATININE 0.9 mg/dL (0.55-1.02); EST CRCL DRUG DOSING (CG) 51.33 mL/min; ESTIMATED GFR 76 mL/min (>60); GLUCOSE RANDOM 106 mg/dL (70-99); PROTEIN TOTAL,TP 7.4 g/dl (6.4-8.2); SODIUM,NA 139 mEq/L (136-145)
[2023-04-03 19:44] VITALS: BP 118/75; PULSE 56
== END 2023-04-03 19:38 | disposition home or self-care (01) ==
LOC: JD.ED 16:10
DX: J01.90 Acute sinusitis, unspecified (principal); R11.2 Nausea with vomiting, unspecified; I25.2 Old myocardial infarction; I10 Essential (primary) hypertension; E66.9 Obesity, unspecified; E78.00 Pure hypercholesterolemia, unspecified; Z20.822 Contact with and (suspected) exposure to COVID-19; Z91.013 Allergy to seafood; Z91.041 Radiographic dye allergy status; Z88.8 Allergy status to other drugs, medicaments and biological substances; Z79.82 Long term (current) use of aspirin; Z79.899 Other long term (current) drug therapy; Z79.2 Long term (current) use of antibiotics; Z68.35 Body mass index [BMI] 35.0-35.9, adult
CPT/HCPCS: 0241U; 36415; 80053; 81001; 85025; 86140; 87086; 96361; 96374; 96375; 99284; J0780; J1885; J3490; J7030

== ENCOUNTER 2023-05-09 06:00 | Day surgery (SDC) | payer BC ==
[~2023-05-09 06:00] MED LIST changes: -Lidocaine 1%/Sod Bicarbonate in NS 8.4% 1 ML Syringe IDERM PRN; +Sodium Chloride 0.9% 10 ML Syringe FLUSH SCH
[2023-05-09] MEDS ORDERED: Lidocaine 1% 10 ML MDV ONE (06:14)
[2023-05-09] MEDS ORDERED: Bupivacaine 0.25% 10 ML SDV ONE ×2 (06:14→06:40)
[2023-05-09] MEDS ORDERED: Triamcinolone Acetonide 40 MG/ML 1 ML SDV ONE (06:40)
[2023-05-09] MEDS ORDERED: Propofol 200 MG/20 ML SDV ONE (06:42)
[2023-05-09] MEDS ORDERED: Lidocaine 1% 6 ML ONE (06:42)
[2023-05-09] MEDS ORDERED: fentaNYL 100 MCG/2 ML SDV ONE (06:42)
[2023-05-09] MEDS ORDERED: Midazolam 1 MG/ML 2 ML SDV ONE (06:42)
[2023-05-09] MEDS ORDERED: ceFAZolin 2 GM Vial ONE (07:00)
[2023-05-09] MEDS ORDERED: Ondansetron 4 MG/2 ML SDV ONE (07:24)
[2023-05-09 09:33] VITALS: BP 101/70; PULSE 62
== END 2023-05-09 09:30 | disposition home or self-care (01) ==
LOC: JD.SDS 06:00
PROVIDERS: ATTEND Orthopaedic Surgery
DX: G56.02 Carpal tunnel syndrome, left upper limb (principal); M65.842 Other synovitis and tenosynovitis, left hand; E78.00 Pure hypercholesterolemia, unspecified; F41.1 Generalized anxiety disorder; E66.9 Obesity, unspecified; K21.9 Gastro-esophageal reflux disease without esophagitis; G47.30 Sleep apnea, unspecified; Z98.890 Other specified postprocedural states; Z68.34 Body mass index [BMI] 34.0-34.9, adult; Z91.013 Allergy to seafood; Z91.041 Radiographic dye allergy status; Z88.8 Allergy status to other drugs, medicaments and biological substances; Z87.891 Personal history of nicotine dependence
CPT/HCPCS: 20552; 26055; 64721; J0690; J2250; J2405; J2704; J3010; J3301; J3490; J7120; 01810